=== PATIENT | male | born 1955 | race Two or more races ===

== ENCOUNTER 2017-07-03 09:26 | Day surgery (SDC) | payer BC ==
[2017-06-30 09:17] VITALS: BMI 31.3
[2017-07-03] MEDS ORDERED: PROPOFOL 20 ML ONE ×2 (09:31)
[2017-07-03 11:12] VITALS: BP 134/66; PULSE 62; TEMP 98.2
== END 2017-07-03 11:48 | disposition home or self-care (01) ==
LOC: FASU-ENDO 09:26
PROVIDERS: ATTEND Internal Medicine Gastroenterology
PROC: 0DJD8ZZ Inspection of Lower Intestinal Tract, Via Natural or Artificial Opening Endoscopic (ICD-10-PCS; principal; 2017-07-03 10:40)
DX: Z85.038 Personal history of other malignant neoplasm of large intestine (principal); Z98.0 Intestinal bypass and anastomosis status

== ENCOUNTER 2017-10-04 00:57 | Inpatient (IN) | payer BC ==
[2017-10-04] MEDS ORDERED: levETIRAcetam 500 MG/5 ML INJECTION VIAL IVPB ONE (01:06)
[2017-10-04] MEDS ORDERED: SODIUM CHLORIDE 1,000 ML IV ONE (01:08)
--- NOTE | 2017-10-04 01:08 | PDOC ---
History of Present Illness - General History Source: Patient Exam Limitations: No Limitations - History of Present Illness Initial Comments: 10/04/17 02:13 The patient is a 62 year old male with a significant PMH of colon ca(1994), hypertension, and hyperlipidemia who presents to the emergency department via EMS with a partial complex seizure. The patient was in the ED earlier today by which he was here for lower right leg numbness 2 days ago and pressure in the back of his head. The patient left the ED before being seen by an ED provider. The patient was brought in via EMS with partial complex seizure. The patient reports that he was feeling okay earlier today. He denies any symptoms prior to his episod. The patient denies any chest pain, shortness of breath, headache and dizziness.The patient denies fever, chills, nausea, vomit, diarrhea, constipation or urinary symptoms. The patient denies any other complaints. PCP: Dr. York <Cas Moffett - Last Filed: 10/04/17 02:13> <Kyra Ann - Last Filed: 10/04/17 02:53> - General Stated Complaint: SEIZURE Past History <Cas Moffett - Last Filed: 10/04/17 02:13> - Past Medical History Anemia: No Asthma: No Cancer: Yes (COLON CANCER 1994) Cardiac Disorders: No CVA: No COPD: No CHF: No Dementia: No Diabetes: No GI Disorders: Yes (COLON CANCER) Disorders: No HTN: Yes Hypercholesterolemia: Yes Liver Disease: No Seizures: No Thyroid Disease: No - Surgical History Abdominal Surgery: Yes (COLON RESECTION WITH CHEMO 1994) Appendectomy: No Cardiac Surgery: No Cholecystectomy: No Lung Surgery: No Neurologic Surgery: No Orthopedic Surgery: No - Suicide/Smoking/Psychosocial Hx Smoking History: Never smoked Have you smoked in the past 12 months: No Hx Alcohol Use: No Drug/Substance Use Hx: No Substance Use Type: Alcohol Hx Substance Use Treatment: No <Kyra Ann - Last Filed: 10/04/17 02:53> - Past Medical History Allergies/Adverse Reactions: Allergies Allergy/AdvReac Type Severity Reaction Status Date / Time No Known Allergies Allergy Verified 10/04/17 01:15 Home Medications: Ambulatory Orders Amlodipine Besylate/Benazepril [Lotrel 10-20 mg Capsule] 1 each PO DAILY Atorvastatin Ca [Lipitor] 80 mg PO HS 06/30/17 Hydrochlorothiazide [Hctz -] 12.5 mg PO DAILY 06/30/17 Review of Systems - Review of Systems Able to Perform ROS?: Yes Comments:: 10/04/17 02:04 CONSTITUTIONAL: (+) partial complex seizure Absent: fever, chills, diaphoresis, generalized weakness, malaise, loss of appetite HEENT: Absent: rhinorrhea, nasal congestion, throat pain, throat swelling, difficulty swallowing, mouth swelling, ear pain, eye pain, visual Changes CARDIOVASCULAR: Absent: chest pain, syncope, palpitations, irregular heart rate, lightheadedness , peripheral edema RESPIRATORY: Absent: cough, shortness of breath, dyspnea with exertion, orthopnea, wheezing, stridor, hemoptysis GASTROINTESTINAL: Absent: abdominal pain, abdominal distension, nausea, vomiting, diarrhea, constipation, melena, hematochezia GENITOURINARY: Absent: dysuria, frequency, urgency, hesitancy, hematuria, flank pain, genital pain MUSCULOSKELETAL: Absent: myalgia, arthralgia, joint swelling SKIN: Absent: rash, itching, pallor HEMATOLOGIC/IMMUNOLOGIC: Absent: easy bleeding, easy bruising, lymphadenopathy, frequent infections ENDOCRINE: Absent: unexplained weight gain, unexplained weight loss, heat intolerance, cold intolerance NEUROLOGIC: (+)seizure Absent: headache, focal weakness or paresthesias, dizziness, gait deferred, mental status changes, bladder or bowel incontinence PSYCHIATRIC: Absent: anxiety, depression, suicidal or homicidal ideation, hallucinations. <Cas Moffett - Last Filed: 10/04/17 02:13> *Physical Exam - Vital Signs Last Vital Signs Temp Pulse Resp BP Pulse Ox 97.7 F 77 18 164/80 98 10/04/17 01:09 10/04/17 01:09 10/04/17 01:09 10/04/17 01:09 10/04/17 01:26 - Physical Exam Comments: 10/04/17 02:03 GENERAL: (+) partial complex seizure Well developed, well nourished. Awake, alert and oriented X3. No acute distress. HEENT: Normocephalic, atraumatic. PERRLA, EOMI. No conjunctival pallor. Sclera are non- icteric. Moist mucous membranes. Oropharynx is clear. NECK: Supple. Full ROM. No JVD. Carotid pulses 2+ and symmetric, without bruits. No thyromegaly. No lymphadenopathy. CARDIOVASCULAR: Regular rate and rhythm. No murmurs, rubs, or gallops. Distal pulses are 2+ and symmetric. PULMONARY: No evidence of respiratory distress. Lungs clear to auscultation bilaterally. No wheezing, rales or rhonchi. ABDOMINAL: Soft. Non-tender. Non-distended. No rebound or guarding. No organomegaly. Normoactive bowel sounds. MUSCULOSKELETAL Normal range of motion at all joints. No bony deformities or tenderness. No CVA tenderness. EXTREMITIES: No cyanosis. No clubbing. No edema. No calf tenderness. SKIN: Warm and dry. Normal capillary refill. No rashes. No jaundice. NEUROLOGICAL: (+) right jacksonian march Alert, awake and oriented X3 ,appropriate. Cranial nerves 2-12 intact. No deficits to light touch and temperature in face, upper extremities and lower extremities. No motor deficits in the in face, upper extremities and lower extremities. Normoreflexic in the upper and lower extremities. Normal speech. Toes are down-going bilaterally. Gait is normal without ataxia. PSYCHIATRIC: Cooperative. Good eye contact. Appropriate mood and affect. <Cas Moffett - Last Filed: 10/04/17 02:13> ED Treatment Course - LABORATORY CBC & Chemistry Diagram: 10/04/17 01:16 10/04/17 01:16 - ADDITIONAL ORDERS Additional order review: 10/04/17 01:16 RBC 4.55 MCV 88.6 MCHC 34.3 RDW 12.7 MPV 10.6 Neutrophils % 65.7 Lymphocytes % 27.5 Monocytes % 6.3 Eosinophils % 0.2 Basophils % 0.3 - Medications Given in the ED: ED Medications Discontinued Medications Generic Name Dose Route Start Last Admin Trade Name Freq PRN Reason Stop Dose Admin Levetiracetam 1,000 mg 10/04/17 01:06 10/04/17 01:36 Keppra Injection - IVPB 10/04/17 01:07 1,000 mg ONCE ONE Administration Lorazepam 2 mg 10/04/17 01:14 10/04/17 01:24 Ativan Injection - IVPUSH 10/04/17 01:15 2 mg ONCE ONE Administration <Cas Moffett - Last Filed: 10/04/17 02:13> - LABORATORY CBC & Chemistry Diagram: 10/04/17 01:16 10/04/17 01:16 <Kyra Ann - Last Filed: 10/04/17 02:53> Medical Decision Making - Medical Decision Making 10/04/17 02:48 62-old male brought in by ambulance with partial complex seizure. Past medical history significant for hypertension and colon cancer in the remote past. Patient was alert while he he had a right sided seizure with a witnessed July Findings and reveal a 3.4 cm x 2.2 cm area of edema in the left parietal lobe. It probably represents vasogenic edema and there may be an underlying mass which measures approximately 1.7 cm However, is difficult to evaluate non-contrast CT MRI is recommended for better characterization. No shift or herniation No hemorrhage. Osseous structures are intact Clinical is Dr. Duncan who recommended Keppra 500 mg twice a day, he felt that one dose of Decadron was adequate. I have suspicion neurosurgeon, Dr. Muhammad and he requested MRI of the brain with and without contrast using NPR protocol <Kyra Ann - Last Filed: 10/04/17 02:53> *DC/Admit/Observation/Transfer - Attestations Scribe Attestion: 10/04/17 02:04 Documentation prepared by Cas Moffett, acting as medical support specialist for Kyra Ann MD. <Cas Moffett - Last Filed: 10/04/17 02:13> - Discharge Dispostion Decision to Admit order: Yes <Kyra Ann - Last Filed: 10/04/17 02:53> Diagnosis at time of Disposition: Seizure, Mass of brain - Discharge Dispostion Condition at time of disposition: Fair - Referrals Referrals: Manuel York MD [Primary Care Provider] - - Patient Instructions - Post Discharge Activity
[2017-10-04 01:15] VITALS: BMI 30.8
[2017-10-04 01:37] LABS: BASO % 0.3 % (0-2.0); EOS % 0.2 % (0-4.5); HEMATOCRIT 40.3 % (35.4-49); HEMOGLOBIN 13.8 GM/dL (11.7-16.9); LYMPH % 27.5 % (8-40); MCH 30.4 pg (25.7-33.7); MCHC 34.3 g/dl (32.0-35.9); MEAN CELL VOLUME 88.6 fl (80-96); MEAN PLT VOLUME 10.6 fl (7.5-11.1); MONO % 6.3 % (3.8-10.2); NEUT % 65.7 % (42.8-82.8); PLATELET COUNT 247 K/MM3 (134-434); RBC 4.55 M/mm3 (4.00-5.60); RDW 12.7 % (11.9-15.9); WHITE BLOOD COUNT 11.9 K/mm3 (4.0-10.0)
[2017-10-04 02:01] LABS: ALBUMIN 3.7 g/dl (3.4-5.0); ANION GAP 8 (8-16); BILIRUBIN,TOTAL 0.9 mg/dL (0.2-1.0); BLOOD UREA NITROGEN 12 mg/dL (7-18); CALCIUM 8.7 mg/dL (8.5-10.1); CHLORIDE 104 mmol/L (98-107); CO2 27 mmol/L (21-32); CREATININE 0.9 mg/dL (0.7-1.3); GLUCOSE,RANDOM 158 mg/dL (74-106); SGOT/AST 11 U/L (15-37); SGPT/ALT 29 U/L (12-78); SODIUM 139 mmol/L (136-145); TOT PROT 7.1 g/dl (6.4-8.2)
[2017-10-04 02:04] LABS: ALK PHOS 95 U/L (45-117)
[2017-10-04] MEDS ORDERED: DEXAMETHASONE SOD PHOSPHATE 20 MG/5 ML VIAL IVPB STA (02:10)
[2017-10-04 02:23] LABS: INR 1.12 (0.82-1.09); PROTHROMBIN TIME (PATIENT) 12.6 SEC (9.7-13.0)
--- NOTE | 2017-10-04 02:44 | PN ---
Teaching Attending Note Name of Resident: Melodie Kim ATTENDING PHYSICIAN STATEMENT I saw and evaluated the patient. I reviewed the resident's note and discussed the case with the resident. I agree with the resident's findings and plan as documented. SUBJECTIVE: 62 M with hx. of colon ca (95), Last colo 2-3 months ago (normal as per pt) HTN , HLD, who presents with partial complex seizure. He had RL leg numbness 2 days ago. Also with associated pressure to back of his head. He returned after seizure and had a witness seizure in ED. States all his symptoms have resolved. Denies any chest pain or pressure. No N, V,D. No fevers or chills. OBJECTIVE: Physical: VS: Vital Signs Period Temp Pulse Resp BP Sys/Gardiner Pulse Ox Last 24 Hr 97.7 F 77 18 164/80 98-98 GEN: NAD, Resting in bed, AA0X3 HEENT: NCAT, PERRL, Throat without erythema or exudates CARD: RRR S1, S2 RESP: CTAB ABD: BSx4, NTD to palpation EXT: - C/C/E NEURO: CN II- XII intact, MS +5/5 CBCD WBC 11.9 K/mm3 (4.0-10.0) H 10/04/17 01:16 RBC 4.55 M/mm3 (4.00-5.60) 10/04/17 01:16 Hgb 13.8 GM/dL (11.7-16.9) 10/04/17 01:16 Hct 40.3 % (35.4-49) 10/04/17 01:16 MCV 88.6 fl (80-96) 10/04/17 01:16 MCHC 34.3 g/dl (32.0-35.9) 10/04/17 01:16 RDW 12.7 % (11.9-15.9) 10/04/17 01:16 Plt Count 247 K/MM3 (134-434) 10/04/17 01:16 MPV 10.6 fl (7.5-11.1) 10/04/17 01:16 CMP Sodium 139 mmol/L (136-145) 10/04/17 01:16 Potassium 4.0 mmol/L (3.5-5.1) 10/04/17 01:16 Chloride 104 mmol/L (98-107) 10/04/17 01:16 Carbon Dioxide 27 mmol/L (21-32) 10/04/17 01:16 Anion Gap 8 (8-16) 10/04/17 01:16 BUN 12 mg/dL (7-18) 10/04/17 01:16 Creatinine 0.9 mg/dL (0.7-1.3) 10/04/17 01:16 Creat Clearance w eGFR > 60 (>60) 10/04/17 01:16 Calcium 8.7 mg/dL (8.5-10.1) 10/04/17 01:16 Total Bilirubin 0.9 mg/dL (0.2-1.0) 10/04/17 01:16 AST 11 U/L (15-37) L 10/04/17 01:16 ALT 29 U/L (12-78) 10/04/17 01:16 Alkaline Phosphatase 95 U/L (45-117) 10/04/17 01:16 Total Protein 7.1 g/dl (6.4-8.2) 10/04/17 01:16 Albumin 3.7 g/dl (3.4-5.0) 10/04/17 01:16 EKG: CXR: No Acute Process CT HEAD: Findings and reveal a 3.4 cm x 2.2 cm area of edema in the left parietal lobe. It probably represents vasogenic edema and there may be an underlying mass which measures approximately 1.7 cm ASSESSMENT AND PLAN: 62 M with hx. of colon ca (95), HTN, HLD, who presents with partial complex seizure 1.) Seizure- Most likely secondary to brain mass - Seizure percautions - MRI Brain w/wo con - FU CT HEAD - Keppra 500 mg BID - S/P Dexamethasone - Neuro consulted and spoken to by ED 2.) Brain Mass with Edema - MRI Brain w/wo - Neuro Sx - As per neuro Keppra for sx. PPx - Also, one dose of Dexamethasone, which was sufficient as per EDs conversation with Neuro - Will eventually need CT CAP 3.) Hx. of Colon Ca - last colo 2-3 months ago - Normal as per pt. 3.) Dvt Ppx - SCDS Place in To8[facility]
--- NOTE | 2017-10-04 04:10 | HP ---
CHIEF COMPLAINT: seizure PCP: Dr. York GI: Dr. Guerrero HISTORY OF PRESENT ILLNESS: 62 yr old man with HTN, HLD, hx of colon ca(resection in 1994, recent colonoscopy 2-3 months ago without pathology) BIBEMS for new onset seizure. Pt was in ED earlier yesterday (10/03 4pm) for numbness in his lower right leg, after waiting 4 hours to be seen, he left BME. At home his son notes changes his is ability to move, pt has difficulty standing, worsening of his right leg numbness that now extended to his right torso. as they walked him to the car, he began to stiffen and tremble, by the time they got to the car his face was also affected with his mouth having turned down corners. the episode lasted 2- 3mins, he continued to have difficulty controlling this right side. He had a witnessed jacksonian seizure in the ED. during both episodes pt was conversant, alert, awake, no loss of bowel function , no post-ictal state. Pt was born in [facility], came to the [place] >30yrs ago, went back to visit 2 yrs ago. No travel outside of [facility]. 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 ER course was notable for: (1) head CT (2) decadron 10 (3) Recent Travel: none PAST MEDICAL HISTORY: HTN Colon Ca dx'd in 1994, s/p resection and chemo PAST SURGICAL HISTORY: colon resection in 1994 Social History: Smoking: never Alcohol: denies Drugs: denies Family History: mother with breast ca Allergies No Known Allergies Allergy (Verified 10/04/17 01:15) HOME MEDICATIONS: [facility], family brought in the bottles. Medication Instructions Recorded Amlodipine Besylate/Benazepril 1 each PO DAILY 03/21/12 [Lotrel 10-40 mg Capsule] Atorvastatin Ca [Lipitor] 80 mg PO HS 06/30/17 Hydrochlorothiazide [Hctz -] 12.5 mg PO DAILY 06/30/17 REVIEW OF SYSTEMS CONSTITUTIONAL: Absent: fever, chills, diaphoresis, generalized weakness, malaise, loss of appetite, weight change HEENT: Absent: rhinorrhea, nasal congestion, throat pain, throat swelling, difficulty swallowing, mouth swelling, ear pain, eye pain, visual changes CARDIOVASCULAR: Absent: chest pain, syncope, palpitations, irregular heart rate, lightheadedness , peripheral edema RESPIRATORY: Absent: cough, shortness of breath, dyspnea with exertion, orthopnea, wheezing, stridor, hemoptysis GASTROINTESTINAL: Absent: abdominal pain, abdominal distension, nausea, vomiting, diarrhea, constipation, melena, hematochezia GENITOURINARY: Absent: dysuria, frequency, urgency, hesitancy, hematuria, flank pain, genital pain MUSCULOSKELETAL: Absent: myalgia, arthralgia, joint swelling, back pain, neck pain SKIN: Absent: rash, itching, pallor HEMATOLOGIC/IMMUNOLOGIC: Absent: easy bleeding, easy bruising, lymphadenopathy, frequent infections ENDOCRINE: Absent: unexplained weight gain, unexplained weight loss, heat intolerance, cold intolerance NEUROLOGIC: Present:seizure, Absent: headache, focal weakness or paresthesias, dizziness, unsteady gait, mental status changes, bladder or bowel incontinence PSYCHIATRIC: Absent: anxiety, depression, hallucinations. PHYSICAL EXAMINATION Vital Signs - 24 hr 10/04/17 10/04/17 01:09 01:26 Temperature 97.7 F Pulse Rate 77 Respiratory 18 Rate Blood Pressure 164/80 O2 Sat by Pulse 98 98 Oximetry (%) GENERAL: Awake, alert, and fully oriented, in no acute distress. HEAD: Normal with no signs of trauma. EYES: Pupils equal, round and reactive to light, extraocular movements intact, sclera anicteric, conjunctiva clear. No lid lag. EARS, NOSE, THROAT: Ears normal, nares patent, oropharynx clear without exudates. Moist mucous membranes. NECK: Normal range of motion, supple without lymphadenopathy, JVD, or masses. LUNGS: Breath sounds equal, clear to auscultation bilaterally. No wheezes, and no crackles. No accessory muscle use. HEART: Regular rate and rhythm, normal S1 and S2 without murmur, rub or gallop. ABDOMEN: well-healed abdominal scar. Soft, nontender, not distended, normoactive bowel sounds, no guarding, no rebound, no masses. No hepatomegaly or splenomegaly. MUSCULOSKELETAL: Normal range of motion at all joints. No bony deformities or tenderness. No CVA tenderness. no paraspinal/spinal tenderness. UPPER EXTREMITIES: 2+ radial pulses, warm, well-perfused. No cyanosis. No clubbing. No peripheral edema. LOWER EXTREMITIES: 2+ dp pulses, warm, well-perfused. No calf tenderness. No peripheral edema. right anterior leg with abrasion - few days old from soccer - no surrounding erythema, no drainage. NEUROLOGICAL: Cranial nerves II-XII intact. Normal speech. facial symmetry, uvual midline. 5/5 handgrip, biceps/triceps/shoulder extension and flexion. 5/5 flex and ext on hip/knee/ankle/toes. downward toes. 2+ biceps/brachoradialis, knee and ankle reflexes b/l. sensation grossly intact on face, arms, lower legs , and abdomen, denies numbness/parasthesias. PSYCHIATRIC: Cooperative. Good eye contact. Appropriate mood and affect. SKIN: Warm, dry, normal turgor, no rashes or lesions noted, normal capillary refill. Laboratory Results - last 24 hr 10/04/17 10/04/17 10/04/17 01:16 01:16 01:16 WBC 11.9 H RBC 4.55 Hgb 13.8 Hct 40.3 MCV 88.6 MCH 30.4 MCHC 34.3 RDW 12.7 Plt Count 247 MPV 10.6 Neutrophils % 65.7 Lymphocytes % 27.5 Monocytes % 6.3 Eosinophils % 0.2 Basophils % 0.3 PT with INR 12.60 INR 1.12 Sodium 139 Potassium 4.0 Chloride 104 Carbon Dioxide 27 Anion Gap 8 BUN 12 Creatinine 0.9 Creat Clearance w eGFR > 60 Random Glucose 158 H Lactic Acid Calcium 8.7 Total Bilirubin 0.9 AST 11 L ALT 29 Alkaline Phosphatase 95 Creatine Kinase 89 Troponin I 0.03 Total Protein 7.1 Albumin 3.7 10/04/17 02:00 WBC RBC Hgb Hct MCV MCH MCHC RDW Plt Count MPV Neutrophils % Lymphocytes % Monocytes % Eosinophils % Basophils % PT with INR INR Sodium Potassium Chloride Carbon Dioxide Anion Gap BUN Creatinine Creat Clearance w eGFR Random Glucose Lactic Acid 1.3 Calcium Total Bilirubin AST ALT Alkaline Phosphatase Creatine Kinase Troponin I Total Protein Albumin ASSESSMENT/PLAN: 62 yr old man with HTN, colon ca, presents with new partial complex seizure found to have brain lesion admitted to [facility]. #seizure likely caused by brain lesion - ddx include malignancy(mets vs new primary), infection - f/u neurology and neurosurg recs, MRI pending, keppra 500mg po BID, one dose decadron given in ED - seizure precautions, neuro checks - r/o HIV(pt consents to be tested), r/o dm #leucocytosis - reactive vs infection, trend in the am, monitor for signs of infxn - pt without fever, chest xray clear, u/a pending, monitor off abx for now #HTN - lotrel , hospital formulary: norvasc 10 & lisinopril 40mg daily - hctz 12.5 mg daily #dvt: scd's, monitor off medical ac due to unclear nature of brain lesion #diet; low sodium #Code status: full code, designates his as healthcare proxy, form to be signed. Visit type - Emergency Visit Emergency Visit: Yes ED Registration Date: 10/04/17 Care time: The patient presented to the Emergency Department on the above date and was hospitalized for further evaluation of their emergent condition. - New Patient This patient is new to me today: Yes Date on this admission: 10/04/17 - Critical Care Critical Care patient: No Hospitalist Screening - Colonoscopy Questionnaire Colonoscopy Questionnaire: Colonoscopy Questionnaire - Patient: 50 - 75 years old and never had a screening colonoscopy: No History of colon or rectal polyps, or CA: Yes History of IBD, Crohn's disease or UC: No History of abdominal radiation therapy as a child: No - Relative: 1 with colon or rectal CA, or polyps at age 60 or younger: No Colon or rectal CA diagnosed at age 45 or younger: No Multiple relatives with colon or rectal CA: No (pt had a colonoscopy 2-3mo ago) - Outcome: Screening Result: Positive Screen
[2017-10-04 08:23] LABS: BASO % 0.4 % (0-2.0); HEMATOCRIT 38.8 % (35.4-49); HEMOGLOBIN 13.8 GM/dL (11.7-16.9); LYMPH % 12.9 % (8-40); MCH 31.4 pg (25.7-33.7); MCHC 35.6 g/dl (32.0-35.9); MEAN CELL VOLUME 88.2 fl (80-96); MEAN PLT VOLUME 10.1 fl (7.5-11.1); MONO % 1.2 % (3.8-10.2); NEUT % 85.5 % (42.8-82.8); PLATELET COUNT 231 K/MM3 (134-434); RDW 12.9 % (11.9-15.9); WHITE BLOOD COUNT 10.4 K/mm3 (4.0-10.0)
--- NOTE | 2017-10-04 09:32 | CON.NEURO ---
Consult - Alcohol/Substance Use Hx Alcohol Use: No - Smoking History Smoking history: Never smoked Have you smoked in the past 12 months: No Home Medications - Allergies Allergies/Adverse Reactions: Allergies Allergy/AdvReac Type Severity Reaction Status Date / Time No Known Allergies Allergy Verified 10/04/17 01:15 - Home Medications Home Medications: Ambulatory Orders Amlodipine Besylate/Benazepril [Lotrel 10-20 mg Capsule] 1 each PO DAILY Atorvastatin Ca [Lipitor] 80 mg PO HS 06/30/17 Hydrochlorothiazide [Hctz -] 12.5 mg PO DAILY 06/30/17 Physical Exam-Neuro Vital Signs: Vital Signs Temperature 97.4 F L 10/04/17 06:00 Pulse Rate 56 L 10/04/17 06:00 Respiratory Rate 18 10/04/17 06:00 Blood Pressure 111/66 10/04/17 06:00 O2 Sat by Pulse Oximetry (%) 99 10/04/17 04:30 Labs: CBC, BMP 10/04/17 08:11 10/04/17 01:16 INR, PTT INR 1.12 (0.82-1.09) 10/04/17 01:16
--- NOTE | 2017-10-04 09:36 | CON.NEURO ---
Consult - History of Present Illness History of Present Illness: 62 yr old man with HTN, HLD, hx of colon ca(resection in 1994, recent colonoscopy 2-3 months ago without pathology) BIBEMS for new onset seizure. Pt was in ED earlier yesterday (10/03 4pm) for numbness in his lower right leg, after waiting 4 hours to be seen, he left BME. At home his son notes changes his is ability to move, pt has difficulty standing, worsening of his right leg numbness that now extended to his right torso. as they walked him to the car, he began to stiffen and tremble, by the time they got to the car his face was also affected with his mouth having turned down corners. the episode lasted 2- 3mins, he continued to have difficulty controlling this right side. He had a witnessed jacksonian seizure in the ED. during both episodes pt was conversant, alert, awake, no loss of bowel function , no post-ictal state. CT HD IMPRESSION: Vasogenic edema in the left posterior frontal/parietal high convexity with questionable poorly visualized lesion measuring 1.7 cm for which correlation with contrast-enhanced MRI of the brain is recommended started on keppra and decadron in ER. no new events; denies LUJAN or focal co - History Source History Provided By: Patient, Medical Record - Alcohol/Substance Use Hx Alcohol Use: No - Smoking History Smoking history: Never smoked Have you smoked in the past 12 months: No Home Medications - Allergies Allergies/Adverse Reactions: Allergies Allergy/AdvReac Type Severity Reaction Status Date / Time No Known Allergies Allergy Verified 10/04/17 01:15 - Home Medications Home Medications: Ambulatory Orders Amlodipine Besylate/Benazepril [Lotrel 10-20 mg Capsule] 1 each PO DAILY Atorvastatin Ca [Lipitor] 80 mg PO HS 06/30/17 Hydrochlorothiazide [Hctz -] 12.5 mg PO DAILY 06/30/17 Physical Exam-Neuro Vital Signs: Vital Signs Temperature 97.4 F L 10/04/17 06:00 Pulse Rate 56 L 10/04/17 06:00 Respiratory Rate 18 10/04/17 06:00 Blood Pressure 111/66 10/04/17 06:00 O2 Sat by Pulse Oximetry (%) 99 10/04/17 04:30 Constitutional: Yes: Well Nourished, No Distress Labs: CBC, BMP 05/16/18 08:11 10/04/17 01:16 INR, PTT INR 1.12 (0.82-1.09) 10/04/17 01:16 - Neuro Exam Level Of Consciousness: Yes: Alert, Oriented to Person (EOMI, VFF, no aphasia , no facial, motor 5/5, reflexes symmetric ) Imaging - Results Cat Scan: Report Reviewed, Image Reviewed Problem List - Problems (1) Mass of brain Code(s): G93.9 - DISORDER OF BRAIN, UNSPECIFIED (2) Seizure Code(s): R56.9 - UNSPECIFIED CONVULSIONS Assessment/Plan 62 yr old man with HTN, HLD, hx of colon ca(resection in 1994, recent colonoscopy 2-3 months ago without pathology) with new onset focal seizure found to have Left parietal brain lesion --primary CA vs met( colon cancer has been in remission reportedly) MRI BRAIN WITH STEPHAN NEROSURGICAL EVAL-biopsy may be needed if no active primary ONC EVAL cont keppra 500BID can continue decadron [address] OLSON
[2017-10-04] MEDS ORDERED: HYDROCHLOROTHIAZIDE 12.5 MG CAPSULE (FP) PO SCH (10:00)
[2017-10-04] MEDS ORDERED: PATIENT'S OWN MEDICATION (NON-FORMULARY) (Amlodipine Besylate/Benazepril [Lotrel 10-20 Mg PO SCH (10:00)
[2017-10-04] MEDS: levETIRAcetam 500 MG TABLET (FP) PO SCH ×2 (10:04→21:16)
[2017-10-04] MEDS: amLODIPine BESYLATE 10 MG TABLET (FP) PO SCH (10:04)
[2017-10-04] MEDS: LISINOPRIL 20 MG TABLET (FP) PO SCH (10:04)
--- NOTE | 2017-10-04 10:40 | EKG ---
Test Reason : Blood Pressure : / mmHG Vent. Rate : 078 BPM Atrial Rate : 078 BPM P-R Int : 172 ms QRS Dur : 090 ms QT Int : 398 ms P-R-T Axes : 052 005 035 degrees QTc Int : 453 ms NORMAL SINUS RHYTHM NORMAL ECG NO PREVIOUS ECGS AVAILABLE Confirmed by ANDI BALTAZAR, YOBANY ([id number]) on 10/04/2017 10:39:29 AM Referred By: Confirmed By:YOBANY ESCAMILLA MD
[2017-10-04 11:02] LABS: URINE APPEARANCE CLEAR; URINE BILIRUBIN NEGATIVE (<2.0 mg/dL); URINE COLOR LTYELLOW; URINE GLUCOSE (UA) NEGATIVE (NEGATIVE); URINE KETONE NEGATIVE (NEGATIVE); URINE LEUK ESTERASE NEGATIVE (NEGATIVE); URINE NITRITE NEGATIVE (NEGATIVE); URINE PROTEIN NEGATIVE (NEGATIVE); URINE UROBILINOGEN NEGATIVE mg/dL (0.2-1.0)
--- NOTE | 2017-10-04 11:47 | CONSULT ---
Consult - text type - Consultation Consultation Note: Kam Orlando is a 62 year male who is a colon cancer survivor and presented to the [facility] ER on Tuesday October 03, 2017 with a chief complaint of Right leg numbness which progressed to his Right thorax. He left the ER before being seen and later returned after an ictal event. He had another seizure with Jacksonian march on the Right while in the ER. CT demonstrates a 1.7cm lesion in the postcentral gyrus with surrounding vasogenic edema. The patient was treated for colon cancer in 1994 with chemo and radiation and has been doing relatively well until these recent events. MRI brain is pending. The patient was admitted and given IV steroids with GI prophylaxis as well as seizure prophylaxis. He improved on this regimen. The differential diagnosis for this lesion is led by likely metastatic focus with colon cancer being a potential primary source. Metastatic lesion from another primary would be second , followed by primary brain tumor (glioma) and then abscess. There are no recent fevers or suggestion of immunocompromised state to support this possibility. I had a long discussion with the patient and family regarding the risks, benefits and alternatives to stereotactic microsurgical biopsy/resection of this lesion. I explained that the risks included, but were not limited to: , coma, paralysis, bleeding, infection, CSF leakage possibly requiring spinal drainage or additional surgery and failure to relieve his symptoms. All questions were answered. Informed consent was obtained. The patient and his family were given time to contemplate their options. I offered them the option of seeking another opinion or another surgeon. All were in agreement with proceeding with a surgery as described. I explained that lesions proximity to the motor and sensory strips increased the risks of postoperative neurological deficits (Right sided sensory or motor weakness which might be temporary or permanent) and that allowing this lesion to progress would increase these risks. Goals of treatment were explained to be : Establishment of a tissue diagnosis, reduction of disease burden to allow adjuvant therapy to be maximally effective and to relieve mass effect.
[2017-10-04] MEDS: DEXAMETHASONE 4 MG TABLET (FP) PO SCH ×3 (12:25→23:26)
--- NOTE | 2017-10-04 13:02 | PN ---
Teaching Attending Note Name of Resident: Luanne Collazo ATTENDING PHYSICIAN STATEMENT I saw and evaluated the patient. I reviewed the resident's note and discussed the case with the resident. I agree with the resident's findings and plan as documented. SUBJECTIVE: No fever or chills, no LUJAN , Abd pain, no visual changes, no weakness. but he still feels numbness in lateral aspect of R thigh OBJECTIVE: NAD , AAox3 CV: RRR. 2/6 SM at RUSB, and 3/6 SM at apex. Lungs: CTAb Ext: no edema. abrasion on R givens Neuro : EOMI, round equal pupils , reactive to light , uvula and tongue at mid line . nl facial sensation . Strength 5/5 in upper and lower extremities, proximally and distally . sensation to light touch Nl. reflexes 2+ knee jerk, biceps bilaterally . nl nose to finger No LAP in groin, axillae or neck ASSESSMENT AND PLAN: Pleasant 62 y/o gentleman with h/o colon cancer s/p resection and chemo, HTn, HLP, who presented with new onset seizure and was found to have a brain mass. 1- New onset seizure, due to the possible mass - cont keppra - seizure precautions 2- Brain edema/mass: ? mets from colon cancer/other remote primary Or primary [employer] malignancy. - cont dex q 6 hr - MRI of brain w/wo micah - check CT of Chest/abd/pelvis with Contrast to r/o other mets/primary ca - No lymphademnopathy in neck/groin/axillae. will evaluate for retroperitoneal LAP - HIV neg - will consult ONC - for Or tomorrow for mass resection/Bx pending MRI 3- new diagnosis of DM. A1c 6.6. - SSI while on steroids - metformin as out pt probably 4- LLL infiltrate on Cxray. no clear evidence of infection despite minimal leukocytosis - hold off Abx - follow CT 5- HTN: cont lisinopril. hold HCTZ to avoid CODY. hydrate x 24 hr 6- DVT PX
--- NOTE | 2017-10-04 13:31 | MSN ---
Admitting History and Physical - Admission Chief Complaint: Numbness and tingling of lower right limb with seizure History of Present Illness: Patient is a 62 year old man with past med hx of HTN, HLD, and colon cancer status post colon resection in 1994 who presented to the ER after a seizure episode yesterday night. 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 The patient stated that he ignored the sensation until yesterday when he decided to come to the ER at 4pm. After waiting for a period of time the patient decided to leave the ER without being seen. While at home at 11pm that night the patient stated that he felt increased numbness and weakness in his right lower extremity accompanied by a feeling of pressure in his head. His symptoms progressed into convulsion of the entire right side of his body and face. The patient was standing at the time of the event but states he stayed on his feet without falling. The patient denies any loss of consciousness, urinary incontinence, loss of bowels, biting of his oral mucosa, or post-ictal symptoms. The patient was again brought to the ER where he had a second seizure that he described as having the same symtomatology as the first seizure. The patient was given decadron, started on keppra in the ER and a CT was obtained showing left temporal lobe lesion and edema. To the patient reports feeling better. The patient states that he does not have any feeling of numbness or weakness in his right lower limb or any other focal neurological deficits. ROS is also negative for any headache, fever, chills, N/V, abdominal pain, trouble speaking, trouble seeing, trouble swallowing or diarrhea. The patient also denies any recent travel or sick contacts. History Source: Patient Limitations to Obtaining History: No Limitations - Past Medical History Cardiovascular: Yes: HTN, Hyperlipdemia Gastrointestinal: Yes: Cancer (colon cancer in 1994) - Past Surgical History Past Surgical History: Yes: Colectomy (colon cancer resection in 1994) - Smoking History Smoking history: Never smoked Have you smoked in the past 12 months: No - Alcohol/Substance Use Hx Alcohol Use: No - Social History ADL: Independent History of Recent Travel: No Home Medications - Allergies Allergies/Adverse Reactions: Allergies Allergy/AdvReac Type Severity Reaction Status Date / Time No Known Allergies Allergy Verified 10/04/17 01:15 - Home Medications Home Medications: Ambulatory Orders Amlodipine Besylate/Benazepril [Lotrel 10-20 mg Capsule] 1 each PO DAILY Atorvastatin Ca [Lipitor] 80 mg PO HS 06/30/17 Hydrochlorothiazide [Hctz -] 12.5 mg PO DAILY 06/30/17 Family Disease History - Family Disease History Family Disease History: Other: Mother (colonic polyps ) Review of Systems - Review of Systems Constitutional: denies: Chills, Diaphoresis, Fever Eyes: denies: Blurred Vision, Double Vision, Recent Change in Vision HENT: denies: Difficult Swallowing, Hearing Loss Neck: reports: No Symptoms Cardiovascular: denies: Chest Pain, Shortness of Breath Respiratory: denies: Cough, SOB Gastrointestinal: denies: Abdominal Pain, Diarrhea, Nausea, Vomiting Musculoskeletal: reports: Muscle Weakness (moderate weakness stated in the right lower limb) Neurological: denies: Change in LOC, Change in Speech, Confusion, Headache Physical Examination Vital Signs: Vital Signs Temperature 97.9 F 10/04/17 10:00 Pulse Rate 69 10/04/17 10:00 Respiratory Rate 18 10/04/17 10:00 Blood Pressure 122/66 10/04/17 10:00 O2 Sat by Pulse Oximetry (%) 96 10/04/17 09:00 Constitutional: Yes: Well Nourished, No Distress, Calm Eyes: Yes: Conjunctiva Clear, EOM Intact, Other (pupils non-reactive) HENT: Yes: Atraumatic, Normocephalic. No: Pharyngeal Erythema, Rhinnorhea, Thrush Neck: Yes: Supple, Trachea Midline. No: Lymphadenopathy Cardiovascular: Yes: Regular Rate and Rhythm, Other (systolic murmur heard at the apex of the heart consistent with mitral reguritation) Respiratory: Yes: Regular, CTA Bilaterally Gastrointestinal: Yes: Normal Bowel Sounds, Soft. No: Tenderness Musculoskeletal: No: Muscle Pain, Muscle Weakness Edema: No Peripheral Pulses: Left Doralis Pedis: 2+, Right Dorsalis Pedis: 2+ Neurological: Yes: Cran Nerves II-XII Intact, Unsteady Gait. No: Aphasia, Asterixis, Ataxia, Numbness, Paresthesia, Tingling, Tremors, Weakness ...Motor Strength: WNL Labs: CBC, BMP 10/04/17 08:11 05/16/18 01:16 Problem List - Problems (1) Mass of brain Code(s): G93.9 - DISORDER OF BRAIN, UNSPECIFIED (2) Seizure Code(s): R56.9 - UNSPECIFIED CONVULSIONS Assessment/Plan Assessment/Plan: Patient is a 62 year old male with past medical hx of HTN, HLD , and colon Ca (1994) who presented with right sided partial seizure and right sided lower limb numbness/weakness that was found to have a left temporal lobe lesion suspicious for brain metastasis, primary neoplasm, or infectious disease. # Partial Seizure and right sided lower extremity weakness/numbness - most likely secondary to metastatic colon ca to the brain - differential diagnosis included other metastatic Ca, primary neoplasm or infectious disease - Neurosurgery Randi consulted. Thinks it is mostly likely metastatic disease but needs the MRI to make final decision. - MRI is pending. If MRI is consistent with metastatic disease patient to have stereotactic microsurgery with Dr. Bryan tomorrow. This was explained to patient. - Nuerology Dr. Duncan consulted - As per dee dee, will continue kepra 500mg BID for seizure prphylaxis and will start decadron 4mg q6 for brain edema - Will obtain CT of abdomen and chest for staging and metastatic source - HPV testing consented to R/O immunocompromised state - D/C O2 3L because of normal O2 saturation - NPO after midnight for surgical purposes # HTN - BP WNL - D/C HCTZ 12.5mg po daily in order to preserve renal function for upcoming contrast MRI - continue Amlodipine 10mg PO daily and lisinopril 40 mg PO daily # Diabetes - A1c 6.6 - start insulin sliding scale - start oral medication on D/C # Leukocytosis - WBC 11.9 - secondary to reaction to seizure vs infectious process - continue to trend DVT - SCD's F/E/N - 1L N/S - Electrolytes WNL - low sodium diet with NPO after midnight
[2017-10-04] MEDS ORDERED: HEPARIN NA (PORCINE) 5,000 UNITS/ML 1ML VIAL SQ SCH (14:00)
[2017-10-04] MEDS ORDERED: SODIUM CHLORIDE 1,000 ML IV SCH (14:45)
--- NOTE | 2017-10-04 14:47 | PN ---
Physical Exam: SUBJECTIVE: Patient seen and examined at bedside. No acute events overnight. Today, pt states that he is "feeling well," without deficits. Denies LUJAN, fever, chills, SOB, chest pain, or change in motor function of upper or lower extremities. OBJECTIVE: Vital Signs Period Temp Pulse Resp BP Sys/Gardiner Pulse Ox Last 24 Hr 97.4 F-97.9 F 55-77 18-18 111-164/65-80 96-100 GENERAL: The patient is lying comfortably in bed, awake, alert, and fully oriented, in no acute distress. HEAD: Normal with no signs of trauma. EYES: PERRL, extraocular movements intact, sclera anicteric, conjunctiva clear. No ptosis. ENT: Ears normal, nares patent, oropharynx clear without exudates, moist mucous membranes. NECK: Trachea midline,supple. LUNGS: Breath sounds equal, clear to auscultation bilaterally, no wheezes, no crackles, no accessory muscle use. HEART: Regular rate and rhythm, S1, S2 without rub or gallop. +systolic murmur appreciated at apex. ABDOMEN: Soft, obese, nontender, nondistended, normoactive bowel sounds EXTREMITIES: 2+ dorsalis pedis pulses, warm, well-perfused, no edema. NEUROLOGICAL: Cranial nerves II through XII grossly intact. Normal speech. Uvula , tongue midline. Motor strength 4/5 in upper and lower extremities. Sensation intact. Cerebellar function intact. PSYCH: Normal mood, normal affect. SKIN: Warm, dry, normal turgor Laboratory Results - last 24 hr 10/04/17 10/04/17 10/04/17 01:16 01:16 01:16 WBC 11.9 H RBC 4.55 Hgb 13.8 Hct 40.3 MCV 88.6 MCH 30.4 MCHC 34.3 RDW 12.7 Plt Count 247 MPV 10.6 Neutrophils % 65.7 Lymphocytes % 27.5 Monocytes % 6.3 Eosinophils % 0.2 Basophils % 0.3 PT with INR 12.60 INR 1.12 Sodium 139 Potassium 4.0 Chloride 104 Carbon Dioxide 27 Anion Gap 8 BUN 12 Creatinine 0.9 Creat Clearance w eGFR > 60 Random Glucose 158 H Calcium 8.7 Total Bilirubin 0.9 AST 11 L ALT 29 Alkaline Phosphatase 95 Creatine Kinase 89 Troponin I 0.03 Total Protein 7.1 Albumin 3.7 10/04/17 10/04/17 10/04/17 08:11 08:11 08:11 WBC 10.4 H RBC 4.40 Hgb 13.8 Hct 38.8 MCV 88.2 MCH 31.4 MCHC 35.6 RDW 12.9 Plt Count 231 MPV 10.1 Neutrophils % 85.5 H D Lymphocytes % 12.9 D Monocytes % 1.2 L D Eosinophils % 0.0 D Basophils % 0.4 Hemoglobin A1c % 6.6 H C-Reactive Protein 1.9 H TSH 1.62 Active Medications Generic Name Dose Route Start Last Admin Trade Name Freq PRN Reason Stop Dose Admin Amlodipine Besylate 10 mg 10/04/17 10:00 10/04/17 10:04 Norvasc - PO 10 mg DAILY TIFFANIE Administration Atorvastatin Calcium 80 mg 10/04/17 22:00 Lipitor - PO HS TIFFANIE Dexamethasone 4 mg 10/04/17 12:00 10/04/17 12:25 Decadron - PO 4 mg Q6HPO TIFFANIE Administration Heparin Sodium (Porcine) 5,000 unit 10/04/17 14:00 10/04/17 13:53 Heparin - SQ 5,000 unit TID TIFFANIE Administration Sodium Chloride 1,000 mls @ 100 mls/hr 10/04/17 14:45 Normal Saline - IV 10/05/17 00:44 ASDIR TIFFANIE Levetiracetam 500 mg 10/04/17 10:00 10/04/17 10:04 Keppra - PO 500 mg BID TIFFANIE Administration Lisinopril 40 mg 10/04/17 10:00 10/04/17 10:04 Prinivil PO 40 mg DAILY TIFFANIE Administration Radiology 10/04/17: CXR: shallow inspiration. No evidence of widening of superior mediastinum. The heart is borderline enlarged. Normal contous of the thoracic aorta. Normal aeration of the right lung. The right diaphragm is slightly elevated. No pneumothorax, or large pleural effusion is seen. No evidence of CHF. 10/04/17: Head CT without contrast: vasogenic edema of the left posterior frontal /parietal high convexity with questionable poorly visualized lesion measuring 1.7cm for which correlation with contrast-enhanced MRI of the brain recommended ASSESSMENT/PLAN: 62 y/o M with PMH HTN, HLD, hx colon CA (resected 1994), BIBEMS for new onset seizure. Pt found to have 3.4x2.2cm edema in L parietal lobe likely vasogenic 2/ 2 underlying 1.7cm mass. #1.7 cm L parietal lobe mass, possible mets 2/2 colon CA -Neurology- Dr. Duncan -Neurosurgery- Dr. Elizabeth -for likely resection/bx in OR tomorrow, awaiting brain MRI result -F/u chest, abd, pelvis w/contrast - to r/o alternative mets -NPO after midnight -Hydrate with 1L IVF, as will receive contrast -Dexamethasone 4mg PO q6h for decompression -neurochecks q4h #New onset seizure, likely 2/2 parietal lobe mass -Keppra 500mg PO BID for sz prophylaxis -seizure precautions, padding #Hx colon CA (resected 1994) -Pathology report from past colonoscopy- pending, primary has been contacted -Heme-onc consult - Dr. Smith -F/u CEA, LDH #HTN-currently controlled -Continue lisinopril 40 mg PO qd -amlodipine 10mg PO qd -will d/c HCTZ 12.5 mg PO qd d/t upcoming MRI w/contrast #New DM -may be exacerbated by steroids -A1c 6.6 -ISS ACHS -BGM -will likely start on metformin as outpt if renal fnc, GFR permits #HLD -Continue lipitor 80 mg PO qHS #F/E/N -to receive 1L IVF d/t contrast -continue to follow lytes -NPO after midnight, surgery tomorrow #PPX -Hep 5000 SQ TID - will hold after midnight for surgery tomorrow #Dispo -Continued monitoring on tele Visit type - Emergency Visit Emergency Visit: No - New Patient This patient is new to me today: No - Critical Care Critical Care patient: No
--- NOTE | 2017-10-04 15:41 | SPA.PREOP ---
- PRE-OP NOTE Dx: Left parietal lobe mass, vasogenic edema, midline shift Planned Procedure: stereotactic microsurgical biopsy/resection of this lesion Surgeon: Carlos Bryan Consent: Obtained after surgeon explained all risks, benefits and alternatives. Opportunity for questions. Patient had none. Understood and signed without reservation. Last Vital Signs Temp Pulse Resp BP Pulse Ox 97.4 F L 72 18 125/70 96 10/04/17 14:00 10/04/17 14:00 10/04/17 10:00 10/04/17 14:00 10/04/17 09:00 Lab Results WBC 10.4 K/mm3 (4.0-10.0) H 10/04/17 08:11 RBC 4.40 M/mm3 (4.00-5.60) 10/04/17 08:11 Hgb 13.8 GM/dL (11.7-16.9) 10/04/17 08:11 Hct 38.8 % (35.4-49) 10/04/17 08:11 MCV 88.2 fl (80-96) 10/04/17 08:11 MCHC 35.6 g/dl (32.0-35.9) 10/04/17 08:11 RDW 12.9 % (11.9-15.9) 10/04/17 08:11 Plt Count 231 K/MM3 (134-434) 10/04/17 08:11 Sodium 139 mmol/L (136-145) 10/04/17 01:16 Potassium 4.0 mmol/L (3.5-5.1) 10/04/17 01:16 Chloride 104 mmol/L (98-107) 10/04/17 01:16 Carbon Dioxide 27 mmol/L (21-32) 10/04/17 01:16 Anion Gap 8 (8-16) 10/04/17 01:16 BUN 12 mg/dL (7-18) 10/04/17 01:16 Creatinine 0.9 mg/dL (0.7-1.3) 10/04/17 01:16 Random Glucose 158 mg/dL (74-106) H 10/04/17 01:16 Calcium 8.7 mg/dL (8.5-10.1) 10/04/17 01:16 Blood Type O POSITIVE 10/04/17 01:16 Antibody Screen Negative 10/04/17 01:16 INR 1.12 (0.82-1.09) 10/04/17 01:16 Problem List - Problems (1) Mass of brain Assessment/Plan: 1. NPO after midnight 2. Medical optimization. 3. f/u Cx/abd/pelvis w/contrast - to r/o alternative mets 4. Dexamethasone 4mg PO q6h 5. Neurochecks q4h 6. Keppra 500mg PO BID Code(s): G93.9 - DISORDER OF BRAIN, UNSPECIFIED (2) Seizure Code(s): R56.9 - UNSPECIFIED CONVULSIONS Visit type - Case Type Case Type: ED Admission - New patient This patient is new to me today: Yes Date on this admission: 10/04/17
--- NOTE | 2017-10-04 16:01 | CONSULT ---
Consult Consult Specialty:: Oncology - Past Medical History Cardio/Vascular: Yes: HTN, Hyperlipdemia Gastrointestinal: Yes: Cancer (colon cancer in 1994) - Past Surgical History Past Surgical History: Yes: Colectomy (colon cancer resection in 1994) - Alcohol/Substance Use Hx Alcohol Use: No - Smoking History Smoking history: Never smoked Have you smoked in the past 12 months: No - Social History ADL: Independent History of Recent Travel: No Home Medications - Allergies Allergies/Adverse Reactions: Allergies Allergy/AdvReac Type Severity Reaction Status Date / Time No Known Allergies Allergy Verified 10/04/17 01:15 - Home Medications Home Medications: Ambulatory Orders Amlodipine Besylate/Benazepril [Lotrel 10-20 mg Capsule] 1 each PO DAILY Atorvastatin Ca [Lipitor] 80 mg PO HS 06/30/17 Hydrochlorothiazide [Hctz -] 12.5 mg PO DAILY 06/30/17 Ceftriaxone [Rocephin -] 2 gm IVPB DAILY #21 vial 10/11/17 Metformin HCl 500 mg PO DAILY #30 tablet 10/11/17 Picc Line Flush [Picc Line Flush -] 8 ml IVPUSH PRN PRN 30 Days ml 10/11/17 levETIRAcetam [Keppra -] 500 mg PO BID #60 tablet 10/11/17 Family Disease History - Family Disease History Family Disease History: Other: Mother (colonic polyps ) Physical Exam Vital Signs: Vital Signs Temperature 97.4 F L 10/04/17 14:00 Pulse Rate 72 10/04/17 14:00 Respiratory Rate 18 10/04/17 10:00 Blood Pressure 125/70 10/04/17 14:00 O2 Sat by Pulse Oximetry (%) 96 10/04/17 09:00 Labs: CBC, BMP 10/04/17 08:11 10/04/17 01:16 Assessment/Plan Primary vs Metastatic brain lesion: CT c/a/p, will follow c/w dex at present doses , PPI ppx Seizure ppx. Neuro./NSG c/s noted CEA unable to see pt
[2017-10-04] MEDS: INSULIN SLIDING SCALE (NOVOLOG) 1 VIAL SQ SCH ×2 (17:44→21:19)
[2017-10-04] MEDS ORDERED: INSULIN (NOVOLOG) ASPART 100 UNITS/ML 10ML VIAL ONE (21:12)
[2017-10-04] MEDS ORDERED: CHLORHEXIDINE GLUCONATE 4% CLEANSER FOR DECOLONIZATION TP SCH (22:00)
[2017-10-04] MEDS ORDERED: ATORVASTATIN CA 80 MG TABLET (FP) PO SCH (22:00)
[2017-10-05] MEDS: DEXAMETHASONE 4 MG TABLET (FP) PO SCH (05:03)
[2017-10-05] MEDS: INSULIN SLIDING SCALE (NOVOLOG) 1 VIAL SQ SCH ×4 (07:03→21:29)
[2017-10-05 07:24] LABS: HEMOGLOBIN 13.3 GM/dL (11.7-16.9); LYMPH % 7.4 % (8-40); MCH 31.3 pg (25.7-33.7); MCHC 35.9 g/dl (32.0-35.9); MEAN CELL VOLUME 87.3 fl (80-96); MONO % 1.1 % (3.8-10.2); NEUT % 91.5 % (42.8-82.8); PLATELET COUNT 235 K/MM3 (134-434); RBC 4.24 M/mm3 (4.00-5.60); RDW 12.8 % (11.9-15.9); WHITE BLOOD COUNT 17.7 K/mm3 (4.0-10.0)
[2017-10-05 07:47] LABS: ANION GAP 7 (8-16); BLOOD UREA NITROGEN 18 mg/dL (7-18); CALCIUM 8.6 mg/dL (8.5-10.1); CHLORIDE 106 mmol/L (98-107); CO2 26 mmol/L (21-32); CREATININE 0.8 mg/dL (0.7-1.3); GLUCOSE,RANDOM 227 mg/dL (74-106); LDH 135 U/L (87-241); MAGNESIUM 2.3 mg/dL (1.8-2.4); PHOSPHOROUS 3.8 mg/dL (2.5-4.9); POTASSIUM 4.3 mmol/L (3.5-5.1); SODIUM 139 mmol/L (136-145); URIC ACID 4.1 mg/dL (2.6-7.2)
--- NOTE | 2017-10-05 08:43 | PN ---
Teaching Attending Note Name of Resident: Luanne Collazo ATTENDING PHYSICIAN STATEMENT I saw and evaluated the patient. I reviewed the resident's note and discussed the case with the resident. I agree with the resident's findings and plan as documented. SUBJECTIVE: Feels better, no events over night , no LUJAN or change in vision. No weakness, numbness or tingling. no seizure recurrence OBJECTIVE: NAD , AAox3 CV: RRR. 2/6 SM at RUSB, and 3/6 SM at apex. Lungs: CTAB Ext: no edema. abrasion on R givens Neuro : EOMI, round equal pupils , reactive to light , uvula and tongue at mid line . NL facial sensation . Strength 5/5 in upper and lower extremities, proximally and distally . sensation to light touch Nl. reflexes 2+ knee jerk, biceps bilaterally . ASSESSMENT AND PLAN: Pleasant 62 y/o gentleman with h/o colon cancer s/p resection and chemo, HTn, HLP, who presented with new onset seizure and was found to have a brain mass. 1- New onset seizure, due to brain mass - cont keppra BID - seizure precautions 2- Brain mass: CT C/A/P with lung mass. Possible brain mets from primary lung cancer or still mets form colon. - For Bx and resection of mass today. follow pathology. - Tissue from brain might be enough for diagnosis. will d/w Onc if lung lass need to be biopsied as well. - Cont Dex pending further Recs form neuro sx 3- New diagnosis of DM. A1c 6.6. - SSI while on steroids - metformin as out pt 4- Leukocytosis : likely form steroids. No evidence of infection. Monitor 5- HTN: cont lisinopril and norvasc. hold HCTZ to avoid CODY. s/p 24 hr hydration. Monitor renal function 6- DVT PX , on hold for surgery. will resume when safe by neuro sx.
[2017-10-05] MEDS ORDERED: PANTOPRAZOLE 40 MG TABLET (FP) PO SCH (10:00)
[2017-10-05] MEDS ORDERED: PANTOPRAZOLE SODIUM 40 MG VIAL IVPUSH SCH (10:00)
[2017-10-05] MEDS ORDERED: PROMETHAZINE HCL 25 MG/1 ML VIAL IVPUSH PRN ×2 (10:18→16:03)
[2017-10-05] MEDS ORDERED: ONDANSETRON 4 MG/2 ML VIAL IVPUSH PRN ×2 (10:18→16:03)
[2017-10-05] MEDS: levETIRAcetam 500 MG TABLET (FP) PO SCH ×2 (10:25→21:20)
[2017-10-05] MEDS: amLODIPine BESYLATE 10 MG TABLET (FP) PO SCH (10:25)
[2017-10-05] MEDS: LISINOPRIL 20 MG TABLET (FP) PO SCH (10:25)
[2017-10-05] MEDS ORDERED: LACTATED RINGERS SOLUTION 1,000 ML IV SCH (10:30)
[2017-10-05] MEDS ORDERED: PROPOFOL 20 ML ONE ×2 (10:31→11:36)
[2017-10-05] MEDS ORDERED: ROCURONIUM BROMIDE 50 MG/5 ML VIAL ONE (10:31)
[2017-10-05] MEDS ORDERED: MIDAZOLAM HCL 2 MG/2 ML SINGLE DOSE VIAL ONE ×2 (10:31→13:20)
[2017-10-05] MEDS ORDERED: LIDOCAINE HCL/PF 2% SDV 5ML VIAL ONE (10:33)
[2017-10-05] MEDS ORDERED: GENTAMICIN SO4 80 MG/2 ML VIAL ONE ×2 (11:08→13:25)
[2017-10-05] MEDS ORDERED: BUPIVACAINE HCL/PF 0.5% (5MG/ML) 10 ML VIAL ONE (11:09)
[2017-10-05] MEDS ORDERED: fentaNYL CITRATE 250 MCG/5 ML VIAL ONE (11:27)
[2017-10-05] MEDS ORDERED: LIDOCAINE 1%/EPI 1:100000 (20 ML MULTI DOSE VIAL) ONE (11:41)
[2017-10-05] MEDS ORDERED: SODIUM CHLORIDE 0.9% P/F 10 ML VIAL IJ ONE ×2 (11:42→11:47)
[2017-10-05] MEDS ORDERED: ceFAZolin SODIUM 1 GM VIAL ONE (11:42)
[2017-10-05] MEDS ORDERED: ceFAZolin SODIUM 1 GM VIAL IVPB ONE (11:43)
[2017-10-05] MEDS ORDERED: VANCOMYCIN 1,000 MG VIAL (RESTRICTED TO ID ONLY) ONE ×2 (11:47→13:25)
[2017-10-05] MEDS ORDERED: DEXAMETHASONE SOD PHOSPHATE 4 MG/1 ML VIAL ONE ×2 (11:48→13:33)
[2017-10-05] MEDS ORDERED: VANCOMYCIN 1,000 MG VIAL (RESTRICTED TO ID ONLY) IVPB ONE (11:48)
[2017-10-05] MEDS ORDERED: ONDANSETRON 4 MG/2 ML VIAL ONE ×2 (11:48→13:33)
[2017-10-05] MEDS ORDERED: BACITRACIN 15 GM TUBE TOPICAL OINTMENT ONE (11:52)
[2017-10-05] MEDS ORDERED: BACITRACIN 15 GM TUBE TOPICAL OINTMENT TP ONE (11:57)
[2017-10-05] MEDS ORDERED: LIDOCAINE 1%/EPI 1:100000 (20 ML MULTI DOSE VIAL) IJ ONE (12:16)
[2017-10-05] MEDS ORDERED: DESFLURANE GAS 240 ML BOTTLE IH ONE (13:08)
--- NOTE | 2017-10-05 13:32 | MSN ---
Progress Note (SOAP) - Subjective Chief Complaint: Seizure and left sided brain lesion History of Present Illness: Patient reports feeling well today. The patient is only complaining of continued mild right lower limb numbness and weakness that is unchanged from previous days. The patient is not having any new onset focal nuero findings and does not report any trouble walking, talking, swallowing or seeing. ROS is negative for any fevers, chills, n/v, headache, chest, pain, SOB, abdominal pain , or diarrhea. - Current Medications Current Medications: Active Medications Amlodipine Besylate (Norvasc -) 10 mg PO DAILY [facility] Last Admin: 10/05/17 10:25 Dose: Not Given Atorvastatin Calcium (Lipitor -) 80 mg PO [facility] Last Admin: 10/04/17 21:16 Dose: 80 mg Chlorhexidine Gluconate (Hibiclens For Decolonization -) 1 applic TP [facility] Last Admin: 10/05/17 06:27 Dose: 1 applic Dexamethasone (Decadron -) 4 mg PO Q6HPO [facility] Last Admin: 10/05/17 05:03 Dose: Not Given Fentanyl (Sublimaze Injection -) 50 mcg IVPUSH [id number] PRN PRN Reason: PAIN-PACU ORDER X 4 DOSES ONLY Lactated Ringer's (Lactated Ringers Solution) 1,000 mls @ 125 mls/hr IV ASDIR [facility] Insulin Aspart (Novolog Vial Sliding Scale -) 1 vial SQ ACHS [facility] PRN Reason: Protocol Last Admin: 10/05/17 12:04 Dose: Not Given Levetiracetam (Keppra -) 500 mg PO BID [facility] Last Admin: 10/05/17 10:25 Dose: Not Given Lisinopril (Prinivil) 40 mg PO DAILY [facility] Last Admin: 10/05/17 10:25 Dose: Not Given Ondansetron HCl (Zofran Injection) 4 mg IVPUSH Q6H PRN PRN Reason: NAUSEA AND/OR VOMITING Pantoprazole Sodium (Protonix -) 40 mg PO DAILY [facility] Last Admin: 10/05/17 10:26 Dose: Not Given Promethazine HCl (Phenergan Injection -) 12.5 mg IVPUSH Q6H PRN PRN Reason: NAUSEA-FOR RESCUE AFTER 15 MIN - Objective Vital Signs: Vital Signs Temperature 97.5 F L 10/05/17 06:00 Pulse Rate 60 10/05/17 06:00 Respiratory Rate 18 10/05/17 09:00 Blood Pressure 114/65 10/05/17 06:00 O2 Sat by Pulse Oximetry (%) 97 10/05/17 09:00 Constitutional: Yes: Well Nourished, No Distress, Calm Eyes: Yes: Conjunctiva Clear, EOM Intact, Other (pupils round but not reactive to light ). No: Sclera Icterus HENT: Yes: Atraumatic, Normocephalic. No: Pharyngeal Erythema, Thrush Neck: Yes: Supple, Trachea Midline Cardiovascular: Yes: Regular Rate and Rhythm, Other (3/6 holosystolic murmur best heard at the apex ) Respiratory: Yes: Regular, CTA Bilaterally. No: Rales, Rhonchi, Wheezes Gastrointestinal: Yes: Normal Bowel Sounds. No: Palpable Mass, Tenderness, Vomiting Musculoskeletal: No: Muscle Weakness Extremities: Yes: WNL Peripheral Pulses WNL: Yes Peripheral Pulses: Left Doralis Pedis: 2+, Right Dorsalis Pedis: 2+ Edema: No Neurological: Yes: Alert, Oriented, Cran Nerves II-XII Intact, Numbness (RLE), Weakness (RLE). No: Aphasia, Ataxia, Dysarthria, Facial Droop ...Motor Strength: Yes: WNL Psychiatric: Yes: Alert, Oriented Labs Lab Results: CBC, BMP 10/05/17 06:30 10/05/17 06:30 Problem List - Problems (1) Mass of brain Code(s): G93.9 - DISORDER OF BRAIN, UNSPECIFIED (2) Seizure Code(s): R56.9 - UNSPECIFIED CONVULSIONS Assessment/Plan Assessment/Plan: Patient is a 62 year old male with past medical hx of HTN, HLD , and previously resected colon cancer (1994) that was admitted for new onset seizure and found to have a left parietal lobe lesion. 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 Hoover today - will f/up on pathology report for a better understand of the lesion's origin # New onset Seizures - will continue keppra 500mg Po Bid - continue decadron 4mg PO q6 - will obtain recommendation from dee dee on when to stop steroid treatment post operatively - Patient started on PPI px # Left lower lobe lesion - CT showed left lower lobe peripheral mass - Pulmonary consult has been placed to Dr. Montero - pathology from brain lesion may confirm malignancy of lung, sparing a lung biopsy # HTN - continue to hold HCTZ 12.5 mg PO because of the possibility of continued contrast damage to the kidney if started now - continue amlodipine 10mg and Lisinopril 40 mg # Diabetes - continue ISS #Leukocytosis - elevated at 17.7 - likely secondary to steroid use, will continue to trend DVT - Currently on SCDs. Contacted surgery. Awaiting recommendation on when lovenox can be started post operatively. F/E/N - L/R 125 mls/hr - Electrolytes WNL - will continue low sodium diet Dispo: - Will be monitored post operatively in the ER
[2017-10-05] MEDS ORDERED: GLYCOPYRROLATE 0.2 MG/1 ML VIAL ONE (13:40)
[2017-10-05] MEDS ORDERED: NEOSTIGMINE METHYLSULFATE 0.5 MG/ML - 10 ML MDV ONE (13:41)
[2017-10-05] MEDS ORDERED: BUPIVACAINE HCL/PF (5 MG/ML) 30 ML VIAL IJ ONE (13:56)
[2017-10-05] MEDS ORDERED: LABETALOL HCL 5 MG/1 ML (100MG/20 ML VIAL) IVPUSH PRN (15:01)
[2017-10-05] MEDS ORDERED: oxyCODONE HCL 5 MG TABLET PO PRN ×2 (15:15)
[2017-10-05] MEDS ORDERED: VANCOMYCIN 1,000 MG in DEXTROSE 5%-WATER - 250 ML IVPB ONE (15:52)
[2017-10-05] MEDS ORDERED: PIPERACILLIN/TAZOB 3.375 GM 3.375 GM in DEXTROSE 5%-WATER - 50 ML IVPB ONE (15:53)
[2017-10-05] MEDS ORDERED: SODIUM CHLORIDE 1,000 ML IV SCH (16:00)
--- NOTE | 2017-10-05 16:11 | HOSP ---
Subjective - Review of Symptoms Events since last encounter: brain abscess is highly suspected per Dr. Antoine depending on appearance and frozen section results. - abscess drainage and Gs+cx/fungal cx /AFB sent - will send blood cx - will give 1 g of flagyl , 2 g of ceftriaxone and 1 g of vanco pendinf ID Recs - will d/w ID - dc dex, dw Dr. Antoine - cont keppra for now . - will d/w pulm , as Lung mass Bx might be needed. - Monitor in ICU Physical Examination Vital Signs: Labs: CBC, BMP 10/05/17 06:30 10/05/17 06:30
--- NOTE | 2017-10-05 16:18 | PN ---
Teaching Attending Note Name of Resident: Shelby Van ATTENDING PHYSICIAN STATEMENT I saw and evaluated the patient. I reviewed the resident's note and discussed the case with the resident. I agree with the resident's findings and plan as documented. SUBJECTIVE: Pt seen and examined in the ICU. Briefly, 62yo male with h/o HTN, hyperlipidemia , colon ca s/p resection and normal recent colonoscopy who was admitted for generalized weakness, right leg numbness and facial droop. Experienced a witnessed seizure in the ER, found to have a left sided brain mass. Also noted to have a 1.6cm LLL peripheral nodule. Went to the OR today for craniotomy, found to have purulent material at the site of the brain mass. Seen post op, denies any current complaints. No headache, nausea or vomiting. No fevers, chills or sweats. OBJECTIVE: Last Vital Signs Temp Pulse Resp BP Pulse Ox 97.7 F 58 L 15 126/65 95 10/05/17 15:58 10/05/17 15:58 10/05/17 15:58 10/05/17 15:58 10/05/17 16:00 Intake & Output 10/02/17 10/03/17 10/04/17 10/05/17 23:59 23:59 23:59 23:59 Intake Total 560 2400 Output Total 1000 500 Balance -440 1900 Weight 89.358 kg Gen: NAD at rest Heart: RRR, +systolic murmur Lung: decreased breath sounds at the bases Abd: soft, nontender Ext: no edema Neuro: nonfocal CBC, BMP 10/05/17 06:30 10/05/17 06:30 Active Medications Chlorhexidine Gluconate (Hibiclens For Decolonization -) 1 applic TP HS [facility] Fentanyl (Sublimaze Injection -) 50 mcg IVPUSH [id number] PRN PRN Reason: PAIN-PACU ORDER X 4 DOSES ONLY Heparin Sodium (Porcine) (Heparin -) 5,000 unit SQ Q8H-IV [facility] Lactated Ringer's (Lactated Ringers Solution) 1,000 ml in 1,000 mls @ 100 mls/ hr IV ASDIR [facility] Cefazolin Sodium 1 gm/ (Dextrose) 50 mls @ 200 mls/hr IVPB Q8H-IV [facility] Vancomycin HCl 1,000 mg/ (Dextrose) 250 mls @ 166.667 mls/hr IVPB ONCE ONE PRN Reason: Protocol Stop: 10/05/17 17:21 Ceftriaxone Sodium 2 mg/ (Dextrose) 50 mls @ 100 mls/hr IVPB ONCE ONE Stop: 10/05/17 16:27 Metronidazole (Flagyl 500mg Premixed Ivpb -) 500 mg in 100 mls @ 100 mls/hr IVPB ONCE ONE Stop: 10/05/17 16:55 Sodium Chloride (Normal Saline -) 1,000 mls @ 83 mls/hr IV ASDIR [facility] Insulin Aspart (Novolog Vial Sliding Scale -) 1 vial SQ ACHS [facility] PRN Reason: Protocol Labetalol HCl (Normodyne Injection -) 10 mg IVPUSH [id number] PRN PRN Reason: HYPERTENSION Levetiracetam (Keppra -) 500 mg PO BID [facility] Mupirocin (Bactroban Ointment (For Decolonization) -) 1 applic NS BID [facility] Stop: 10/10/17 21:59 Oxycodone HCl (Roxicodone -) 5 mg PO Q4H PRN PRN Reason: PAIN LEVEL 1-5 Oxycodone HCl (Roxicodone -) 10 mg PO Q4H PRN PRN Reason: PAIN LEVEL 6-10 Pantoprazole Sodium (Protonix -) 40 mg PO DAILY [facility] ASSESSMENT AND PLAN: Seizure Brain Mass/Abscess Lung Nodule h/o Colon Ca HTN Hyperlipidemia - ID eval for antibiotics - f/u OR cultures - echocardiogram to investigate heart murmur - antiepileptics - IVF - pain control - incentive spirometry - will need CT guided needle biopsy for lung nodule - DVT prophylaxis
--- NOTE | 2017-10-05 16:37 | CONSULT ---
Consultation: ICU Consult HPI: 62yo with PMHx of CRC (s/p resection in 1994) who was originally brought to ER for new onset seizure. He was playing soccer when he started to feel "different ", told he had a seizure. Later experienced RLE numbness that extended into R torso. He had a number of witnessed focal R sided seizures and a jacksonisn march in the ER. Denied fevers, chills, prior headaches, IVDA, unusual sexual activity, bug bites. Is from [facility] and last visited 2 years ago. MRI shows 2cm L sided ring enhancing lesion. CT Chest shows incidental LLL peripheral mass. Pt is never smoker. During the hospital course, he was given IV abx, decadron, and hemara Dr Bryan operated this afternoon, found to have a brain abscess. ROS: CONSTITUTIONAL: Absent: fever, chills, diaphoresis, generalized weakness, malaise, loss of appetite, weight change HEENT: Absent: rhinorrhea, nasal congestion, throat pain, throat swelling, difficulty swallowing, mouth swelling, ear pain, eye pain, visual changes CARDIOVASCULAR: Absent: chest pain, syncope, palpitations, irregular heart rate , lightheadedness, peripheral edema RESPIRATORY: Absent: cough, shortness of breath, dyspnea with exertion, orthopnea, wheezing, stridor, hemoptysis GASTROINTESTINAL:Absent: abdominal pain, abdominal distension, nausea, vomiting , diarrhea, constipation, melena, hematochezia GENITOURINARY: Absent: dysuria, frequency, urgency, hesitancy, hematuria, flank pain, genital pain MUSCULOSKELETAL: Absent: myalgia, arthralgia, joint swelling, back pain, neck pain SKIN: Absent: rash, itching, pallor HEMATOLOGIC/IMMUNOLOGIC:Absent: easy bleeding, easy bruising, lymphadenopathy, frequent infections ENDOCRINE:Absent: unexplained weight gain, unexplained weight loss, heat intolerance, cold intolerance NEUROLOGIC: Absent: headache, focal weakness or paresthesias, dizziness, unsteady gait, seizure, mental status changes, PSYCHIATRIC: Absent: anxiety, depression, suicidal or homicidal ideation, hallucinations. PE: Vital Signs Period Temp Pulse Resp BP Sys/Gardiner Pulse Ox Last 24 Hr 97.5 F-98.2 F 58-87 15-18 108-143/55-87 95-97 GEN: AAOx3, NAD, Lying comfortably, head wrapped HEENT: PERRLA, EOMi, no dental pain CV: S1, S2, RRR, 3/6 systolic murmur (known) LUNG: CTABL ABD: Soft, NT, ND, normoactive BS MSK: No edema, no erythema, no janeway/splinter lesions NEURO: Full neuro exam performed. CN 2-12 intact, no msk or sensation deficits A/P: 62yo with PMHx of CRC (s/p resection in 1994) who was originally brought to ER for new onset seizure and weakness # Focal Brain Abscess -- Unknown cause randal. Sources include oral vs hematologic spread. POD#0 from evacuation. Symptoms improved. No new seizures. Echo to r/o infectious source in light of murmur. Continue Vanc/Zosyn. Follow cultures. Pain control w/ percocet. Elevate HOB. Neuro checks. # Focal Seizure -- Likely from brain abscess. Keppra 500 bid for sz prophylaxis. # LLL peripheral lung lesion -- No smoking hx. Would likely need CT guided needle biopsy # HTN -- Labetalol 10mg PRN # New onset DM2 -- Continue ISS and BGM achs # Hx of CRC -- Has followed up, recent normal colonoscopy. Stable # FEN/Ppx -- LR @100cc/hr, clear diet, HSQ tid # Dispo -- Continue ICU mgmt. We will continue to follow the patient. Thank you for this consultative opportunity. Shelby Van MD PGY1 Evening ICU Resident Visit type - Emergency Visit Emergency Visit: No - New Patient This patient is new to me today: Yes Date on this admission: 10/05/17 - Critical Care Critical Care patient: Yes Total Critical Care Time (in minutes): 50 Critical Care Statement: The care of this patient involved high complexity decision making to prevent further life threatening deterioration of the patient 's condition and/or to evaluate & treat vital organ system(s) failure or risk of failure.
[2017-10-05] MEDS ORDERED: CEFTRIAXONE 2 GM in DEXTROSE 5%-WATER 100 ML IVPB ONE (16:45)
[2017-10-05] MEDS ORDERED: LACTATED RINGERS SOLUTION 1,000 ML/1,000 ML INFUS.BAG IV SCH (16:45)
--- NOTE | 2017-10-05 16:50 | OP ---
Operative Note - Note: Operative Date: 10/05/17 Pre-Operative Diagnosis: Parietal lobe lesion abscess vs tumor with remote history of Colon CA Operation: Craniotomy with Parietal Lobe evacuation of intracranial abscess Post-Operative Diagnosis: Same as Pre-op Surgeon: Carlos Bryan Crushing Foreman: Stephani Pereyra Anesthesiologist/COMMERCIAL FRONT LOAD OPERATOR: Mao Delgadillo Anesthesia: General Specimens Removed: intracranial abscess Estimated Blood Loss (mls): 100 Drains, Volume Out (mls): 400 (Campos) Fluid Volume Replaced (mls): 1,200 Operative Report Dictated: Yes
--- NOTE | 2017-10-05 16:51 | SURG ---
Surgery Supply Chain Manager Note Supply Chain Manager: Stephani Pereyra PA-C Date of Service: 10/05/17 Diagnosis: parietal lobe lesion abscess vs tumor with remote history of colon Cancer Procedure: Craniotomy with Parietal Lobe evacuation of intracranial abscess I was present for the entirety of the operative procedure. For further detail, please refer to operative report. Visit type - Case Type Case Type: ED Admission - Emergency Emergency Visit: Yes ED Registration Date: 10/04/17 Care time: The patient presented to the Emergency Department on the above date and was hospitalized for further evaluation of their emergent condition. - New patient This patient is new to me today: Yes Date on this admission: 10/05/17
--- NOTE | 2017-10-05 17:04 | CON.ID ---
Consult Consult Specialty:: infectious diseases Reason for Consultation:: brain abscess - History of Present Illness History of Present Illness: 62 year old man with past med hx of HTN, HLD, and colon cancer status post colon resection in 1994 who was admitted after a seizure episode . 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 patient came to the er left and then came back again because his numbness of the rt side had become worseand he felt a lot of pressure in his head. His symptoms progressed into convulsion of the entire right side of his body and face. The patient was standing at the time of the event but states he stayed on his feet without falling. The patient denies any loss of consciousness , urinary incontinence, loss of bowels, biting of his oral mucosa, or post- ictal symptoms. The patient was again brought to the ER where he had a second seizure that he described as having the same symtomatology as the first seizure. The patient was given decadron, started on keppra in the ER and a CT was obtained showing left temporal lobe lesion and edema. patient was then seem by neurosurgery and taken to the operating room. patient underwent surgery and what was found was abscess in the brain.which was removed in toto and patient was transferred to icu post op for monitoring patient currently post op doing well no complaints with dressing on the head all the cx have been send denies any issues - History Source History Provided By: Patient, Medical Record Limitations to Obtaining History: No Limitations - Past Medical History Cardio/Vascular: Yes: HTN, Hyperlipdemia Gastrointestinal: Yes: Cancer (colon cancer in 1994) - Past Surgical History Past Surgical History: Yes: Colectomy (colon cancer resection in 1994) - Alcohol/Substance Use Hx Alcohol Use: No - Smoking History Smoking history: Never smoked Have you smoked in the past 12 months: No - Social History ADL: Independent History of Recent Travel: No Home Medications - Allergies Allergies/Adverse Reactions: Allergies Allergy/AdvReac Type Severity Reaction Status Date / Time No Known Allergies Allergy Verified 10/04/17 01:15 - Home Medications Home Medications: Ambulatory Orders Amlodipine Besylate/Benazepril [Lotrel 10-20 mg Capsule] 1 each PO DAILY Atorvastatin Ca [Lipitor] 80 mg PO HS 02/09/18 Hydrochlorothiazide [Hctz -] 12.5 mg PO DAILY 06/30/17 Family Disease History - Family Disease History Family Disease History: Other: Mother (colonic polyps ) Review of Systems - Review of Systems Constitutional: reports: No Symptoms Eyes: reports: No Symptoms HENT: reports: No Symptoms Neck: reports: No Symptoms Cardiovascular: reports: No Symptoms Respiratory: reports: No Symptoms Gastrointestinal: reports: No Symptoms Genitourinary: reports: No Symptoms Breasts: reports: No Symptoms Reported Musculoskeletal: reports: Other Integumentary: reports: No Symptoms Neurological: reports: Seizure, Other (rt sided numbness) Endocrine: reports: No Symptoms Hematology/Lymphatic: reports: No Symptoms Psychiatric: reports: No Symptoms Physical Exam Vital Signs: Vital Signs Temperature 97.7 F 10/05/17 15:58 Pulse Rate 58 L 10/05/17 15:58 Respiratory Rate 15 10/05/17 15:58 Blood Pressure 126/65 10/05/17 15:58 O2 Sat by Pulse Oximetry (%) 95 10/05/17 16:00 Constitutional: Yes: Well Nourished, No Distress, Calm Eyes: Yes: Conjunctiva Clear Cardiovascular: Yes: Regular Rate and Rhythm Respiratory: Yes: Regular, CTA Bilaterally Gastrointestinal: Yes: Normal Bowel Sounds, Soft Musculoskeletal: Yes: WNL Extremities: Yes: WNL Wound/Incision: Yes: Dressing Dry and Intact Neurological: Yes: Alert, Oriented Psychiatric: Yes: Alert, Oriented Labs: CBC, BMP 10/05/17 06:30 10/05/17 06:30 Imaging - Results Chest X-ray: Report Reviewed, Image Reviewed X-ray: Report Reviewed, Image Reviewed Cat Scan: Report Reviewed, Image Reviewed MRI: Report Reviewed, Image Reviewed Assessment/Plan Seizure Brain Mass/Abscess Lung Nodule h/o Colon Ca HTN Hyperlipidemia plan will have to figure out the cause of brain abscess consider key biopsy ot the lung nodule await for all cx reports continue abx as per icu close monitoring for further seizures monitor for fevers cc time 45 min
--- NOTE | 2017-10-05 17:37 | PN ---
Physical Exam: SUBJECTIVE: Patient seen and examined at bedside. No acute events overnight, in PM pt received 4 units as BG 229. This AM, received 2U with BG in 250's. Underwent parietal lobe evacuation today with Dr. Hinkle. After procedure, family at bedside. Denied LUJAN, fever, chills, SOB, chest pain or pressure, or changes in urinary or bowel function, without new focal neurological deficits. OBJECTIVE: Vital Signs Period Temp Pulse Resp BP Sys/Gardiner Pulse Ox Last 24 Hr 97.5 F-98.2 F 58-79 15-18 108-143/55-87 95-97 GENERAL: The patient is resting comfortably in bed. awake, alert, and fully oriented, in no acute distress. HEAD: Normal with no signs of trauma. EYES: PERRL, extraocular movements intact, sclera anicteric, conjunctiva clear. No ptosis. ENT: Ears normal, nares patent, oropharynx clear without exudates, moist mucous membranes. NECK: Trachea midline, supple. LUNGS: Breath sounds equal, clear to auscultation bilaterally, no wheezes, no crackles, no accessory muscle use. HEART: Regular rate and rhythm, S1, S2 without murmur, rub or gallop. + systolic murmur at apex ABDOMEN: Soft, nontender, nondistended, normoactive bowel sounds, no guarding, no rebound, no hepatosplenomegaly EXTREMITIES: 2+ dp pulses, warm, well-perfused, no edema. +RLE decreased sensation. motor strength 4/5 in upper and lower extremities NEUROLOGICAL: Cranial nerves II through XII grossly intact. PSYCH: Normal mood, normal affect. SKIN: Warm, dry, normal turgor Laboratory Results - last 24 hr 10/04/17 10/04/17 10/05/17 17:42 21:15 06:22 Anion Gap POC Glucometer 229 305 252 Random Glucose Phosphorus 10/05/17 10/05/17 10/05/17 06:30 06:30 14:44 WBC 17.7 H D RBC 4.24 Hgb 13.3 Hct 37.0 MCV 87.3 MCH 31.3 MCHC 35.9 RDW 12.8 Plt Count 235 MPV 11.0 Neutrophils % 91.5 H Lymphocytes % 7.4 L D Monocytes % 1.1 L Eosinophils % 0.0 Basophils % 0.0 Sodium 139 Potassium 4.3 Chloride 106 Carbon Dioxide 26 Anion Gap 7 L BUN 18 D Creatinine 0.8 POC Glucometer 257 Random Glucose 227 H D Uric Acid 4.1 Calcium 8.6 Phosphorus 3.8 Magnesium 2.3 LD Total 135 Active Medications Generic Name Dose Route Start Last Admin Trade Name Freq PRN Reason Stop Dose Admin Chlorhexidine Gluconate 1 applic 10/05/17 22:00 Hibiclens For Decolonization - TP HS [facility] Fentanyl 50 mcg 10/05/17 16:35 Sublimaze Injection - IVPUSH [id number] PRN PAIN-PACU ORDER X 4 DOSES ONLY Heparin Sodium (Porcine) 5,000 unit 10/05/17 22:00 Heparin - SQ TID [facility] Lactated Ringer's 1,000 ml in 1,000 mls @ 100 mls/hr 10/05/17 16:45 Lactated Ringers Solution IV ASDIR [facility] Ceftriaxone Sodium 2 gm/ 100 mls @ 100 mls/hr 10/05/17 16:45 Dextrose IVPB 10/05/17 17:44 ONCE ONE Metronidazole 500 mg in 100 mls @ 100 mls/hr 10/05/17 16:45 Flagyl 500mg Premixed Ivpb - IVPB 10/05/17 17:44 ONCE ONE Vancomycin HCl 1,250 mg/ 250 mls @ 250 mls/2 hr 10/06/17 12:00 Dextrose IVPB DAILY@1200 [facility] Protocol Piperacillin Sod/Tazobactam 50 mls @ 100 mls/hr 10/05/17 18:00 Sod 3.375 gm/ Dextrose IVPB Q8H-IV [facility] Protocol Insulin Aspart 1 vial 10/05/17 16:30 Novolog Vial Sliding Scale - SQ ACHS [facility] Protocol Labetalol HCl 10 mg 10/05/17 15:01 Normodyne Injection - IVPUSH [id number] PRN HYPERTENSION Levetiracetam 500 mg 10/05/17 22:00 Keppra - PO BID [facility] Mupirocin 1 applic 10/05/17 22:00 Bactroban Ointment (For Decolonization) - NS 10/10/17 21:59 BID [facility] Oxycodone HCl 5 mg 10/05/17 15:15 Roxicodone - PO Q4H PRN PAIN LEVEL 1-5 Oxycodone HCl 10 mg 10/05/17 15:15 Roxicodone - PO Q4H PRN PAIN LEVEL 6-10 Pantoprazole Sodium 40 mg 10/06/17 10:00 Protonix - PO DAILY [facility] 10/04/17: CXR: shallow inspiration. No evidence of widening of superior mediastinum. The heart is borderline enlarged. Normal contous of the thoracic aorta. Normal aeration of the right lung. The right diaphragm is slightly elevated. No pneumothorax, or large pleural effusion is seen. No evidence of CHF. 10/04/17: Head CT without contrast: vasogenic edema of the left posterior frontal /parietal high convexity with questionable poorly visualized lesion measuring 1.7cm for which correlation with contrast-enhanced MRI of the brain recommended 10/04/17: Abd/pelvis CT: peripheral LLL mass, can't exclude malignancy. need core biopsy, PET/CT. no pathology noted in chest, abdomen, pelvis. 10/05/17: Brain MRI: 2cm L posterior parietal sorto matter mass lesion- high signal intensity T1, infectious or metastatic with perifocal edema. Microbiology 10/05/17 13:14 Head Gram Stain - Final 10/05/17: abscess: AFB, mycobacterial cx, ZULY, fungal cx - pending 10/05/17: blood cx - pending ASSESSMENT/PLAN: 62 y/o M with PMH HTN, HLD, hx colon CA (resected 1994), BIBEMS for new onset seizure. Pt found to have 3.4x2.2cm edema in L parietal lobe likely vasogenic 2/ 2 underlying 1.7cm mass. 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 Duncan -Neurosurgery- Dr. Hinkle -ID- Dr. Balderrama -Dexamethasone 4mg PO q6h - has been d/c -continue neurochecks q4h -incentive spirometry -pain control- roxicodone 5mg q4 PRN, with 10mg q4 PRN for higher intensity #peripheral LLL mass -will likely need bx to determine whether from brain lesion, or unrelated -pulm consult- will be seen by Dr. Mejía in ICU #New onset seizure, likely 2/2 parietal lobe mass -Keppra 500mg PO BID for sz prophylaxis -seizure precautions, padding #Hx colon CA (resected 1994) -Pathology report from past colonoscopy- pending, primary has been contacted -Heme-onc consult - Dr. Smith -F/u CEA- pending #HTN-currently controlled -Continue lisinopril 40 mg PO qd -amlodipine 10mg PO qd -will continue to hold HCTZ 12.5 mg PO qd #New DM -may be exacerbated by steroids -A1c 6.6 -ISS ACHS -BGM -will likely start on metformin as outpt if renal fnc, GFR permits #HLD -Continue lipitor 80 mg PO qHS #F/E/N -LR 100 cc/hr -continue to follow lytes -clear liquid diet #PPX -Hep 5000 SQ TID has been restarted -GI: protonix 40mg PO qd #Dispo -Continued ICU monitoring, post-op Visit type - Emergency Visit Emergency Visit: No - New Patient This patient is new to me today: No - Critical Care Critical Care patient: No
[2017-10-05] MEDS: PIPERACILLIN/TAZOB 3.375 GM 3.375 GM in DEXTROSE 5%-WATER - 50 ML IVPB SCH (18:00)
[2017-10-05] MEDS ORDERED: DEXAMETHASONE 4 MG TABLET (FP) PO SCH (18:00)
[2017-10-05] MEDS ORDERED: DEXTROSE 5%-WATER - 50 ML IVPB ONE (19:04)
[2017-10-05] MEDS ORDERED: PIPERACILLIN/TAZOBACTAM 3.375 GM VIAL IVPB ONE (19:04)
[2017-10-05] MEDS ORDERED: DEXTROSE 5%-WATER 100 ML IVPB ONE (19:05)
[2017-10-05] MEDS ORDERED: CEFAZOLIN 1 GM in DEXTROSE 5%-WATER - 50 ML IVPB SCH (19:30)
[2017-10-05] MEDS ORDERED: PT OWN MED DRAWER 7, Y5N ONE (21:13)
[2017-10-05] MEDS: MUPIROCIN 2% TOPICAL OINTMENT FOR DECOLONIZATION NS SCH (21:18)
[2017-10-05] MEDS: HEPARIN NA (PORCINE) 5,000 UNITS/ML 1ML VIAL SQ SCH (21:19)
[2017-10-05] MEDS: CHLORHEXIDINE GLUCONATE 4% CLEANSER FOR DECOLONIZATION TP SCH (21:19)
[2017-10-05] MEDS ORDERED: ATORVASTATIN CA 80 MG TABLET (FP) PO SCH (22:00)
[2017-10-05] MEDS ORDERED: CHLORHEXIDINE GLUCONATE 4% CLEANSER FOR DECOLONIZATION TP SCH (22:00)
[2017-10-06] MEDS ORDERED: PIPERACILLIN/TAZOBACTAM 3.375 GM VIAL IVPB ONE ×3 (02:33→17:23)
[2017-10-06] MEDS ORDERED: DEXTROSE 5%-WATER - 50 ML IVPB ONE ×3 (02:33→17:23)
[2017-10-06] MEDS: PIPERACILLIN/TAZOB 3.375 GM 3.375 GM in DEXTROSE 5%-WATER - 50 ML IVPB SCH ×3 (02:35→17:26)
[2017-10-06 06:35] LABS: HEMATOCRIT 33.7 % (35.4-49); LYMPH % 7.3 % (8-40); MCH 31.4 pg (25.7-33.7); MCHC 35.7 g/dl (32.0-35.9); MEAN PLT VOLUME 11.2 fl (7.5-11.1); MONO % 5.6 % (3.8-10.2); NEUT % 87.1 % (42.8-82.8); PLATELET COUNT 214 K/MM3 (134-434); RBC 3.83 M/mm3 (4.00-5.60); RDW 12.6 % (11.9-15.9); WHITE BLOOD COUNT 15.7 K/mm3 (4.0-10.0)
[2017-10-06] MEDS: HEPARIN NA (PORCINE) 5,000 UNITS/ML 1ML VIAL SQ SCH ×3 (06:46→21:27)
[2017-10-06] MEDS: INSULIN SLIDING SCALE (NOVOLOG) 1 VIAL SQ SCH ×4 (06:47→21:28)
[2017-10-06 08:42] LABS: ANION GAP 7 (8-16); BLOOD UREA NITROGEN 18 mg/dL (7-18); CALCIUM 8.5 mg/dL (8.5-10.1); CHLORIDE 105 mmol/L (98-107); CO2 27 mmol/L (21-32); CREATININE 0.8 mg/dL (0.7-1.3); GLUCOSE,RANDOM 179 mg/dL (74-106); POTASSIUM 4.3 mmol/L (3.5-5.1); SODIUM 139 mmol/L (136-145)
--- NOTE | 2017-10-06 08:47 | PN ---
Progress Note (short form) - Note Progress Note: POD #1 Alert. doing well. Seated in bed. Tolerating PO diet. MRI s/p operative procedure identified irregular peripheral enhancement of surgical bed along medial and inferior margin. Can't r/o residual tumor. Denies n/v/f/c, LUJAN, CP or SOB. Last Vital Signs Temp Pulse Resp BP Pulse Ox 97.4 F L 57 L 14 111/63 95 10/06/17 06:00 10/06/17 06:00 10/06/17 06:00 10/06/17 06:00 10/05/17 20:11 CBC, BMP 18 05:30 10/06/17 05:30 Gen: nad Head: Dressing c/d/i. Neuro: GMNVI LE: SCDs bilat. Soft. NT bilat Problem List - Problems (1) Mass of brain Assessment/Plan: POD #1 s/p Craniotomy, Left parietal lobe evacuation of intracranial abscess ( liquefactive necrosis from CA/tumor vs. infectious) f/u pathology f/u blood cultures Pain management Keep SBP < 130 Keppra 500mg BID SCDs for DVT ppx Dr. العراقي/ID --> Daisha Duncan/Neurology following Incentive spirometer Tight glycemic control Downgrade to floor --> 8W Above plan discussed with Dr. Bryan and agrees Code(s): G93.9 - DISORDER OF BRAIN, UNSPECIFIED (2) Seizure Code(s): R56.9 - UNSPECIFIED CONVULSIONS
[2017-10-06] MEDS: PANTOPRAZOLE 40 MG TABLET (FP) PO SCH (09:26)
[2017-10-06] MEDS: levETIRAcetam 500 MG TABLET (FP) PO SCH ×2 (09:26→21:27)
[2017-10-06] MEDS: MUPIROCIN 2% TOPICAL OINTMENT FOR DECOLONIZATION NS SCH ×2 (09:26→21:28)
--- NOTE | 2017-10-06 09:45 | PN ---
Progress Note (short form) - Note Progress Note: Anesthesia postop note 62 y/o M s/p GA for craniotomy for brain lesion POD#1, in ICU, vss, alert and awake, no complaints. No anesthesia complications.
[2017-10-06] MEDS ORDERED: LISINOPRIL 20 MG TABLET (FP) PO SCH (10:00)
[2017-10-06] MEDS ORDERED: amLODIPine BESYLATE 10 MG TABLET (FP) PO SCH (10:00)
[2017-10-06] MEDS ORDERED: PT OWN MED DRAWER 7, Y5N ONE (11:39)
--- NOTE | 2017-10-06 11:41 | PN ---
Teaching Attending Note Name of Resident: Aleshia Bauman ATTENDING PHYSICIAN STATEMENT I saw and evaluated the patient. I reviewed the resident's note and discussed the case with the resident. I agree with the resident's findings and plan as documented. SUBJECTIVE: Patient seen and examined in the ICU. Awake and alert. No LUJAN, dizziness, or BOV. 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 MRI noted. OBJECTIVE: Intake & Output 10/03/17 10/04/17 10/05/17 10/06/17 23:59 23:59 23:59 23:59 Intake Total 560 3353 950 Output Total 1000 900 400 Balance -440 2453 550 Weight 197 lb Last Vital Signs Temp Pulse Resp BP Pulse Ox 97.9 F 62 19 135/68 95 10/06/17 08:00 10/06/17 10:00 10/06/17 10:00 10/06/17 10:00 10/06/17 09:00 Active Medications Chlorhexidine Gluconate (Hibiclens For Decolonization -) 1 applic TP HS [facility] Last Admin: 10/05/17 21:19 Dose: 1 applic Fentanyl (Sublimaze Injection -) 50 mcg IVPUSH [id number] PRN PRN Reason: PAIN-PACU ORDER X 4 DOSES ONLY Heparin Sodium (Porcine) (Heparin -) 5,000 unit SQ TID [facility] Last Admin: 10/06/17 06:46 Dose: 5,000 unit Vancomycin HCl 1,250 mg/ (Dextrose) 250 mls @ 250 mls/2 hr IVPB DAILY@1200 [facility] PRN Reason: Protocol Piperacillin Sod/Tazobactam (Sod 3.375 gm/ Dextrose) 50 mls @ 100 mls/hr IVPB Q8H-IV [facility] PRN Reason: Protocol Last Admin: 10/06/17 09:25 Dose: 100 mls/hr Insulin Aspart (Novolog Vial Sliding Scale -) 1 vial SQ ACHS [facility] PRN Reason: Protocol Last Admin: 10/06/17 06:47 Dose: 2 units Labetalol HCl (Normodyne Injection -) 10 mg IVPUSH [id number] PRN PRN Reason: HYPERTENSION Levetiracetam (Keppra -) 500 mg PO BID [facility] Last Admin: 10/06/17 09:26 Dose: 500 mg Mupirocin (Bactroban Ointment (For Decolonization) -) 1 applic NS BID [facility] Stop: 10/10/17 21:59 Last Admin: 10/06/17 09:26 Dose: 1 applic Oxycodone HCl (Roxicodone -) 5 mg PO Q4H PRN PRN Reason: PAIN LEVEL 1-5 Oxycodone HCl (Roxicodone -) 10 mg PO Q4H PRN PRN Reason: PAIN LEVEL 6-10 Pantoprazole Sodium (Protonix -) 40 mg PO DAILY [facility] Last Admin: 10/06/17 09:26 Dose: 40 mg Gen: NAD at rest, bandage intact Heart: RRR, (+) ESM Lung: decreased breath sounds at the bases Abd: soft, nontender Ext: no edema Neuro: nonfocal Laboratory Results - last 24 hr 10/05/17 10/05/17 10/05/17 06:30 14:44 18:56 WBC RBC Hgb Hct MCV MCH MCHC RDW Plt Count MPV Neutrophils % Lymphocytes % Monocytes % Eosinophils % Basophils % Sodium Potassium Chloride Carbon Dioxide Anion Gap BUN Creatinine POC Glucometer [phone] Random Glucose Calcium Carcinoembryonic Ag 3.3 10/06/17 10/06/17 05:30 05:30 WBC 15.7 H RBC 3.83 L Hgb 12.0 Hct 33.7 L MCV 88.0 MCH 31.4 MCHC 35.7 RDW 12.6 Plt Count 214 MPV 11.2 H Neutrophils % 87.1 H Lymphocytes % 7.3 L Monocytes % 5.6 D Eosinophils % 0.0 Basophils % 0.0 Sodium 139 Potassium 4.3 Chloride 105 Carbon Dioxide 27 Anion Gap 7 L BUN 18 Creatinine 0.8 POC Glucometer Random Glucose 179 H D Calcium 8.5 Carcinoembryonic Ag ASSESSMENT AND PLAN: Seizure Brain Mass/Abscess Lung Nodule h/o Colon Ca HTN Hyperlipidemia - ABX per ID - f/u OR cultures - ECHO - AEDs - IVF - pain control - Incentive Spirometry - Will need CT guided needle biopsy for lung nodule - VTE prophylaxis Dr Dukes Critical care time spent in reviewing chart, evaluating patient and formulating plan - 36 minutes.
[2017-10-06] MEDS ORDERED: VANCOMYCIN 1,250 MG in DEXTROSE 5%-WATER - 250 ML IVPB SCH (12:00)
--- NOTE | 2017-10-06 13:03 | PATH ---
Surgical Pathology Report Patient Name: SHA COLE Med. Rec. #: [id number] /Age/Gender: 1955 (Age: 62) / M Account: [id number] Location: [facility]/SURG Taken: 10/05/2017 Received: 10/05/2017 Reported: 10/06/2017 Physicians: Carlos Hinkle M.D. Specimen(s) Received A: LESION OF LEFT PARIETAL LOBE B: PERMANENT LEFT PARIETAL LESION C: PERMANENT ABSCESS VS TUMOR LEFT PERIETAL LESION Clinical History Left parietal lobe lesion Intraoperative Consult Diagnosis Lesion of left parietal lobe: Acute inflammatory cells, consistent with abscess. Tk Rodríguez M.D., 10/05/17 Final Diagnosis LEFT PARIETAL LOBE LESION, BIOPSY: ACUTE INFLAMMATORY EXUDATE, CONSISTENT WITH ABSCESS. Electronically Signed Mitzi Rodríguez M.D. Addendum Reported: 10/09/2017 Addendum Diagnosis B. LEFT PARIETAL LESION, PERMANENT, BIOPSY: BRAIN TISSUE WITH RECENT HEMORRHAGE AND PERIVASCULAR ABSCESS. C. ABSCESS VS. TUMOR LEFT PARIETAL LESION, BIOPSY: ACUTE INFLAMMATORY EXUDATE ADMIXED WITH RECENT HEMORRHAGE, CONSISTENT WITH ABSCESS. SCANTY BRAIN TISSUE PRESENT. Gross Description: B. Received in formalin labeled "permanent left parietal lesion," is a 0.6 x 0.5 x 0.2 cm. aggregate of philip soft tissue fragments. The formalin is filtered and the specimen is entirely submitted in one cassette. C. Received in formalin labeled "permanent abscess vs. tumor left Parietal lesion," is a 0.7 x 0.6 x 0.2 cm. aggregate of philip soft tissue fragments admixed with mucus. The formalin is filtered and the specimen is entirely submitted in one cassette. DL/10/06/2017 Mitzi Rodríguez M.D. Gross Description Received fresh labeled "left parietal lobe lesion," is a 0.8 x 0.6 x 0.1 cm aggregate of red blood. No definite soft tissue is identified grossly. A touch prep is performed and the specimen is entirely submitted for frozen section. The frozen section residue is entirely submitted in one cassette. 10/05/201710/05/2017
--- NOTE | 2017-10-06 14:06 | MSN ---
Progress Note (SOAP) - Subjective Chief Complaint: Seizure and left sided brain lesion History of Present Illness: Patient is a 62 year old male with past medical hx of HTN, HLD, and previously resected colon cancer (1994) that is post op day 1 after stereotactic microsurgical biopsy/ resection of a left sided brain lesion. Today the patient states he is feeling well. The patient denies any new complaints and reports that he is not having any numbness/weakness in his right lower extremity as previously noted. The patient also denies any new onset focal neurological deficits or headaches. ROS is negative at this time for any N/V, fever, chills, chest pain, SOB, abdominal pain or diarrhea. - Current Medications Current Medications: Active Medications Chlorhexidine Gluconate (Hibiclens For Decolonization -) 1 applic TP HS [facility] Last Admin: 10/05/17 21:19 Dose: 1 applic Fentanyl (Sublimaze Injection -) 50 mcg IVPUSH [id number] PRN PRN Reason: PAIN-PACU ORDER X 4 DOSES ONLY Heparin Sodium (Porcine) (Heparin -) 5,000 unit SQ TID [facility] Last Admin: 10/06/17 13:15 Dose: 5,000 unit Vancomycin HCl 1,250 mg/ (Dextrose) 250 mls @ 250 mls/2 hr IVPB DAILY@1200 [facility] PRN Reason: Protocol Last Admin: 10/06/17 12:28 Dose: 250 mls/2 hr Piperacillin Sod/Tazobactam (Sod 3.375 gm/ Dextrose) 50 mls @ 100 mls/hr IVPB Q8H-IV [facility] PRN Reason: Protocol Last Admin: 10/06/17 09:25 Dose: 100 mls/hr Insulin Aspart (Novolog Vial Sliding Scale -) 1 vial SQ ACHS [facility] PRN Reason: Protocol Last Admin: 10/06/17 11:46 Dose: 4 units Labetalol HCl (Normodyne Injection -) 10 mg IVPUSH [id number] PRN PRN Reason: HYPERTENSION Levetiracetam (Keppra -) 500 mg PO BID [facility] Last Admin: 10/06/17 09:26 Dose: 500 mg Mupirocin (Bactroban Ointment (For Decolonization) -) 1 applic NS BID [facility] Stop: 10/10/17 21:59 Last Admin: 10/06/17 09:26 Dose: 1 applic Oxycodone HCl (Roxicodone -) 5 mg PO Q4H PRN PRN Reason: PAIN LEVEL 1-5 Oxycodone HCl (Roxicodone -) 10 mg PO Q4H PRN PRN Reason: PAIN LEVEL 6-10 Pantoprazole Sodium (Protonix -) 40 mg PO DAILY [facility] Last Admin: 10/06/17 09:26 Dose: 40 mg - Objective Vital Signs: Vital Signs Temperature 97.9 F 10/06/17 08:00 Pulse Rate 62 10/06/17 10:00 Respiratory Rate 19 10/06/17 10:00 Blood Pressure 135/68 10/06/17 10:00 O2 Sat by Pulse Oximetry (%) 95 10/06/17 09:00 Constitutional: Yes: Well Nourished, No Distress, Calm Eyes: Yes: Conjunctiva Clear, EOM Intact, Other (pupils minimally reactive to light and accomadation ) HENT: Yes: Other (head dressing from surgery applied circumferentially to the head ). No: Pharyngeal Erythema, Thrush Neck: Yes: Supple, Trachea Midline Cardiovascular: Yes: Bradycardia, Other (3/5 holosystolic murmur hears loudest at the apex that radiates to the axilla ) Respiratory: Yes: Regular, CTA Bilaterally Gastrointestinal: Yes: Normal Bowel Sounds, Soft. No: Tenderness Musculoskeletal: No: Muscle Pain, Muscle Weakness Peripheral Pulses WNL: Yes Peripheral Pulses: Left Doralis Pedis: 2+, Right Dorsalis Pedis: 2+ Edema: No Wound/Incision: Yes: Dressing Dry and Intact Neurological: Yes: Cran Nerves II-XII Intact. No: Aphasia, Loss of Sensation, Numbness, Paresthesia, Weakness ...Motor Strength: Yes: WNL Psychiatric: Yes: Alert, Oriented Labs Lab Results: CBC, BMP 10/06/17 05:30 10/06/17 05:30 Problem List - Problems (1) Mass of brain Code(s): G93.9 - DISORDER OF BRAIN, UNSPECIFIED (2) Seizure Code(s): R56.9 - UNSPECIFIED CONVULSIONS Assessment/Plan Assessment/Plan: The patient is a 62 year old male with past medical hx of HTN, HLD, and previously resected colon cancer (1994) that is post op day 1 after a sterotactic microsurgical biopsy/resection of a left brain lesion following new onset seizures. # Left parietal Lobe brain lesion - post op day 1 - purulent drainage during procedure likely suggests infectious abcess formation but cannot rule out liquifactive necrosis from malignancy - culture of the head are negative with blood and abcess cultures pending - echo did not show any signs of vegetation that would suggest endocariditis septic emboli - continue vanc + Zosyn as per ID - obtain vanco trough - continue keppra 500mg BID for seizure prophylaxis # Left lower lung mass - secondary to infectious abscess vs metastatic disease vs primary malignancy - [employer] Dr. Mejía consulted - once patient is stable post op diagnostic peripheral biopsy will be obtained # New onset Seizures - continue Keppra 500mg BID # Previously resected colon cancer - CEA level WNL - will review colonoscopy report from Dr. Guerrero office # HTN - BP WNL - continue to hold HCTZ to protect kidney from contrast injury - continue amlodipine and lisinopril # DM - ISS - start oral medication on d/c # HLD - continue lipitor 80mg F/E/N - LR 100 mls/hr - electrolytes WNL - regular diet PPX - heparin sub q - PPI
--- NOTE | 2017-10-06 15:12 | PN ---
Teaching Attending Note Name of Resident: Luanne Collazo ATTENDING PHYSICIAN STATEMENT I saw and evaluated the patient. I reviewed the resident's note and discussed the case with the resident. I agree with the resident's findings and plan as documented. SUBJECTIVE: No fever or chills. no pain, no LUJAN, no weakness , numbness or tingling OBJECTIVE: NAD, AAox3 CV: RRR. 2/6 SM at RUSB, and 3/6 SM at apex. Lungs: CTAB Ext: no edema. abrasion on R givens Neuro : EOMI, round equal pupils , reactive to light , uvula and tongue at mid line . NL facial sensation . Strength 5/5 in upper and lower extremities, proximally and distally . sensation to light touch Nl. reflexes 2+ knee jerk, biceps bilaterally . ASSESSMENT AND PLAN: Pleasant 62 y/o gentleman with h/o colon cancer s/p resection and chemo, HTn, HLP, who presented with new onset seizure and was found to have a brain mass. 1- New onset seizure, due to brain mass - cont keppra BID - seizure precautions 2- Brain abscess: no clear source. - cont Abx . - vanco trough before 4th dose - Echo with no vegetation, will ask card to evaluate for KAYDEN. - folow Bx results and culture results - monitor leukocytosis off steroids 3- L lung mass. - will plan for a bipsy 4- New diagnosis of DM. A1c 6.6. - SSI while on steroids - metformin as out pt 5- HTN: cont lisinopril and norvasc. hold HCTZ to avoid CODY. s/p 24 hr hydration. Monitor renal function 6- DVT PX ,heparin sq
--- NOTE | 2017-10-06 15:49 | PN ---
Physical Exam: SUBJECTIVE: Patient awake, alert, no chest pain, shortness of breath. Family @ bedside. OBJECTIVE: Vital Signs Period Temp Pulse Resp BP Sys/Gardiner Pulse Ox Last 24 Hr 97.4 F-98.1 F 43-68 14-19 97-135/56-78 95-95 GENERAL: The patient is awake, alert, and fully oriented, in no acute distress. HEAD: Normal, L sided surgical wound, no surrounding erythema, edema EYES: PERRL, extraocular movements intact, sclera anicteric, conjunctiva clear. No ptosis. NECK: Trachea midline, full range of motion, supple. LUNGS: Breath sounds equal, clear to auscultation bilaterally, no wheezes, no crackles, no accessory muscle use. HEART: Regular rate and rhythm, S1, S2 without murmur, rub or gallop. EXTREMITIES: 2+ pulses, warm, well-perfused, no edema. NEUROLOGICAL: Cranial nerves II through XII grossly intact. Normal speech, gait not observed. PSYCH: Normal mood, normal affect. SKIN: Warm, dry, normal turgor, no rashes or lesions noted Laboratory Results - last 24 hr 10/05/17 10/05/17 10/06/17 06:30 18:56 05:30 WBC 15.7 H RBC 3.83 L Hgb 12.0 Hct 33.7 L MCV 88.0 MCH 31.4 MCHC 35.7 RDW 12.6 Plt Count 214 MPV 11.2 H Neutrophils % 87.1 H Lymphocytes % 7.3 L Monocytes % 5.6 D Eosinophils % 0.0 Basophils % 0.0 Sodium Potassium Chloride Carbon Dioxide Anion Gap BUN Creatinine POC Glucometer [phone] Random Glucose Calcium Carcinoembryonic Ag 3.3 10/06/17 05:30 WBC RBC Hgb Hct MCV MCH MCHC RDW Plt Count MPV Neutrophils % Lymphocytes % Monocytes % Eosinophils % Basophils % Sodium 139 Potassium 4.3 Chloride 105 Carbon Dioxide 27 Anion Gap 7 L BUN 18 Creatinine 0.8 POC Glucometer Random Glucose 179 H D Calcium 8.5 Carcinoembryonic Ag Active Medications Generic Name Dose Route Start Last Admin Trade Name Freq PRN Reason Stop Dose Admin Chlorhexidine Gluconate 1 applic 10/05/17 22:00 10/05/17 21:19 Hibiclens For Decolonization - TP 1 applic HS TIFFANIE Administration Fentanyl 50 mcg 10/05/17 16:35 Sublimaze Injection - IVPUSH [id number] PRN PAIN-PACU ORDER X 4 DOSES ONLY Heparin Sodium (Porcine) 5,000 unit 10/05/17 22:00 10/06/17 13:15 Heparin - SQ 5,000 unit TID TIFFANIE Administration Vancomycin HCl 1,250 mg/ 250 mls @ 250 mls/2 hr 10/06/17 12:00 10/06/17 12:28 Dextrose IVPB 250 mls/2 hr DAILY@1200 TIFFANIE Administration Protocol Piperacillin Sod/Tazobactam 50 mls @ 100 mls/hr 10/05/17 18:00 10/06/17 09:25 Sod 3.375 gm/ Dextrose IVPB 100 mls/hr Q8H-IV TIFFANIE Administration Protocol Insulin Aspart 1 vial 10/05/17 16:30 10/06/17 11:46 Novolog Vial Sliding Scale - SQ 4 units ACHS TIFFNAIE Administration Protocol Labetalol HCl 10 mg 10/05/17 15:01 Normodyne Injection - IVPUSH [id number] PRN HYPERTENSION Levetiracetam 500 mg 10/05/17 22:00 10/06/17 09:26 Keppra - PO 500 mg BID TIFFANIE Administration Mupirocin 1 applic 10/05/17 22:00 10/06/17 09:26 Bactroban Ointment (For Decolonization) - NS 10/10/17 21:59 1 applic BID TIFFANIE Administration Oxycodone HCl 5 mg 10/05/17 15:15 Roxicodone - PO Q4H PRN PAIN LEVEL 1-5 Oxycodone HCl 10 mg 10/05/17 15:15 Roxicodone - PO Q4H PRN PAIN LEVEL 6-10 Pantoprazole Sodium 40 mg 10/06/17 10:00 10/06/17 09:26 Protonix - PO 40 mg DAILY TIFFANIE Administration ASSESSMENT/PLAN: 62 year old male presents w/seizure. CT showed L parietal mass, MRI showed 2 cm L sided ring enhancing lesion. CT Chest showed LLL peripheral mass. Operative intervention found brain abscess. ICU for post operative care 1. POD #1 L sided parietal lobe evacuation w/abscess appreciated operatively - No SOB, CP - Brain abscess noted during procedure, possibly liquefactive necrosis 2/2 malignancy vs. infectious abscess, culture pending - Continue Vancomycin and Zoysn - KAYDEN pending for endocarditis - Blood cultures pending - Continue Keppra BID - Leukocytosis likely 2/2 to steroid use - patient given Dexamethasone IV pre- operatively - Neurology and ID following, appreciate recs 2. SEIZURE - likely 2/2 to brain mass - Keppra BID - Seizure precautions 3. HTN - Post BP 120's-130's - Continue home medication regimen 4. NIDDM - Insulin SSI - No prior DM diagnosis - Outpatient f/u for termination clerk management as patient currently on steroids 5. PERIPHERAL LLL MASS - possible metatasis from colon or brain malignancy - No h/o cigarette smoking; CT guided needle biopsy 6. H/O of COLON CA - Colonoscopy normal in 2017 - Heme/onc follow up as outpatient FEN/Ppx -- LR @100cc/hr, clear diet, HSQ tid DISPOSITION: Patient stable for transfer to inpatient medicine floor Visit type - Emergency Visit Emergency Visit: No - New Patient This patient is new to me today: Yes Date on this admission: 10/11/17 - Critical Care Critical Care patient: No
--- NOTE | 2017-10-06 15:58 | PN ---
Progress Note, Physician History of Present Illness: patient stable no new issue family in the room - Current Medication List Current Medications: Active Medications Chlorhexidine Gluconate (Hibiclens For Decolonization -) 1 applic TP HS [facility] Last Admin: 10/05/17 21:19 Dose: 1 applic Fentanyl (Sublimaze Injection -) 50 mcg IVPUSH [id number] PRN PRN Reason: PAIN-PACU ORDER X 4 DOSES ONLY Heparin Sodium (Porcine) (Heparin -) 5,000 unit SQ TID [facility] Last Admin: 10/06/17 13:15 Dose: 5,000 unit Vancomycin HCl 1,250 mg/ (Dextrose) 250 mls @ 250 mls/2 hr IVPB DAILY@1200 TIFFANIE PRN Reason: Protocol Last Admin: 10/06/17 12:28 Dose: 250 mls/2 hr Piperacillin Sod/Tazobactam (Sod 3.375 gm/ Dextrose) 50 mls @ 100 mls/hr IVPB Q8H-IV [facility] PRN Reason: Protocol Last Admin: 10/06/17 09:25 Dose: 100 mls/hr Insulin Aspart (Novolog Vial Sliding Scale -) 1 vial SQ ACHS [facility] PRN Reason: Protocol Last Admin: 10/06/17 11:46 Dose: 4 units Labetalol HCl (Normodyne Injection -) 10 mg IVPUSH [id number] PRN PRN Reason: HYPERTENSION Levetiracetam (Keppra -) 500 mg PO BID [facility] Last Admin: 10/06/17 09:26 Dose: 500 mg Mupirocin (Bactroban Ointment (For Decolonization) -) 1 applic NS BID [facility] Stop: 10/10/17 21:59 Last Admin: 10/06/17 09:26 Dose: 1 applic Oxycodone HCl (Roxicodone -) 5 mg PO Q4H PRN PRN Reason: PAIN LEVEL 1-5 Oxycodone HCl (Roxicodone -) 10 mg PO Q4H PRN PRN Reason: PAIN LEVEL 6-10 Pantoprazole Sodium (Protonix -) 40 mg PO DAILY [facility] Last Admin: 10/06/17 09:26 Dose: 40 mg - Objective Vital Signs: Vital Signs Temperature 98 F 10/06/17 14:00 Pulse Rate 68 10/06/17 14:00 Respiratory Rate 18 10/06/17 14:00 Blood Pressure 131/76 10/06/17 14:00 O2 Sat by Pulse Oximetry (%) 95 10/06/17 09:00 Constitutional: Yes: No Distress, Calm Eyes: Yes: Conjunctiva Clear HENT: Yes: Atraumatic Neck: Yes: Supple, Trachea Midline Cardiovascular: Yes: Regular Rate and Rhythm Respiratory: Yes: Regular, CTA Bilaterally Gastrointestinal: Yes: Normal Bowel Sounds, Soft Musculoskeletal: Yes: WNL Extremities: Yes: WNL Wound/Incision: Yes: Dressing Dry and Intact Neurological: Yes: Alert, Oriented Psychiatric: Yes: Alert, Oriented Labs: CBC, BMP 10/06/17 05:30 10/06/17 05:30 INR, PTT INR 1.12 (0.82-1.09) 10/04/17 01:16 Assessment/Plan Seizure Brain Mass/Abscess Lung Nodule h/o Colon Ca HTN Hyperlipidemia plan continue abx await for cx result continue current mgmt patient stable dressing rest as per icu cc time 40 min
--- NOTE | 2017-10-06 19:16 | PN ---
Physical Exam: SUBJECTIVE: Patient seen and examined at bedside. Overnight, pt drowsy however AAOx3, afebrile. Today, pt without complaint. States that he "feels fine," with improved RLE strength. with family at bedside. Denies LUJAN, fever, chills, SOB, or changes in urinary or bowel function. OBJECTIVE: Vital Signs Period Temp Pulse Resp BP Sys/Gardiner Pulse Ox Last 24 Hr 97.4 F-98.1 F 43-70 14-19 97-138/56-78 95-95 GENERAL: The patient is awake, alert, and fully oriented, in no acute distress. HEAD: +with bandage, cap EYES: PERRL, extraocular movements intact, sclera anicteric, conjunctiva clear. ENT: Ears normal, nares patent, oropharynx clear without exudates NECK: Trachea midline, supple. LUNGS: Breath sounds equal, clear to auscultation bilaterally, no wheezes, no crackles, no accessory muscle use. HEART: Regular rate and rhythm, S1, S2 without murmur, rub or gallop. ABDOMEN: Soft, nontender, nondistended, normoactive bowel sounds, no guarding EXTREMITIES: 2+ pt pulses, warm, well-perfused, no edema. NEUROLOGICAL: Cranial nerves II through XII grossly intact. Normal speech. motor strength 5/5 in upper and lower extremities, sensation intact. PSYCH: Normal mood, normal affect. SKIN: Warm, dry, normal turgor Laboratory Results - last 24 hr 10/05/17 10/05/17 10/06/17 06:30 18:56 05:30 WBC 15.7 H RBC 3.83 L Hgb 12.0 Hct 33.7 L MCV 88.0 MCH 31.4 MCHC 35.7 RDW 12.6 Plt Count 214 MPV 11.2 H Neutrophils % 87.1 H Lymphocytes % 7.3 L Monocytes % 5.6 D Eosinophils % 0.0 Basophils % 0.0 Potassium Creatinine POC Glucometer [phone] Calcium Carcinoembryonic Ag 3.3 Active Medications Generic Name Dose Route Start Last Admin Trade Name Freq PRN Reason Stop Dose Admin Chlorhexidine Gluconate 1 applic 10/05/17 22:00 10/05/17 21:19 Hibiclens For Decolonization - TP 1 applic HS TIFFANIE Administration Fentanyl 50 mcg 10/05/17 16:35 Sublimaze Injection - IVPUSH [id number] PRN PAIN-PACU ORDER X 4 DOSES ONLY Heparin Sodium (Porcine) 5,000 unit 10/05/17 22:00 10/06/17 13:15 Heparin - SQ 5,000 unit TID TIFFANIE Administration Vancomycin HCl 1,250 mg/ 250 mls @ 250 mls/2 hr 10/06/17 12:00 10/06/17 12:28 Dextrose IVPB 250 mls/2 hr DAILY@1200 TIFFANIE Administration Protocol Piperacillin Sod/Tazobactam 50 mls @ 100 mls/hr 10/05/17 18:00 10/06/17 17:26 Sod 3.375 gm/ Dextrose IVPB 100 mls/hr Q8H-IV TIFFANIE Administration Protocol Insulin Aspart 1 vial 10/05/17 16:30 10/06/17 17:27 Novolog Vial Sliding Scale - SQ 4 units ACHS TIFFANIE Administration Protocol Labetalol HCl 10 mg 10/05/17 15:01 Normodyne Injection - IVPUSH [id number] PRN HYPERTENSION Levetiracetam 500 mg 10/05/17 22:00 10/06/17 09:26 Keppra - PO 500 mg BID TIFFANIE Administration Mupirocin 1 applic 10/05/17 22:00 10/06/17 09:26 Bactroban Ointment (For Decolonization) - NS 10/10/17 21:59 1 applic BID TIFFANIE Administration Oxycodone HCl 5 mg 10/05/17 15:15 Roxicodone - PO Q4H PRN PAIN LEVEL 1-5 Oxycodone HCl 10 mg 10/05/17 15:15 Roxicodone - PO Q4H PRN PAIN LEVEL 6-10 Pantoprazole Sodium 40 mg 10/06/17 10:00 10/06/17 09:26 Protonix - PO 40 mg DAILY TIFFANIE Administration IMAGING 10/04/17: CXR: shallow inspiration. No evidence of widening of superior mediastinum. The heart is borderline enlarged. Normal contous of the thoracic aorta. Normal aeration of the right lung. The right diaphragm is slightly elevated. No pneumothorax, or large pleural effusion is seen. No evidence of CHF. 10/04/17: Head CT without contrast: vasogenic edema of the left posterior frontal /parietal high convexity with questionable poorly visualized lesion measuring 1.7cm for which correlation with contrast-enhanced MRI of the brain recommended 10/04/17: Abd/pelvis CT: peripheral LLL mass, can't exclude malignancy. need core biopsy, PET/CT. no pathology noted in chest, abdomen, pelvis. 10/05/17: Brain MRI: 2cm L posterior parietal sorto matter mass lesion- high signal intensity T1, infectious or metastatic with perifocal edema. 10/05/17: Repeat brain MRI after surgery: irregular peripheral enhancement medial , inferior margin. can't r/o residual tumor 10/06/17: ECHO: EF 63.4%, mild AR, MR, IL, without vegetations Microbiology 10/05/17 13:14 Head Gram Stain - Final 10/05/17: abscess: AFB, mycobacterial cx, ZULY, fungal cx - pending 10/05/17: blood cx - NGTD ASSESSMENT/PLAN: 62 y/o M with PMH HTN, HLD, hx colon CA (resected 1994), BIBEMS for new onset seizure. Pt found to have 3.4x2.2cm edema in L parietal lobe likely vasogenic 2/ 2 underlying 1.7cm mass. #1.7 cm L parietal lobe mass, possible mets 2/2 lung CA Craniotomy with parietal lobe evacuation of intracranial abscess- PO Day 0 -Pt with abscess noted during procedure, may be liquefactive necrosis from CA/ tumor, or may be infectious abscess -head wrap not to be opened until tomorrow, d/t increased risk infection -possible bacteremia, f/u blood cx -ECHO without any noted vegetations -Cardio - [place] ; eval for KAYDEN to r/o endocarditis -F/u abscess AFB, mycobacterial cx, ZULY, fungal cx, gram stain, fluid cx -Blood cx (-) NGTD -started on vanco 1.25 g, zosyn 3.375 q8h IVPB qd (Today is Day 2) -continue Keppra 500 mg PO BID for sz PPX -Neurology- Dr. Duncan -Neurosurgery- Dr. Hinkle -ID- Dr. Balderrama -Dexamethasone 4mg PO q6h - has been d/c -continue neurochecks q4h -incentive spirometry -BP goal SBP <130 -pain control- roxicodone 5mg q4 PRN, with 10mg q4 PRN for higher intensity #peripheral LLL mass -will likely need CT guided lung bx -pulm consult-Dr. Mejía #New onset seizure, likely 2/2 parietal lobe mass -Keppra 500mg PO BID for sz prophylaxis -seizure precautions, padding #Hx colon CA (resected 1994) -June colonoscopy - WNL; results obtained from [facility] -Heme-onc consult - Dr. Smith -CEA-WNL ; will need to obtain past CEA report #HTN-currently controlled -Continue lisinopril 40 mg PO qd -amlodipine 10mg PO qd -will continue to hold HCTZ 12.5 mg PO qd #New DM -may be exacerbated by steroids -A1c 6.6 -ISS ACHS -BGM -will likely start on metformin as outpt if renal fnc, GFR permits #HLD -Continue lipitor 80 mg PO qHS #F/E/N -IVF have been d/c -continue to follow lytes -regular diet #PPX -Hep 5000 SQ TID has been restarted -GI: protonix 40mg PO qd #Dispo -Continued ICU monitoring, post-op - for transfer to Visit type - Emergency Visit Emergency Visit: No - New Patient This patient is new to me today: Yes Date on this admission: 10/06/17 - Critical Care Critical Care patient: Yes Total Critical Care Time (in minutes): 45 Critical Care Statement: The care of this patient involved high complexity decision making to prevent further life threatening deterioration of the patient 's condition and/or to evaluate & treat vital organ system(s) failure or risk of failure.
[2017-10-06] MEDS: CHLORHEXIDINE GLUCONATE 4% CLEANSER FOR DECOLONIZATION TP SCH (21:29)
[2017-10-07] MEDS ORDERED: PIPERACILLIN/TAZOBACTAM 3.375 GM VIAL IVPB ONE ×2 (00:56→09:38)
[2017-10-07] MEDS ORDERED: DEXTROSE 5%-WATER - 50 ML IVPB ONE ×2 (00:57→09:38)
[2017-10-07] MEDS: PIPERACILLIN/TAZOB 3.375 GM 3.375 GM in DEXTROSE 5%-WATER - 50 ML IVPB SCH ×2 (01:33→09:43)
[2017-10-07] MEDS: INSULIN SLIDING SCALE (NOVOLOG) 1 VIAL SQ SCH ×4 (06:13→21:18)
[2017-10-07] MEDS: HEPARIN NA (PORCINE) 5,000 UNITS/ML 1ML VIAL SQ SCH ×3 (06:34→21:17)
[2017-10-07 07:37] LABS: HEMOGLOBIN 13.1 GM/dL (11.7-16.9); MCH 31.7 pg (25.7-33.7); MCHC 36.3 g/dl (32.0-35.9); MEAN CELL VOLUME 87.3 fl (80-96); MEAN PLT VOLUME 11.1 fl (7.5-11.1); PLATELET COUNT 170 K/MM3 (134-434); RBC 4.13 M/mm3 (4.00-5.60); RDW 12.6 % (11.9-15.9); WHITE BLOOD COUNT 10.1 K/mm3 (4.0-10.0)
[2017-10-07 08:26] LABS: CHLORIDE 107 mmol/L (98-107); POTASSIUM 3.9 mmol/L (3.5-5.1); SODIUM 139 mmol/L (136-145)
[2017-10-07 08:58] LABS: ALBUMIN 2.9 g/dl (3.4-5.0); ALK PHOS 70 U/L (45-117); ANION GAP 6 (8-16); BILIRUBIN,TOTAL 0.7 mg/dL (0.2-1.0); BLOOD UREA NITROGEN 14 mg/dL (7-18); CALCIUM 8.4 mg/dL (8.5-10.1); CO2 26 mmol/L (21-32); CREATININE 0.8 mg/dL (0.7-1.3); GLUCOSE,RANDOM 146 mg/dL (74-106); SGOT/AST 11 U/L (15-37); SGPT/ALT 17 U/L (12-78); TOT PROT 5.9 g/dl (6.4-8.2)
[2017-10-07] MEDS: PANTOPRAZOLE 40 MG TABLET (FP) PO SCH (09:42)
[2017-10-07] MEDS: levETIRAcetam 500 MG TABLET (FP) PO SCH ×2 (09:42→21:17)
[2017-10-07] MEDS: MUPIROCIN 2% TOPICAL OINTMENT FOR DECOLONIZATION NS SCH ×2 (09:49→21:17)
--- NOTE | 2017-10-07 11:09 | PN ---
Teaching Attending Note Name of Resident: Luanne Collazo ATTENDING PHYSICIAN STATEMENT I saw and evaluated the patient. I reviewed the resident's note and discussed the case with the resident. I agree with the resident's findings and plan as documented. SUBJECTIVE: No fever or chills. no weakness but he feels his R upper extremity is different today . no change in vision, swallowing, numbness or tingling OBJECTIVE: NAD, AAox3 CV: RRR. 2/6 SM at RUSB, and 3/6 SM at apex. Lungs: CTAB Ext: no edema. scabbed abrasion on R givens Neuro : EOMI, round equal pupils , reactive to light , uvula and tongue at mid line . NL facial sensation . Strength 5/5 in upper and lower extremities, proximally and distally . sensation to light touch Nl. reflexes 2+ knee jerk, biceps bilaterally . R pronator drift . ASSESSMENT AND PLAN: Pleasant 62 y/o gentleman with h/o colon cancer s/p resection and chemo, HTn, HLP, who presented with new onset seizure and was found to have a brain mass. 1- New onset seizure, due to brain mass - cont keppra BID - seizure precautions 2- Brain abscess: Bx is consistent with abscess. no clear source. today he feels abnormal in his RUE. with neuro exam significant for R pronator drift today . - Stat CT of brain , to r/o edema and/or bleed at site of surgery - MRI of C, T spine to r/o epidural abscess - cont Abx. - vanco trough tomorrow - Echo with no vegetation, will ask card to evaluate for KAYDEN. - monitor leukocytosis off steroids - follow abscess cx 3- L lung mass. - will plan for a biopsy 4- New diagnosis of DM. A1c 6.6. - SSI while on steroids - metformin as out pt 5- HTN: cont lisinopril and norvasc. Monitor renal function 6- DVT PX ,heparin sq
--- NOTE | 2017-10-07 11:26 | PN ---
Progress Note, Physician History of Present Illness: patient feels much better no new issues says he is doing well - Current Medication List Current Medications: Active Medications Chlorhexidine Gluconate (Hibiclens For Decolonization -) 1 applic TP HS [facility] Last Admin: 10/06/17 21:29 Dose: Not Given Fentanyl (Sublimaze Injection -) 50 mcg IVPUSH [id number] PRN PRN Reason: PAIN-PACU ORDER X 4 DOSES ONLY Heparin Sodium (Porcine) (Heparin -) 5,000 unit SQ TID [facility] Last Admin: 10/07/17 06:34 Dose: 5,000 unit Ceftriaxone Sodium (Ceftriaxone 2 Gm-D5w Bag) 2 gm in 50 mls @ 100 mls/hr IVPB DAILY [facility] PRN Reason: Protocol Metronidazole (Flagyl 500mg Premixed Ivpb -) 500 mg in 100 mls @ 100 mls/hr IVPB Q8H-IV [facility] Insulin Aspart (Novolog Vial Sliding Scale -) 1 vial SQ ACHS [facility] PRN Reason: Protocol Last Admin: 10/07/17 06:13 Dose: Not Given Labetalol HCl (Normodyne Injection -) 10 mg IVPUSH [id number] PRN PRN Reason: HYPERTENSION Levetiracetam (Keppra -) 500 mg PO BID [facility] Last Admin: 10/07/17 09:42 Dose: 500 mg Mupirocin (Bactroban Ointment (For Decolonization) -) 1 applic NS BID [facility] Stop: 10/10/17 21:59 Last Admin: 10/07/17 09:49 Dose: Not Given Oxycodone HCl (Roxicodone -) 5 mg PO Q4H PRN PRN Reason: PAIN LEVEL 1-5 Oxycodone HCl (Roxicodone -) 10 mg PO Q4H PRN PRN Reason: PAIN LEVEL 6-10 Pantoprazole Sodium (Protonix -) 40 mg PO DAILY [facility] Last Admin: 10/07/17 09:42 Dose: 40 mg - Objective Vital Signs: Vital Signs Temperature 98.1 F 10/07/17 10:00 Pulse Rate 76 10/07/17 10:00 Respiratory Rate 18 10/07/17 10:00 Blood Pressure 157/80 10/07/17 10:00 O2 Sat by Pulse Oximetry (%) 94 L 10/06/17 21:00 Constitutional: Yes: No Distress, Calm Cardiovascular: Yes: Regular Rate and Rhythm Respiratory: Yes: Regular, CTA Bilaterally Gastrointestinal: Yes: Normal Bowel Sounds, Soft Musculoskeletal: Yes: WNL Extremities: Yes: WNL Wound/Incision: Yes: Dressing Dry and Intact Neurological: Yes: Alert, Oriented Psychiatric: Yes: Alert, Oriented Labs: CBC, BMP 10/07/17 06:00 10/07/17 06:00 INR, PTT INR 1.12 (0.82-1.09) 10/04/17 01:16 Assessment/Plan Seizure Brain Mass/Abscess Lung Nodule h/o Colon Ca HTN Hyperlipidemia patients bacterial cx are negative,other cx are still awaited plan will change abx to ceftriaxone and flagyl will discuss with the primary team about further mgmt patient stable
[2017-10-07] MEDS ORDERED: DEXTROSE 5%-WATER 100 ML IVPB ONE (12:39)
--- NOTE | 2017-10-07 13:24 | PN ---
Physical Exam: SUBJECTIVE: Patient seen and examined at bedside. Yesterday evening, pt transferred out of ICU to the floor. No acute events overnight, pt with low temps of ~99. Today, pt states that he feels good, however c/o stiffness in RUE. Passing flatus, but has not had a BM yet. States that he is eating small portions. Otherwise, denies LUJAN, fever, chills, double vision, chest pain, SOB, changes in urinary function, or other motor neurological deficits. OBJECTIVE: Vital Signs Period Temp Pulse Resp BP Sys/Gardiner Pulse Ox Last 24 Hr 98 F-99.7 F 66-76 18-18 127-157/55-80 94 GENERAL: The patient is awake, alert, and fully oriented, in no acute distress. Resting in bed HEAD: +wrap, with cap, without facial droop or asymmetry EYES: PERRL, extraocular movements intact, sclera anicteric, conjunctiva clear. No ptosis. ENT: Ears normal, nares patent, oropharynx clear without exudates, moist mucous membranes. NECK: Trachea midline, supple. LUNGS: Breath sounds equal, clear to auscultation bilaterally, no wheezes, no crackles, no accessory muscle use. HEART: Regular rate and rhythm, S1, S2 without murmur, rub or gallop. ABDOMEN: Soft, nontender, nondistended, normoactive bowel sounds, no guarding, no rebound, no hepatosplenomegaly, no masses. UPPER EXTREMITIES: 2+ radial pulses, warm, well-perfused, no edema. LOWER EXTREMITIES: 2+ pt pulses, no edema NEUROLOGICAL: Cranial nerves II through XII grossly intact. Normal speech. +RUE pronator drift, with stiffness 4/5 motor strength. 5/5 motor strength LUE. 5/5 motor strength in both lower extremities. uvula midline, without tongue deviation. sensation intact throughout PSYCH: Normal mood, normal affect. SKIN: Warm, dry, normal turgor Laboratory Results - last 24 hr 10/06/17 10/06/17 10/06/17 16:11 19:40 21:17 Creat Clearance w eGFR POC Glucometer 204.76192 141.94334 159 Random Glucose Total Protein 10/07/17 10/07/17 10/07/17 06:00 06:00 06:01 WBC 10.1 H D RBC 4.13 Hgb 13.1 Hct 36.0 MCV 87.3 MCH 31.7 MCHC 36.3 H RDW 12.6 Plt Count 170 D MPV 11.1 Sodium 139 Potassium 3.9 Chloride 107 Carbon Dioxide 26 Anion Gap 6 L BUN 14 D Creatinine 0.8 Creat Clearance w eGFR > 60 POC Glucometer 149 Random Glucose 146 H Calcium 8.4 L Total Bilirubin 0.7 D AST 11 L ALT 17 D Alkaline Phosphatase 70 D Total Protein 5.9 L Albumin 2.9 L D Active Medications Generic Name Dose Route Start Last Admin Trade Name Freq PRN Reason Stop Dose Admin Chlorhexidine Gluconate 1 applic 10/05/17 22:00 10/06/17 21:29 Hibiclens For Decolonization - TP Not Given HS TIFFANIE Fentanyl 50 mcg 10/05/17 16:35 Sublimaze Injection - IVPUSH [id number] PRN PAIN-PACU ORDER X 4 DOSES ONLY Heparin Sodium (Porcine) 5,000 unit 10/05/17 22:00 10/07/17 06:34 Heparin - SQ 5,000 unit TID TIFFANIE Administration Ceftriaxone Sodium 2 gm/ 100 mls @ 200 mls/hr 10/07/17 11:30 Dextrose IVPB DAILY TIFFANIE Protocol Metronidazole 500 mg in 100 mls @ 100 mls/hr 10/07/17 11:30 10/07/17 12:46 Flagyl 500mg Premixed Ivpb - IVPB 100 mls/hr Q8H-IV TIFFANIE Administration Insulin Aspart 1 vial 10/05/17 16:30 10/07/17 11:59 Novolog Vial Sliding Scale - SQ 2 units ACHS TIFFANIE Administration Protocol Labetalol HCl 10 mg 10/05/17 15:01 Normodyne Injection - IVPUSH [id number] PRN HYPERTENSION Levetiracetam 500 mg 10/05/17 22:00 10/07/17 09:42 Keppra - PO 500 mg BID TIFFANIE Administration Mupirocin 1 applic 10/05/17 22:00 10/07/17 09:49 Bactroban Ointment (For Decolonization) - NS 10/10/17 21:59 Not Given BID TIFFANIE Oxycodone HCl 5 mg 10/05/17 15:15 Roxicodone - PO Q4H PRN PAIN LEVEL 1-5 Oxycodone HCl 10 mg 10/05/17 15:15 Roxicodone - PO Q4H PRN PAIN LEVEL 6-10 Pantoprazole Sodium 40 mg 10/06/17 10:00 10/07/17 09:42 Protonix - PO 40 mg DAILY TIFFANIE Administration IMAGING 10/04/17: CXR: shallow inspiration. No evidence of widening of superior mediastinum. The heart is borderline enlarged. Normal contous of the thoracic aorta. Normal aeration of the right lung. The right diaphragm is slightly elevated. No pneumothorax, or large pleural effusion is seen. No evidence of CHF. 10/04/17: Head CT without contrast: vasogenic edema of the left posterior frontal /parietal high convexity with questionable poorly visualized lesion measuring 1.7cm for which correlation with contrast-enhanced MRI of the brain recommended 10/04/17: Abd/pelvis CT: peripheral LLL mass, can't exclude malignancy. need core biopsy, PET/CT. no pathology noted in chest, abdomen, pelvis. 10/05/17: Brain MRI: 2cm L posterior parietal sorto matter mass lesion- high signal intensity T1, infectious or metastatic with perifocal edema. 10/05/17: Repeat brain MRI after surgery: irregular peripheral enhancement medial , inferior margin. can't r/o residual tumor 10/06/17: ECHO: EF 63.4%, mild AR, MR, CA, without vegetations 10/06/17: Head CT non-con: subsequent to prior study s/p resection of L parietal lobe with post surgical changes seen at the craniotomy site and also anterior including edema and air and a single focus of increased density perhaps representing a focal intracerebral hemorrhage; less than 1cm in size. no evidence of midline shift 10/06/17: C-spine, T-spine, L-spine w/contrast r/o epidural abscess: Microbiology 10/05/17 13:14 Head Gram Stain - Final 10/05/17: abscess: AFB, mycobacterial cx, ZULY, fungal cx - pending 10/05/17: blood cx - NGTD ASSESSMENT/PLAN: 62 y/o M with PMH HTN, HLD, hx colon CA (resected 1994), BIBEMS for new onset seizure. Pt found to have 3.4x2.2cm edema in L parietal lobe likely vasogenic 2/ 2 underlying 1.7cm mass. #1.7 cm L parietal lobe mass, possible mets 2/2 lung CA Craniotomy with parietal lobe evacuation of intracranial abscess- PO Day 2 -Pt with abscess noted during procedure, may be liquefactive necrosis from CA/ tumor, or may be infectious abscess -as per neurosurg, aquaseal change will be discussed after result of scans -possible bacteremia, f/u blood cx -ECHO without any noted vegetations -Cardio -KAYDEN for Monday. NPO after midnight prior -F/u abscess AFB, mycobacterial cx, gram stain, fluid cx (-) ZULY, fungal cx- pending -Blood cx (-) NGTD -completed vanco 1.25 g, zosyn 3.375 q8h IVPB qd x 2 days -changed to ceftriaxone 2gm IVPB qd, flagyl 500mg IVPB q8h (today is Day 1) -continue Keppra 500 mg PO BID for sz PPX -Neurology- Dr. Duncan -Neurosurgery- Dr. Bryan -ID- Dr. Balderrama -Dexamethasone 4mg PO q6h - has been d/c -continue neurochecks q4h -incentive spirometry -BP goal SBP <130 -pain control- roxicodone 5mg q4 PRN, with 10mg q4 PRN for higher intensity #New RUE stiffness -with R pronator drift -Stat Head CT non-con - edema and air, single focus of increased density perhaps representing a focal intracerebral hemorrhage; less than 1 cm in size. no midline shift; d/w Dr. Bryan no need for intervention at this time, can continue hep SQ DVT ppx -F/u C, T, L-spine - r/o epidural abscess -no dressing changes until scans return #peripheral LLL mass -will likely need CT guided lung bx -pulm consult-Dr. Mejía #New onset seizure, likely 2/2 parietal lobe mass -Keppra 500mg PO BID for sz prophylaxis -seizure precautions, padding #Hx colon CA (resected 1994) -June colonoscopy - WNL; results obtained from [facility] -Heme-onc consult - Dr. Smith -CEA-WNL ; will need to obtain past CEA report #HTN-currently controlled -Continue lisinopril 40 mg PO qd -amlodipine 10mg PO qd -will continue to hold HCTZ 12.5 mg PO qd #New DM -may be exacerbated by steroids -A1c 6.6 -ISS ACHS -BGM -will likely start on metformin as outpt if renal fnc, GFR permits #HLD -Continue lipitor 80 mg PO qHS #F/E/N -IVF have been d/c -continue to follow lytes -regular diet ; without BM, passing flatus. #PPX -Hep 5000 SQ TID -GI: protonix 40mg PO qd #Dispo -has been transferred to med-surg floor Visit type - Emergency Visit Emergency Visit: No - New Patient This patient is new to me today: No - Critical Care Critical Care patient: No
[2017-10-07] MEDS: CEFTRIAXONE 2 GM in DEXTROSE 5%-WATER 100 ML IVPB SCH (14:00)
[2017-10-07] MEDS ORDERED: DEXAMETHASONE 4 MG TABLET (FP) PO ONE (15:15)
--- NOTE | 2017-10-07 16:05 | CON.CARD ---
Consult Consult Specialty:: Cardiology Reason for Consultation:: Brain mass - History of Present Illness History of Present Illness: 62 M HTN and HLD with a remote history of colon cancer in 1994 sp ressection and chemotherapy. Admitted with seizure and noted to have a brain mass. He is post resection which showed a possible abscess vs liquefied necrosis. He has been afebrile. Had dental pain a few weeks ago and self medicated with analgesics. An echocardiogram showed normal LV function and no valvular pathology. ID suggesting KAYDEN to exclude endocarditis. - History Source History Provided By: Patient, Medical Record - Past Medical History Cardio/Vascular: Yes: HTN, Hyperlipdemia Gastrointestinal: Yes: Cancer (colon cancer in 1994) - Past Surgical History Past Surgical History: Yes: Colectomy (colon cancer resection in 1994) - Alcohol/Substance Use Hx Alcohol Use: No - Smoking History Smoking history: Never smoked Have you smoked in the past 12 months: No - Social History ADL: Independent History of Recent Travel: No Home Medications - Allergies Allergies/Adverse Reactions: Allergies Allergy/AdvReac Type Severity Reaction Status Date / Time No Known Allergies Allergy Verified 10/04/17 01:15 - Home Medications Home Medications: Ambulatory Orders Amlodipine Besylate/Benazepril [Lotrel 10-20 mg Capsule] 1 each PO DAILY Atorvastatin Ca [Lipitor] 80 mg PO HS 06/30/17 Hydrochlorothiazide [Hctz -] 12.5 mg PO DAILY 06/30/17 Family Disease History - Family Disease History Family Disease History: Other: Mother (colonic polyps ) Review of Systems - Review of Systems Constitutional: reports: No Symptoms Eyes: reports: No Symptoms HENT: reports: No Symptoms Neck: reports: No Symptoms Cardiovascular: reports: No Symptoms. denies: Chest Pain, Edema, Palpitations, Shortness of Breath Respiratory: denies: Cough, Exercise Intolerance Gastrointestinal: denies: Abdominal Pain, Bloating, Constipation Genitourinary: reports: No Symptoms Breasts: reports: No Symptoms Reported Musculoskeletal: reports: No Symptoms Vital Signs: Vital Signs Temperature 98.2 F 10/07/17 14:05 Pulse Rate 69 10/07/17 14:05 Respiratory Rate 18 10/07/17 14:05 Blood Pressure 156/71 10/07/17 14:05 O2 Sat by Pulse Oximetry (%) 94 L 10/06/17 21:00 Constitutional: Yes: Well Nourished, No Distress, Calm Eyes: Yes: Conjunctiva Clear, EOM Intact HENT: Yes: Atraumatic, Normocephalic Neck: Yes: Supple, Trachea Midline Respiratory: Yes: Regular, CTA Bilaterally Gastrointestinal: Yes: Normal Bowel Sounds, Soft Cardiovascular: Yes: Regular Rate and Rhythm JVD: No Carotid Bruit: No Heart Sounds: Yes: S1, S2 Murmur: Yes: Systolic Murmur (2/6 apical) Edema: No - Other Data Labs, Other Data: CBC, BMP 10/07/17 06:00 10/07/17 06:00 INR, PTT INR 1.12 (0.82-1.09) 10/04/17 01:16 NSR no STT changes. Problem List - Problems (1) Mass of brain Assessment/Plan: Negative cultures to date. ID suggesting KAYDEN to exclude endocarditis. Risk and benefits were discussed. Will arrange for monday. Keep NPO after midnight. Code(s): G93.9 - DISORDER OF BRAIN, UNSPECIFIED
[2017-10-07] MEDS: CHLORHEXIDINE GLUCONATE 4% CLEANSER FOR DECOLONIZATION TP SCH (21:17)
[2017-10-08] MEDS: HEPARIN NA (PORCINE) 5,000 UNITS/ML 1ML VIAL SQ SCH ×3 (06:13→21:36)
[2017-10-08] MEDS: INSULIN SLIDING SCALE (NOVOLOG) 1 VIAL SQ SCH ×3 (06:18→17:53)
[2017-10-08 08:46] LABS: BASO % 0.2 % (0-2.0); EOS % 0.3 % (0-4.5); HEMOGLOBIN 13.4 GM/dL (11.7-16.9); LYMPH % 23.3 % (8-40); MCH 30.9 pg (25.7-33.7); MCHC 35.2 g/dl (32.0-35.9); MEAN CELL VOLUME 87.8 fl (80-96); MEAN PLT VOLUME 11.3 fl (7.5-11.1); MONO % 7.3 % (3.8-10.2); NEUT % 68.9 % (42.8-82.8); PLATELET COUNT 190 K/MM3 (134-434); RBC 4.32 M/mm3 (4.00-5.60); RDW 12.5 % (11.9-15.9); WHITE BLOOD COUNT 8.5 K/mm3 (4.0-10.0)
[2017-10-08 08:53] LABS: CHLORIDE 108 mmol/L (98-107); POTASSIUM 4.1 mmol/L (3.5-5.1); SODIUM 140 mmol/L (136-145)
[2017-10-08 09:59] LABS: ANION GAP 7 (8-16); BLOOD UREA NITROGEN 13 mg/dL (7-18); CO2 25 mmol/L (21-32)
[2017-10-08 10:04] LABS: CALCIUM 8.4 mg/dL (8.5-10.1); CREATININE 0.7 mg/dL (0.7-1.3); GLUCOSE,RANDOM 134 mg/dL (74-106)
[2017-10-08] MEDS ORDERED: DEXTROSE 5%-WATER 100 ML IVPB ONE (10:15)
[2017-10-08] MEDS: levETIRAcetam 500 MG TABLET (FP) PO SCH ×2 (10:20→21:36)
[2017-10-08] MEDS: MUPIROCIN 2% TOPICAL OINTMENT FOR DECOLONIZATION NS SCH ×2 (10:20→21:37)
[2017-10-08] MEDS: PANTOPRAZOLE 40 MG TABLET (FP) PO SCH (10:21)
[2017-10-08] MEDS: CEFTRIAXONE 2 GM in DEXTROSE 5%-WATER 100 ML IVPB SCH (10:21)
--- NOTE | 2017-10-08 10:43 | PN ---
Progress Note, Physician History of Present Illness: doing well no new issues - Current Medication List Current Medications: Active Medications Chlorhexidine Gluconate (Hibiclens For Decolonization -) 1 applic TP HS [facility] Last Admin: 10/07/17 21:17 Dose: Not Given Fentanyl (Sublimaze Injection -) 50 mcg IVPUSH [id number] PRN PRN Reason: PAIN-PACU ORDER X 4 DOSES ONLY Heparin Sodium (Porcine) (Heparin -) 5,000 unit SQ TID [facility] Last Admin: 10/08/17 06:13 Dose: 5,000 unit Ceftriaxone Sodium 2 gm/ (Dextrose) 100 mls @ 200 mls/hr IVPB DAILY [facility] PRN Reason: Protocol Last Admin: 10/08/17 10:21 Dose: 200 mls/hr Metronidazole (Flagyl 500mg Premixed Ivpb -) 500 mg in 100 mls @ 100 mls/hr IVPB Q8H-IV [facility] Last Admin: 10/08/17 10:20 Dose: 100 mls/hr Insulin Aspart (Novolog Vial Sliding Scale -) 1 vial SQ ACHS [facility] PRN Reason: Protocol Last Admin: 10/08/17 06:18 Dose: Not Given Labetalol HCl (Normodyne Injection -) 10 mg IVPUSH [id number] PRN PRN Reason: HYPERTENSION Levetiracetam (Keppra -) 500 mg PO BID [facility] Last Admin: 10/08/17 10:20 Dose: 500 mg Mupirocin (Bactroban Ointment (For Decolonization) -) 1 applic NS BID [facility] Stop: 10/10/17 21:59 Last Admin: 10/08/17 10:20 Dose: Not Given Oxycodone HCl (Roxicodone -) 5 mg PO Q4H PRN PRN Reason: PAIN LEVEL 1-5 Oxycodone HCl (Roxicodone -) 10 mg PO Q4H PRN PRN Reason: PAIN LEVEL 6-10 Pantoprazole Sodium (Protonix -) 40 mg PO DAILY [facility] Last Admin: 10/08/17 10:21 Dose: 40 mg - Objective Vital Signs: Vital Signs Temperature 99 F 10/08/17 06:00 Pulse Rate 62 10/08/17 06:00 Respiratory Rate 18 10/08/17 06:00 Blood Pressure 162/75 10/08/17 06:00 O2 Sat by Pulse Oximetry (%) 94 L 10/07/17 21:00 Constitutional: Yes: No Distress, Calm Neck: Yes: Supple Cardiovascular: Yes: Regular Rate and Rhythm Respiratory: Yes: Regular, CTA Bilaterally Gastrointestinal: Yes: Normal Bowel Sounds, Soft Musculoskeletal: Yes: WNL Extremities: Yes: WNL Neurological: Yes: Alert, Oriented Psychiatric: Yes: Alert, Oriented Labs: CBC, BMP 10/08/17 07:30 10/08/17 07:30 INR, PTT INR 1.12 (0.82-1.09) 10/04/17 01:16 Assessment/Plan Seizure Brain Mass/Abscess Lung Nodule h/o Colon Ca HTN Hyperlipidemia bacteria cx now growing strep no anerobic growth plan continue ceftriaxone will stop flagyl wound care await for key will need abx for 3-4 weeks will also need dental check up will need to get species identification of the bacteria
--- NOTE | 2017-10-08 14:05 | PN ---
Progress Note, Physician Chief Complaint: No events. History of Present Illness: 62 M HTN and HLD with a remote history of colon cancer in 1994 sp ressection and chemotherapy. Admitted with seizure and noted to have a brain mass. He is post resection which showed a possible abscess vs liquefied necrosis. He has been afebrile. Had dental pain a few weeks ago and self medicated with analgesics. An echocardiogram showed normal LV function and no valvular pathology. ID suggesting KAYDEN to exclude endocarditis. - Current Medication List Current Medications: Active Medications Chlorhexidine Gluconate (Hibiclens For Decolonization -) 1 applic TP HS [facility] Last Admin: 10/07/17 21:17 Dose: Not Given Fentanyl (Sublimaze Injection -) 50 mcg IVPUSH [id number] PRN PRN Reason: PAIN-PACU ORDER X 4 DOSES ONLY Heparin Sodium (Porcine) (Heparin -) 5,000 unit SQ TID [facility] Last Admin: 10/08/17 06:13 Dose: 5,000 unit Ceftriaxone Sodium 2 gm/ (Dextrose) 100 mls @ 200 mls/hr IVPB DAILY [facility] PRN Reason: Protocol Last Admin: 10/08/17 10:21 Dose: 200 mls/hr Insulin Aspart (Novolog Vial Sliding Scale -) 1 vial SQ ACHS [facility] PRN Reason: Protocol Last Admin: 10/08/17 11:44 Dose: 2 units Labetalol HCl (Normodyne Injection -) 10 mg IVPUSH [id number] PRN PRN Reason: HYPERTENSION Levetiracetam (Keppra -) 500 mg PO BID [facility] Last Admin: 10/08/17 10:20 Dose: 500 mg Mupirocin (Bactroban Ointment (For Decolonization) -) 1 applic NS BID [facility] Stop: 10/10/17 21:59 Last Admin: 10/08/17 10:20 Dose: Not Given Oxycodone HCl (Roxicodone -) 5 mg PO Q4H PRN PRN Reason: PAIN LEVEL 1-5 Oxycodone HCl (Roxicodone -) 10 mg PO Q4H PRN PRN Reason: PAIN LEVEL 6-10 Pantoprazole Sodium (Protonix -) 40 mg PO DAILY [facility] Last Admin: 10/08/17 10:21 Dose: 40 mg - Objective Vital Signs: Vital Signs Temperature 99 F 10/08/17 06:00 Pulse Rate 62 05/20/18 06:00 Respiratory Rate 18 10/08/17 06:00 Blood Pressure 162/75 10/08/17 06:00 O2 Sat by Pulse Oximetry (%) 97 10/08/17 09:00 Constitutional: Yes: Well Nourished, No Distress Eyes: Yes: Conjunctiva Clear HENT: Yes: Atraumatic, Normocephalic Neck: Yes: Supple Cardiovascular: Yes: Regular Rate and Rhythm, S1, S2 Respiratory: Yes: Regular, CTA Bilaterally Edema: No Labs: CBC, BMP 10/08/17 07:30 10/08/17 07:30 INR, PTT INR 1.12 (0.82-1.09) 10/04/17 01:16 Problem List - Problems (1) Mass of brain Assessment/Plan: Positive Cx noted. KAYDEN for monday. Keep NPO after midnight. Code(s): G93.9 - DISORDER OF BRAIN, UNSPECIFIED (2) Hypertension Assessment/Plan: Add amlodipine 5mg qd Code(s): I10 - ESSENTIAL (PRIMARY) HYPERTENSION
[2017-10-08] MEDS: amLODIPine BESYLATE 5 MG TABLET (FP) PO SCH (14:42)
--- NOTE | 2017-10-08 15:24 | PN ---
Progress Note (short form) - Note Progress Note: Subjective: No fever or chills. No abd pain. R arm is better , but still feels different . no weakness. no visual changes Objective: Vital Signs: Vital Signs - 24 hr 10/07/17 10/07/17 10/08/17 21:00 22:00 06:00 Temperature 98.6 F 99 F Pulse Rate 68 62 Respiratory 18 18 18 Rate Blood Pressure 148/77 162/75 O2 Sat by Pulse 94 L Oximetry (%) 10/08/17 10/08/17 09:00 10:00 Temperature 98.7 F Pulse Rate 68 Respiratory 18 Rate Blood Pressure 156/74 O2 Sat by Pulse 97 Oximetry (%) Laboratory Results - last 24 hr 10/07/17 10/07/17 10/08/17 16:25 20:45 06:16 WBC RBC Hgb Hct MCV MCH MCHC RDW Plt Count MPV Neutrophils % Lymphocytes % Monocytes % Eosinophils % Basophils % Sodium Potassium Chloride Carbon Dioxide Anion Gap BUN Creatinine POC Glucometer 163 170 146 Random Glucose Calcium Vancomycin Pre-Dose 10/08/17 10/08/17 10/08/17 07:30 07:30 11:32 WBC 8.5 RBC 4.32 Hgb 13.4 Hct 38.0 MCV 87.8 MCH 30.9 MCHC 35.2 RDW 12.5 Plt Count 190 MPV 11.3 H Neutrophils % 68.9 D Lymphocytes % 23.3 D Monocytes % 7.3 Eosinophils % 0.3 D Basophils % 0.2 D Sodium 140 Potassium 4.1 Chloride 108 H Carbon Dioxide 25 Anion Gap 7 L BUN 13 Creatinine 0.7 POC Glucometer Random Glucose 134 H Calcium 8.4 L Vancomycin Pre-Dose < 0.800 L* 10/08/17 11:42 WBC RBC Hgb Hct MCV MCH MCHC RDW Plt Count MPV Neutrophils % Lymphocytes % Monocytes % Eosinophils % Basophils % Sodium Potassium Chloride Carbon Dioxide Anion Gap BUN Creatinine POC Glucometer 196 Random Glucose Calcium Vancomycin Pre-Dose physical Exam: NAD, AAox3 CV: RRR. 2/6 SM at RUSB, and 3/6 SM at apex. Lungs: CTAB Ext: no edema. scabbed abrasion on R givens Neuro : EOMI, round equal pupils , reactive to light , uvula and tongue at mid line . NL facial sensation . Strength 5/5 in upper and lower extremities, proximally and distally . sensation to light touch Nl. reflexes 2+ knee jerk, biceps bilaterally . ASSESSMENT AND PLAN: Pleasant 62 y/o gentleman with h/o colon cancer s/p resection and chemo, HTn, HLP, who presented with new onset seizure and was found to have a brain mass. 1- New onset seizure, due to brain mass - cont keppra BID - seizure precautions 2- Brain abscess: Bx is consistent with abscess. abscess cx with group A strep. ? dental source repeat Ct scan with postsurgical findings , and no epidural abscess found on MRI - D/W Dr. Balderrama. 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 - KAYDEN tomorrow. NPO after mid night 3- L lung mass. - will plan for a biopsy through IR tomorrow. hold sq heparin after MN 4- New diagnosis of DM. A1c 6.6. - SSI while on steroids - metformin as out pt 5- HTN: cont lisinopril and norvasc. resume HCTZ as BP is elevated. 6- DVT PX,heparin sq to be held after MN . Dispo : after all w/u is finished ( KAYDEN and lung bx ) can be discharged on home Abx or NH . to be discussed with patient Visit type - Emergency Visit Emergency Visit: Yes ED Registration Date: 10/04/17 Care time: The patient presented to the Emergency Department on the above date and was hospitalized for further evaluation of their emergent condition. - New Patient This patient is new to me today: No - Critical Care Critical Care patient: No
[2017-10-08] MEDS: CHLORHEXIDINE GLUCONATE 4% CLEANSER FOR DECOLONIZATION TP SCH (21:37)
[2017-10-09] MEDS: INSULIN SLIDING SCALE (NOVOLOG) 1 VIAL SQ SCH ×3 (06:09→16:41)
[2017-10-09] MEDS ORDERED: HYDROCHLOROTHIAZIDE 25 MG TABLET (FP) PO SCH (10:00)
[2017-10-09] MEDS ORDERED: DEXTROSE 5%-WATER 100 ML IVPB ONE (10:24)
[2017-10-09] MEDS ORDERED: PT OWN MED DRAWER 7, Y5N ONE (10:24)
[2017-10-09] MEDS: CEFTRIAXONE 2 GM in DEXTROSE 5%-WATER 100 ML IVPB SCH (10:30)
[2017-10-09] MEDS: MUPIROCIN 2% TOPICAL OINTMENT FOR DECOLONIZATION NS SCH ×2 (10:30→22:16)
[2017-10-09] MEDS: PANTOPRAZOLE 40 MG TABLET (FP) PO SCH (10:31)
[2017-10-09] MEDS: HYDROCHLOROTHIAZIDE 25 MG TABLET (FP) PO SCH (10:31)
[2017-10-09] MEDS: levETIRAcetam 500 MG TABLET (FP) PO SCH ×2 (10:31→22:15)
[2017-10-09] MEDS: amLODIPine BESYLATE 5 MG TABLET (FP) PO SCH (10:31)
--- NOTE | 2017-10-09 11:42 | PN ---
Teaching Attending Note Name of Resident: Luanne Collazo ATTENDING PHYSICIAN STATEMENT I saw and evaluated the patient. I reviewed the resident's note and discussed the case with the resident. I agree with the resident's findings and plan as documented. SUBJECTIVE: No fever or chills. No LUJAN , no change in vision. R upper extremity still feels different but no weakness. OBJECTIVE: NAD, AAox3 CV: RRR. 2/6 SM at RUSB, and 3/6 SM at apex. Lungs: CTAB Ext: no edema. scabbed abrasion on R givens Neuro: EOMI, round equal pupils , reactive to light , uvula and tongue at mid line . NL facial sensation . Strength 5/5 in upper and lower extremities, proximally and distally . sensation to light touch Nl. reflexes 2+ knee jerk, biceps bilaterally . nl nose to finger . No pronator drift ASSESSMENT AND PLAN: Pleasant 62 y/o gentleman with h/o colon cancer s/p resection and chemo, HTn, HLP, who presented with new onset seizure and was found to have a brain mass. 1- New onset seizure, due to brain mass - cont keppra BID 2- Brain abscess: Bx is consistent with abscess.cx with alpha hemolytic strep ? dental source - Cont ceftriaxone. - Will need abx for a prolonged period of time. - KAYDEN today. 3- L lung mass. - IR biopsy. 4- New diagnosis of DM. A1c 6.6. - SSI while on steroids - metformin as out pt 5- HTN: cont lisinopril , lisinopril and norvasc. 6- DVT PX,heparin on hold for KAYDEN and Bx Dispo : after all w/u is finished ( KAYDEN and lung bx ) . Pt chose Abx at home over NH. will update social work
[2017-10-09] MEDS ORDERED: LIDOCAINE VISCOUS 2% ORAL/TOP 20 ML UNIT-DOSE CUP ONE (11:58)
[2017-10-09] MEDS ORDERED: MIDAZOLAM HCL 2 MG/2 ML SINGLE DOSE VIAL ONE (12:17)
[2017-10-09] MEDS ORDERED: LIDOCAINE VISCOUS 2% ORAL/TOP 20 ML UNIT-DOSE CUP MM ONE (12:28)
--- NOTE | 2017-10-09 12:46 | PN ---
Progress Note (short form) - Note Progress Note: KAYDEN performed. Pt tolerated procedure well without complications. Full report to follow. Briefly no echocardiographic evidence of endocarditis. No vegetations seen. Keep NPO for 2 hours post procedure (until approx 1425) then check gag reflex, if gag positive can resume previous diet.
--- NOTE | 2017-10-09 13:14 | PN ---
Progress Note (short form) - Note Progress Note: Surgery POD #4 craniotomy with evacuation of abscess of unclear origin. Patient completed KAYDEN this morning, still awaiting final report. Patient is also scheduled for lung mass biopsy. Patient states he feels well with no new symptoms, he has been oob ambulating and tolerating his diet. He denies any CP, SOB, N/V/D Headache, fever or chills. Vital Signs Temp 98 F 10/09/17 12:45 Pulse 63 10/09/17 12:45 Resp 18 10/09/17 12:45 BP 140/70 10/09/17 12:45 Pulse Ox 98 10/09/17 12:45 Intake & Output 10/08/17 10/09/17 10/09/17 23:59 11:59 23:59 Intake Total 200 250 Output Total 300 700 Balance -100 -700 250 Intake: IV 250 IVPB 200 Output: Urine 300 700 Void 300 700 Other: Voiding Method Toilet Toilet # Unmeasured Voids Void 1 Bowel Movement No No CBC, BMP 10/08/17 07:30 10/08/17 07:30 PE: A&Ox3, NAD unlabored resp on RA No lid lag or facial droop. Incision C/D/I with edmund insitu, no d/c, no erythema, edema, collection or fluctuance Moving all extremities without restriction or limitation Preliminary KAYDEN suggest no vegitations seen Final blood cultures and pathology pending Problem List - Problems (1) Mass of brain Assessment/Plan: POD #4 evacuation of parietal lobe abscess of unclear origin. Awaiting lung mass biopsy. Doing well from Neuro perspective. 1) f/u pathology 2) f/u blood cultures 3) Keep SBP < 130 4) Continue Keppra 500mg BID 5) Continue DVT prophylaxis with B/l teds, scds and SQ heparin 6) IV ABX per Dr. العراقي- d/c planning 7) Dr. Duncan/Neurology following 8) Lung biopsy as scheduled 9) d/c planning for home on IV abx Evaluation and plan discussed with Dr Bryan Code(s): G93.9 - DISORDER OF BRAIN, UNSPECIFIED
--- NOTE | 2017-10-09 14:06 | PN ---
Progress Note, Physician History of Present Illness: doing well no new issues patient coming back from [place] - Current Medication List Current Medications: Active Medications Amlodipine Besylate (Norvasc -) 5 mg PO DAILY [facility] Last Admin: 10/09/17 10:31 Dose: 5 mg Chlorhexidine Gluconate (Hibiclens For Decolonization -) 1 applic TP HS [facility] Last Admin: 10/08/17 21:37 Dose: Not Given Fentanyl (Sublimaze Injection -) 50 mcg IVPUSH [id number] PRN PRN Reason: PAIN-PACU ORDER X 4 DOSES ONLY Heparin Sodium (Porcine) (Heparin -) 5,000 unit SQ TID [facility] Last Admin: 10/08/17 21:36 Dose: 5,000 unit Hydrochlorothiazide (Hctz -) 12.5 mg PO DAILY [facility] Last Admin: 10/09/17 10:31 Dose: 12.5 mg Ceftriaxone Sodium 2 gm/ (Dextrose) 100 mls @ 200 mls/hr IVPB DAILY [facility] PRN Reason: Protocol Last Admin: 10/09/17 10:30 Dose: 200 mls/hr Insulin Aspart (Novolog Vial Sliding Scale -) 1 vial SQ TIDAC [facility] PRN Reason: Protocol Last Admin: 10/09/17 11:36 Dose: Not Given Labetalol HCl (Normodyne Injection -) 10 mg IVPUSH [id number] PRN PRN Reason: HYPERTENSION Levetiracetam (Keppra -) 500 mg PO BID [facility] Last Admin: 10/09/17 10:31 Dose: 500 mg Mupirocin (Bactroban Ointment (For Decolonization) -) 1 applic NS BID [facility] Stop: 10/10/17 21:59 Last Admin: 10/09/17 10:30 Dose: Not Given Pantoprazole Sodium (Protonix -) 40 mg PO DAILY [facility] Last Admin: 10/09/17 10:31 Dose: 40 mg - Objective Vital Signs: Vital Signs Temperature 98 F 10/09/17 12:45 Pulse Rate 54 L 10/09/17 13:40 Respiratory Rate 18 10/09/17 13:40 Blood Pressure 132/67 10/09/17 13:40 O2 Sat by Pulse Oximetry (%) 97 10/09/17 13:40 Constitutional: Yes: No Distress, Calm Cardiovascular: Yes: Regular Rate and Rhythm Respiratory: Yes: Regular, CTA Bilaterally Gastrointestinal: Yes: Normal Bowel Sounds, Soft Musculoskeletal: Yes: WNL Extremities: Yes: WNL Neurological: Yes: Alert, Oriented Psychiatric: Yes: Alert, Oriented Labs: CBC, BMP 10/08/17 07:30 10/08/17 07:30 INR, PTT INR 1.12 (0.82-1.09) 10/04/17 01:16 Assessment/Plan Seizure Brain Mass/Abscess Lung Nodule h/o Colon Ca HTN Hyperlipidemia plan continue ceftriaxone as mentioned patient will need it for couple of weeks spoke with microbiology needs identification of the species rest continue current mgmt
--- NOTE | 2017-10-09 16:04 | PN ---
Physical Exam: SUBJECTIVE: Patient seen and examined at bedside. No acute events overnight. This morning, pt c/o mild RUE stiffness that is unchanged from Monday. KAYDEN performed in afternoon. Without other complaint, denies LUJAN, fever, chills, changes in vision, or changes in urinary or bowel function. OBJECTIVE: Vital Signs Period Temp Pulse Resp BP Sys/Gardiner Pulse Ox Last 24 Hr 97.8 F-98.8 F 52-63 18-20 102-147/64-80 96-98 GENERAL: The patient is awake, alert, and fully oriented, in no acute distress. Resting comfortably HEAD: +edmund- healing well, without serosanguineous drainage EYES: PERRL, extraocular movements intact, sclera anicteric, conjunctiva clear. No ptosis. ENT: Ears normal, nares patent, oropharynx clear without exudates, moist mucous membranes NECK: Trachea midline,supple. LUNGS: Breath sounds equal, clear to auscultation bilaterally, no wheezes, no crackles, no accessory muscle use. HEART: Regular rate and rhythm, S1, S2 without murmur, rub or gallop. ABDOMEN: Soft, nontender, nondistended, normoactive bowel sounds, no guarding EXTREMITIES: 2+ posterior tibial pulses, warm, well-perfused, no edema. NEUROLOGICAL: Cranial nerves II through XII grossly intact. Normal speech, without facial asymmetry. 5/5 motor strength in LUE, LLE, RLE, however 4/5 in RUE. Sensation intact throughout. Uvula midline. 2+ patellar, bicep reflexes PSYCH: Normal mood, normal affect. SKIN: Warm, dry, normal turgor Laboratory Results - last 24 hr 10/08/17 10/08/17 10/09/17 17:41 21:26 05:28 POC Glucometer 188 190 135 Active Medications Generic Name Dose Route Start Last Admin Trade Name Freq PRN Reason Stop Dose Admin Amlodipine Besylate 5 mg 10/08/17 14:15 10/09/17 10:31 Norvasc - PO 5 mg DAILY [facility]FF[facility] Administration Chlorhexidine Gluconate 1 applic 10/05/17 22:00 10/08/17 21:37 Hibiclens For Decolonization - TP Not Given HS TIFFANIE Fentanyl 50 mcg 10/05/17 16:35 Sublimaze Injection - IVPUSH [id number] PRN PAIN-PACU ORDER X 4 DOSES ONLY Heparin Sodium (Porcine) 5,000 unit 10/07/17 22:00 10/08/17 21:36 Heparin - SQ 5,000 unit TID TIFFANIE Administration Hydrochlorothiazide 12.5 mg 10/09/17 10:00 10/09/17 10:31 Hctz - PO 12.5 mg DAILY TIFF[facility] Administration Ceftriaxone Sodium 2 gm/ 100 mls @ 200 mls/hr 10/07/17 11:30 10/09/17 10:30 Dextrose IVPB 200 mls/hr DAILY [facility] Administration Protocol Insulin Aspart 1 vial 10/08/17 16:30 10/09/17 11:36 Novolog Vial Sliding Scale - SQ Not Given TIDAC [facility] Protocol Labetalol HCl 10 mg 10/05/17 15:01 Normodyne Injection - IVPUSH [id number] PRN HYPERTENSION Levetiracetam 500 mg 10/05/17 22:00 10/09/17 10:31 Keppra - PO 500 mg BID [facility]FF[facility] Administration Mupirocin 1 applic 10/05/17 22:00 10/09/17 10:30 Bactroban Ointment (For Decolonization) - NS 10/10/17 21:59 Not Given BID TIFFANIE Pantoprazole Sodium 40 mg 10/06/17 10:00 10/09/17 10:31 Protonix - PO 40 mg DAILY TIFF[facility] Administration IMAGING 10/04/17: CXR: shallow inspiration. No evidence of widening of superior mediastinum. The heart is borderline enlarged. Normal contous of the thoracic aorta. Normal aeration of the right lung. The right diaphragm is slightly elevated. No pneumothorax, or large pleural effusion is seen. No evidence of CHF. 10/04/17: Head CT without contrast: vasogenic edema of the left posterior frontal /parietal high convexity with questionable poorly visualized lesion measuring 1.7cm for which correlation with contrast-enhanced MRI of the brain recommended 10/04/17: Abd/pelvis CT: peripheral LLL mass, can't exclude malignancy. need core biopsy, PET/CT. no pathology noted in chest, abdomen, pelvis. 10/05/17: Brain MRI: 2cm L posterior parietal sorto matter mass lesion- high signal intensity T1, infectious or metastatic with perifocal edema. 10/05/17: Repeat brain MRI after surgery: irregular peripheral enhancement medial , inferior margin. can't r/o residual tumor 10/06/17: ECHO: EF 63.4%, mild AR, MR, MN, without vegetations 10/06/17: Head CT non-con: subsequent to prior study s/p resection of L parietal lobe with post surgical changes seen at the craniotomy site and also anterior including edema and air and a single focus of increased density perhaps representing a focal intracerebral hemorrhage; less than 1cm in size. no evidence of midline shift 10/06/17: L-spine w/contrast: w/o epidural abscess . lishthesis with bilateral spondylolysis - severe b/l foraminal stenosis on L5 nerve roots, small L paracentral disc protrusion L4-L5 10/06/17: C-spine, T-spine w/contrast: no epidural abscess noted, 3.1cm opacity L lung PNA vs. neoplastic dz Microbiology 10/05/17 22:15 Blood - Arterial Blood Parasites Smear (ELIN) - Final 10/05/17 14:45 Abscess Gram Stain - Final 10/05/17 14:45 Abscess Anaerobic Culture - Final NO ANAEROBES WERE ISOLATED 10/05/17 14:45 Abscess AFB Smear Concentration - Final 10/05/17 13:14 Head Gram Stain - Final 10/05/17 16:40 Blood - Peripheral Venous Blood Culture - Preliminary NO GROWTH OBTAINED AFTER 72 HOURS, INCUBATION TO CONTINUE FOR 2 DAYS. 10/05/17 16:40 Blood - Peripheral Venous Blood Culture - Preliminary NO GROWTH OBTAINED AFTER 72 HOURS, INCUBATION TO CONTINUE FOR 2 DAYS. 10/05/17 14:45 Abscess Mycobacterial Culture - Preliminary 10/05/17 14:45 Abscess ZULY Preparation - Preliminary 10/05/17 14:45 Abscess Fungal Culture - Preliminary 10/05/17 14:45 Abscess Body Fluid Culture - Preliminary Alpha Hemolytic Streptococcus ASSESSMENT/PLAN: 62 y/o M with PMH HTN, HLD, hx colon CA (resected 1994), BIBEMS for new onset seizure. Pt found to have 3.4x2.2cm edema in L parietal lobe likely vasogenic 2/ 2 underlying 1.7cm mass. #1.7 cm L parietal lobe mass, possible mets 2/2 lung CA Craniotomy with parietal lobe evacuation of intracranial abscess- PO Day 4 -Pt with abscess noted during procedure, may be liquefactive necrosis from CA/ tumor, or may be infectious abscess -ECHO without any noted vegetations -Cardio -KAYDEN has been completed, without vegetations -abcess cx: (+) alpha hemolytic strep, possibly dental, ear, meningeal source -Blood cx (-) NGTD -completed vanco 1.25 g, zosyn 3.375 q8h IVPB qd x 2 days -changed to ceftriaxone 2gm IVPB qd (today is Day 3), flagyl has been d/c -continue Keppra 500 mg PO BID for sz PPX -Neurology- Dr. Duncan -Neurosurgery- Dr. Bryan -ID- Dr. Balderrama -Dexamethasone 4mg PO q6h - has been d/c -continue neurochecks q4h -incentive spirometry -BP goal SBP <130 -pain control- roxicodone 5mg q4 PRN, with 10mg q4 PRN for higher intensity #New RUE stiffness-resolved -Stat Head CT non-con - edema and air, single focus of increased density perhaps representing a focal intracerebral hemorrhage; less than 1 cm in size. no midline shift; d/w Dr. Bryan no need for intervention at this time, can continue hep SQ DVT ppx -C, T, L-spine - has r/o epidural abscess #peripheral LLL mass -will likely need CT guided lung bx -IR. Prior will need PET scan -will d/w heme-onc; whether pt will get PET before lung bx -pulm consult-Dr. Mejía #New onset seizure, likely 2/2 parietal lobe mass -Keppra 500mg PO BID for sz prophylaxis -seizure precautions, padding #Hx colon CA (resected 1994) -June colonoscopy - WNL; results obtained from [facility] -Heme-onc consult - Dr. Smith -CEA-WNL ; will need to obtain past CEA report #HTN-currently controlled -Continue lisinopril 40 mg PO qd -amlodipine 10mg PO qd -started back on HCTZ 12.5 mg PO qd #New DM -may be exacerbated by steroids -A1c 6.6 -ISS ACHS -BGM -will likely start on metformin as outpt if renal fnc, GFR permits #HLD -Continue lipitor 80 mg PO qHS #F/E/N -IVF have been d/c -continue to follow lytes -sodium controlled diet #PPX -Hep 5000 SQ TID will hold until tomorrow afternoon 4pm- will change based on whether for PET or IR bx -GI: protonix 40mg PO qd #Dispo -to be sent home in next few days after testing with IV abx course for 3-4 weeks can be given at home with assistance or VNS Visit type - Emergency Visit Emergency Visit: No - New Patient This patient is new to me today: No - Critical Care Critical Care patient: No
[2017-10-09] MEDS: CHLORHEXIDINE GLUCONATE 4% CLEANSER FOR DECOLONIZATION TP SCH (22:16)
[2017-10-10] MEDS: INSULIN SLIDING SCALE (NOVOLOG) 1 VIAL SQ SCH ×3 (06:09→17:45)
[2017-10-10 08:13] LABS: BASO % 0.3 % (0-2.0); HEMATOCRIT 40.6 % (35.4-49); HEMOGLOBIN 14.3 GM/dL (11.7-16.9); LYMPH % 28.8 % (8-40); MCH 30.8 pg (25.7-33.7); MCHC 35.2 g/dl (32.0-35.9); MEAN CELL VOLUME 87.5 fl (80-96); MEAN PLT VOLUME 10.6 fl (7.5-11.1); MONO % 9.3 % (3.8-10.2); NEUT % 60.6 % (42.8-82.8); PLATELET COUNT 202 K/MM3 (134-434); RBC 4.63 M/mm3 (4.00-5.60); RDW 12.4 % (11.9-15.9); WHITE BLOOD COUNT 7.3 K/mm3 (4.0-10.0)
[2017-10-10 08:43] LABS: CHLORIDE 105 mmol/L (98-107); POTASSIUM 5.1 mmol/L (3.5-5.1); SODIUM 139 mmol/L (136-145)
[2017-10-10 09:47] LABS: BLOOD UREA NITROGEN 16 mg/dL (7-18); CALCIUM 9.2 mg/dL (8.5-10.1); CREATININE 1.1 mg/dL (0.7-1.3); GLUCOSE,RANDOM 131 mg/dL (74-106)
[2017-10-10 09:57] LABS: ANION GAP 7 (8-16); CO2 27 mmol/L (21-32)
[2017-10-10] MEDS ORDERED: DEXTROSE 5%-WATER 100 ML IVPB ONE (10:21)
[2017-10-10] MEDS: CEFTRIAXONE 2 GM in DEXTROSE 5%-WATER 100 ML IVPB SCH (10:53)
[2017-10-10] MEDS: HYDROCHLOROTHIAZIDE 25 MG TABLET (FP) PO SCH (10:54)
[2017-10-10] MEDS: amLODIPine BESYLATE 5 MG TABLET (FP) PO SCH (10:54)
[2017-10-10] MEDS: levETIRAcetam 500 MG TABLET (FP) PO SCH ×2 (10:54→22:44)
[2017-10-10] MEDS: PANTOPRAZOLE 40 MG TABLET (FP) PO SCH (10:54)
--- NOTE | 2017-10-10 12:35 | PN ---
Teaching Attending Note Name of Resident: Luanne Collazo ATTENDING PHYSICIAN STATEMENT I saw and evaluated the patient. I reviewed the resident's note and discussed the case with the resident. I agree with the resident's findings and plan as documented. SUBJECTIVE: no fever or chills, no weakness, numbness or tingling OBJECTIVE: NAD, AAox3 CV: RRR. 2/6 SM at RUSB, and 3/6 SM at apex. Lungs: CTAB Ext: no edema. scabbed abrasion on R givens Neuro: EOMI, round equal pupils , reactive to light , uvula and tongue at mid line . NL facial sensation . Strength 5/5 in upper and lower extremities, proximally and distally . sensation to light touch Nl. reflexes 2+ knee jerk, biceps bilaterally . nl nose to finger . No pronator drift clean wound on scalp with edmund ASSESSMENT AND PLAN: Pleasant 62 y/o gentleman with h/o colon cancer s/p resection and chemo, HTn, HLP, who presented with new onset seizure and was found to have a brain mass. 1- New onset seizure, due to brain mass - cont keppra BID 2- Brain abscess: - Cont ceftriaxone. - Will need abx for a prolonged period of time. - will d/w Id exact duration - PICC line hopefully tomorrow 3- L lung mass. d/w Heme and Pulm. Recs for out pt Bx after PET scan f/u with ONC as out pt f/u with Pulm 4- New diagnosis of DM. A1c 6.6. - SSI while on steroids - metformin as out pt 5- HTN: cont , lisinopril , HCTZ and norvasc. 6- DVT PX,resume heparin sq Dispo : possible home with home Abx tomorrow d/w CM needs PICC
--- NOTE | 2017-10-10 13:33 | PN ---
Progress Note, Physician History of Present Illness: patient doing well no new issues - Current Medication List Current Medications: Active Medications Amlodipine Besylate (Norvasc -) 5 mg PO DAILY [facility] Last Admin: 10/10/17 10:54 Dose: 5 mg Heparin Sodium (Porcine) (Heparin -) 5,000 unit SQ TID [facility] Hydrochlorothiazide (Hctz -) 12.5 mg PO DAILY [facility] Last Admin: 10/10/17 10:54 Dose: 12.5 mg Ceftriaxone Sodium 2 gm/ (Dextrose) 100 mls @ 200 mls/hr IVPB DAILY [facility] PRN Reason: Protocol Last Admin: 10/10/17 10:53 Dose: 200 mls/hr Insulin Aspart (Novolog Vial Sliding Scale -) 1 vial SQ TIDAC [facility] PRN Reason: Protocol Last Admin: 10/10/17 12:25 Dose: Not Given Labetalol HCl (Normodyne Injection -) 10 mg IVPUSH [id number] PRN PRN Reason: HYPERTENSION Levetiracetam (Keppra -) 500 mg PO BID [facility] Last Admin: 10/10/17 10:54 Dose: 500 mg Pantoprazole Sodium (Protonix -) 40 mg PO DAILY [facility] Last Admin: 10/10/17 10:54 Dose: 40 mg - Objective Vital Signs: Vital Signs Temperature 98.2 F 10/10/17 10:00 Pulse Rate 54 L 10/10/17 10:00 Respiratory Rate 16 10/10/17 10:00 Blood Pressure 141/74 10/10/17 10:00 O2 Sat by Pulse Oximetry (%) 97 10/09/17 21:00 Constitutional: Yes: No Distress, Calm Cardiovascular: Yes: Regular Rate and Rhythm Respiratory: Yes: Regular, CTA Bilaterally Gastrointestinal: Yes: Normal Bowel Sounds, Soft Musculoskeletal: Yes: WNL Extremities: Yes: WNL Wound/Incision: Yes: Dressing Dry and Intact Neurological: Yes: Alert, Oriented Psychiatric: Yes: Alert, Oriented Labs: CBC, BMP 10/10/17 07:00 10/10/17 07:30 INR, PTT INR 1.12 (0.82-1.09) 10/04/17 01:16 Assessment/Plan Seizure Brain Mass/Abscess Lung Nodule h/o Colon Ca HTN Hyperlipidemia plan continue ceftriaxone rest continue current mgmt 3 more weeks of iv abx wound care
[2017-10-10] MEDS ORDERED: PICC LINE 8 ML FLUSH PROTOCOL IVPUSH PRN (14:54)
[2017-10-10] MEDS: HEPARIN NA (PORCINE) 5,000 UNITS/ML 1ML VIAL SQ SCH ×2 (15:31→22:45)
--- NOTE | 2017-10-10 20:55 | PN ---
Physical Exam: SUBJECTIVE: Patient seen and examined at bedside. No acute events overnight. Today, pt without complaint. States that he is feeling well and ready to go home. Discussed PICC line and IV abx, questions answered. Denies LUJAN, fever, chills, SOB, chest pain, or changes in urinary or bowel function. OBJECTIVE: Vital Signs Period Temp Pulse Resp BP Sys/Gardiner Pulse Ox Last 24 Hr 97.8 F-98.2 F 54-89 16-20 122-141/68-78 97-97 GENERAL: The patient is lying down comfortably in bed. awake, alert, and fully oriented, in no acute distress. HEAD: +edmund without drainage, clean and intact EYES: PERRL, extraocular movements intact, sclera anicteric, conjunctiva clear. No ptosis. No facial asymmetry ENT: Ears normal, nares patent, oropharynx clear without exudates, moist mucous membranes. NECK: Trachea midline, supple. LUNGS: Breath sounds equal, clear to auscultation bilaterally, no wheezes, no crackles, no accessory muscle use. HEART: Regular rate and rhythm, S1, S2 without rub or gallop. +mitral systolic murmur ABDOMEN: Soft, nontender, nondistended, normoactive bowel sounds, no guarding, no rebound EXTREMITIES: 2+ pt, dp pulses, warm, well-perfused, no edema. NEUROLOGICAL: Cranial nerves II through XII grossly intact. no facial asymmetry. uvula midline, motor strength 5/5 in upper and lower extremities, with sensation intact. +cerebellar fnc intact PSYCH: Normal mood, normal affect. SKIN: Warm, dry, normal turgor Laboratory Results - last 24 hr 10/10/17 10/10/17 10/10/17 05:46 07:00 07:30 WBC 7.3 RBC 4.63 Hgb 14.3 Hct 40.6 MCV 87.5 MCH 30.8 MCHC 35.2 RDW 12.4 Plt Count 202 MPV 10.6 Neutrophils % 60.6 Lymphocytes % 28.8 D Monocytes % 9.3 Eosinophils % 1.0 D Basophils % 0.3 Nucleated RBC % 0 Sodium 139 Potassium 5.1 D Chloride 105 Carbon Dioxide 27 Anion Gap 7 L BUN 16 D Creatinine 1.1 D POC Glucometer 141 Random Glucose 131 H Calcium 9.2 Active Medications Generic Name Dose Route Start Last Admin Trade Name Freq PRN Reason Stop Dose Admin Amlodipine Besylate 5 mg 10/08/17 14:15 10/10/17 10:54 Norvasc - PO 5 mg DAILY TIFF[facility]IE Administration Heparin Sodium (Porcine) 5,000 unit 10/10/17 14:00 10/10/17 15:31 Heparin - SQ 5,000 unit TID TIFFANIE Administration Hydrochlorothiazide 12.5 mg 10/09/17 10:00 10/10/17 10:54 Hctz - PO 12.5 mg DAILY TIFFANIE Administration IV Flush 8 ml 10/10/17 14:54 Picc Line Flush IVPUSH PRN PRN Protocol Ceftriaxone Sodium 2 gm/ 100 mls @ 200 mls/hr 10/07/17 11:30 10/10/17 10:53 Dextrose IVPB 200 mls/hr DAILY TIFF[facility]IE Administration Protocol Insulin Aspart 1 vial 10/08/17 16:30 10/10/17 17:45 Novolog Vial Sliding Scale - SQ 2 units TIDAC [facility]FF[facility] Administration Protocol Labetalol HCl 10 mg 10/05/17 15:01 Normodyne Injection - IVPUSH [id number] PRN HYPERTENSION Levetiracetam 500 mg 10/05/17 22:00 10/10/17 10:54 Keppra - PO 500 mg BID TIFFANIE Administration Pantoprazole Sodium 40 mg 10/06/17 10:00 10/10/17 10:54 Protonix - PO 40 mg DAILY TIFFANIE Administration IMAGING 10/04/17: CXR: shallow inspiration. No evidence of widening of superior mediastinum. The heart is borderline enlarged. Normal contous of the thoracic aorta. Normal aeration of the right lung. The right diaphragm is slightly elevated. No pneumothorax, or large pleural effusion is seen. No evidence of CHF. 10/04/17: Head CT without contrast: vasogenic edema of the left posterior frontal /parietal high convexity with questionable poorly visualized lesion measuring 1.7cm for which correlation with contrast-enhanced MRI of the brain recommended 10/04/17: Abd/pelvis CT: peripheral LLL mass, can't exclude malignancy. need core biopsy, PET/CT. no pathology noted in chest, abdomen, pelvis. 10/05/17: Brain MRI: 2cm L posterior parietal sorto matter mass lesion- high signal intensity T1, infectious or metastatic with perifocal edema. 10/05/17: Repeat brain MRI after surgery: irregular peripheral enhancement medial , inferior margin. can't r/o residual tumor 10/06/17: ECHO: EF 63.4%, mild AR, MR, MS, without vegetations 10/06/17: Head CT non-con: subsequent to prior study s/p resection of L parietal lobe with post surgical changes seen at the craniotomy site and also anterior including edema and air and a single focus of increased density perhaps representing a focal intracerebral hemorrhage; less than 1cm in size. no evidence of midline shift 10/06/17: L-spine w/contrast: w/o epidural abscess . lishthesis with bilateral spondylolysis - severe b/l foraminal stenosis on L5 nerve roots, small L paracentral disc protrusion L4-L5 10/06/17: C-spine, T-spine w/contrast: no epidural abscess noted, 3.1cm opacity L lung PNA vs. neoplastic dz Microbiology 10/05/17 22:15 Blood - Arterial Blood Parasites Smear (ELIN) - Final 10/05/17 16:40 Blood - Peripheral Venous Blood Culture - Final NO GROWTH AFTER 5 DAYS INCUBATION 10/05/17 16:40 Blood - Peripheral Venous Blood Culture - Final NO GROWTH AFTER 5 DAYS INCUBATION 10/05/17 14:45 Abscess Gram Stain - Final 10/05/17 14:45 Abscess Anaerobic Culture - Final Streptococcus Constellatus NO ANAEROBES WERE ISOLATED 10/05/17 14:45 Abscess AFB Smear Concentration - Final 10/05/17 13:14 Head Gram Stain - Final 10/05/17 14:45 Abscess Mycobacterial Culture - Preliminary 10/05/17 14:45 Abscess ZULY Preparation - Preliminary 10/05/17 14:45 Abscess Fungal Culture - Preliminary ASSESSMENT/PLAN: 62 y/o M with PMH HTN, HLD, hx colon CA (resected 1994), BIBEMS for new onset seizure. Pt found to have 3.4x2.2cm edema in L parietal lobe likely vasogenic 2/ 2 underlying 1.7cm mass. #1.7 cm L parietal lobe mass, possible mets 2/2 lung CA Craniotomy with parietal lobe evacuation of intracranial abscess- PO Day 5 -Pt with abscess noted during procedure, may be liquefactive necrosis from CA/ tumor, or may be infectious abscess -ECHO without any noted vegetations -Cardio -KAYDEN has been completed, without vegetations -abcess cx: (+) alpha hemolytic strep, possibly dental, ear, meningeal source -Blood cx (-) NGTD -completed vanco 1.25 g, zosyn 3.375 q8h IVPB qd x 2 days -changed to ceftriaxone 2gm IVPB qd (today is Day 4), flagyl has been d/c. Will need 3 additional wks abx -PICC line - to be placed tomorrow -continue Keppra 500 mg PO BID for sz PPX -Neurology- Dr. Duncan -Neurosurgery- Dr. Bryan -ID- Dr. Balderrama -Dexamethasone 4mg PO q6h - has been d/c -continue neurochecks q4h -incentive spirometry -BP goal SBP <130 -pain control- roxicodone 5mg q4 PRN, with 10mg q4 PRN for higher intensity #New RUE stiffness-resolved -Stat Head CT non-con - edema and air, single focus of increased density perhaps representing a focal intracerebral hemorrhage; less than 1 cm in size. no midline shift; d/w Dr. Bryan no need for intervention at this time, can continue hep SQ DVT ppx -C, T, L-spine - has r/o epidural abscess #peripheral LLL mass -will likely need CT guided lung bx -IR. Prior will need PET scan -will d/w heme-onc; outpt bx after PET scan -F/u onc outpt -F/u pulm outpt -pulm consult-Dr. Mejía #New onset seizure, likely 2/2 parietal lobe mass -Keppra 500mg PO BID for sz prophylaxis -seizure precautions, padding #Hx colon CA (resected 1994) -June colonoscopy - WNL; results obtained from [facility] -Heme-onc consult - Dr. Smith -CEA-WNL ; will need to obtain past CEA report #HTN-currently controlled -Continue lisinopril 40 mg PO qd -amlodipine 10mg PO qd -started back on HCTZ 12.5 mg PO qd #New DM -may be exacerbated by steroids -A1c 6.6 -ISS ACHS -BGM -will likely start on metformin as outpt if renal fnc, GFR permits #HLD -Continue lipitor 80 mg PO qHS #F/E/N -IVF have been d/c -continue to follow lytes -sodium controlled diet #PPX -Hep 5000 SQ TID -GI: protonix 40mg PO qd #Dispo for possible d/c home tomorrow on IV abx via PICC rocephin 2gm IVPB qd x 3 additional wks paperwork has been filled out Visit type - Emergency Visit Emergency Visit: No - New Patient This patient is new to me today: No - Critical Care Critical Care patient: No
[2017-10-11] MEDS: INSULIN SLIDING SCALE (NOVOLOG) 1 VIAL SQ SCH ×2 (07:11→11:16)
[2017-10-11 07:59] LABS: BASO % 0.5 % (0-2.0); EOS % 1.3 % (0-4.5); HEMATOCRIT 39.6 % (35.4-49); LYMPH % 31.4 % (8-40); MCH 30.9 pg (25.7-33.7); MCHC 35.3 g/dl (32.0-35.9); MEAN CELL VOLUME 87.5 fl (80-96); MEAN PLT VOLUME 10.9 fl (7.5-11.1); NEUT % 56.8 % (42.8-82.8); PLATELET COUNT 238 K/MM3 (134-434); RBC 4.53 M/mm3 (4.00-5.60); RDW 12.8 % (11.9-15.9); WHITE BLOOD COUNT 6.3 K/mm3 (4.0-10.0)
[2017-10-11] MEDS: HEPARIN NA (PORCINE) 5,000 UNITS/ML 1ML VIAL SQ SCH ×2 (08:04→15:14)
[2017-10-11 08:34] LABS: CHLORIDE 105 mmol/L (98-107); POTASSIUM 4.7 mmol/L (3.5-5.1); SODIUM 140 mmol/L (136-145)
[2017-10-11 08:38] LABS: ANION GAP 8 (8-16); BLOOD UREA NITROGEN 16 mg/dL (7-18); CO2 27 mmol/L (21-32); CREATININE 0.9 mg/dL (0.7-1.3); GLUCOSE,RANDOM 131 mg/dL (74-106)
[2017-10-11 08:48] LABS: MAGNESIUM 2.2 mg/dL (1.8-2.4); PHOSPHOROUS 3.6 mg/dL (2.5-4.9)
--- NOTE | 2017-10-11 09:37 | PN ---
Progress Note (short form) - Note Progress Note: 62 yr old man with HTN, HLD, hx of colon ca(resection in 1994, recent colonoscopy 2-3 months ago without pathology) BIBEMS for new onset seizure. Pt was in ED earlier yesterday (10/03 4pm) for numbness in his lower right leg, after waiting 4 hours to be seen, he left BME. At home his son notes changes his is ability to move, pt has difficulty standing, worsening of his right leg numbness that now extended to his right torso. as they walked him to the car, he began to stiffen and tremble, by the time they got to the car his face was also affected with his mouth having turned down corners. the episode lasted 2- 3mins, he continued to have difficulty controlling this right side. He had a witnessed jacksonian seizure in the ED. during both episodes pt was conversant, alert, awake, no loss of bowel function , no post-ictal state. CT HD IMPRESSION: Vasogenic edema in the left posterior frontal/parietal high convexity with questionable poorly visualized lesion measuring 1.7 cm for which correlation with contrast-enhanced MRI of the brain is recommended MRI BRAIN IMPRESSION: Status post surgical resection of previously visualized left parietal high convexity enhancing mass lesion. There is irregular peripheral enhancement of the surgical bed mainly along its medial and inferior margin, cannot rule out residual tumor. Moderate surrounding vasogenic edema is again seen. Continued close follow-up is recommended FU : POD #4-- abscess of unknown etiology mild RUE drift no LUJAN or neck stiffness awaits pICC - History Source History Provided By: Patient, Medical Record - Alcohol/Substance Use Hx Alcohol Use: No - Smoking History Smoking history: Never smoked Have you smoked in the past 12 months: No Home Medications - Allergies Allergies/Adverse Reactions: Allergies Allergy/AdvReac Type Severity Reaction Status Date / Time No Known Allergies Allergy Verified 10/04/17 01:15 - Home Medications Home Medications: Ambulatory Orders Amlodipine Besylate/Benazepril [Lotrel 10-20 mg Capsule] 1 each PO DAILY Atorvastatin Ca [Lipitor] 80 mg PO HS 06/30/17 Hydrochlorothiazide [Hctz -] 12.5 mg PO DAILY 06/30/17 Physical Exam-Neuro Vital Signs: Vital Signs Temperature 98.3 F 10/11/17 06:00 Pulse Rate 62 10/11/17 06:00 Respiratory Rate 20 10/11/17 06:00 Blood Pressure 124/64 10/11/17 06:00 O2 Sat by Pulse Oximetry (%) 97 10/10/17 21:00 Constitutional: Yes: Well Nourished, No Distress Labs: CBCD WBC 6.3 K/mm3 (4.0-10.0) 10/11/17 07:00 RBC 4.53 M/mm3 (4.00-5.60) 10/11/17 07:00 Hgb 14.0 GM/dL (11.7-16.9) 10/11/17 07:00 Hct 39.6 % (35.4-49) 10/11/17 07:00 MCV 87.5 fl (80-96) 10/11/17 07:00 MCHC 35.3 g/dl (32.0-35.9) 10/11/17 07:00 RDW 12.8 % (11.9-15.9) 10/11/17 07:00 Plt Count 238 K/MM3 (134-434) 10/11/17 07:00 MPV 10.9 fl (7.5-11.1) 10/11/17 07:00 CMP Sodium 140 mmol/L (136-145) 10/11/17 07:00 Potassium 4.7 mmol/L (3.5-5.1) 10/11/17 07:00 Chloride 105 mmol/L (98-107) 10/11/17 07:00 Carbon Dioxide 27 mmol/L (21-32) 10/11/17 07:00 Anion Gap 8 (8-16) 10/11/17 07:00 BUN 16 mg/dL (7-18) 10/11/17 07:00 Creatinine 0.9 mg/dL (0.7-1.3) 10/11/17 07:00 Creat Clearance w eGFR > 60 (>60) 10/07/17 06:00 Calcium 9.0 mg/dL (8.5-10.1) 10/11/17 07:00 Total Bilirubin 0.7 mg/dL (0.2-1.0) D 10/07/17 06:00 AST 11 U/L (15-37) L 10/07/17 06:00 ALT 17 U/L (12-78) D 10/07/17 06:00 Alkaline Phosphatase 70 U/L (45-117) D 10/07/17 06:00 Total Protein 5.9 g/dl (6.4-8.2) L 10/07/17 06:00 Albumin 2.9 g/dl (3.4-5.0) L D 10/07/17 06:00 - Neuro Exam Level Of Consciousness: Yes: Alert, Oriented to Person (EOMI, VFF, no aphasia , no facial, motor 5/5 except RUE drift reflexes symmetric ) Imaging - Results Cat Scan: Report Reviewed, Image Reviewed Problem List - Problems (1) Mass of brain Code(s): G93.9 - DISORDER OF BRAIN, UNSPECIFIED (2) Seizure Code(s): R56.9 - UNSPECIFIED CONVULSIONS Assessment/Plan 62 yr old man with HTN, HLD, hx of colon ca(resection in 1994, recent colonoscopy 2-3 months ago without pathology) with new onset focal seizure found to have Left parietal brain lesion --abscess vs CA , abscess cx: (+) alpha hemolytic strep, possibly dental, ear, meningeal source ECHO (-) for vegetations on ABX , awaits PICC lung Biopsy outpt continue [facility] neuro stable DR OLSON Problem List - Problems (1) Mass of brain Code(s): G93.9 - DISORDER OF BRAIN, UNSPECIFIED (2) Seizure Code(s): R56.9 - UNSPECIFIED CONVULSIONS
[2017-10-11] MEDS ORDERED: PT OWN MED DRAWER 7, Y5N ONE (10:08)
[2017-10-11] MEDS ORDERED: DEXTROSE 5%-WATER 100 ML IVPB ONE (10:08)
[2017-10-11] MEDS: amLODIPine BESYLATE 5 MG TABLET (FP) PO SCH (10:13)
[2017-10-11] MEDS: CEFTRIAXONE 2 GM in DEXTROSE 5%-WATER 100 ML IVPB SCH (10:13)
[2017-10-11] MEDS: HYDROCHLOROTHIAZIDE 25 MG TABLET (FP) PO SCH (10:13)
[2017-10-11] MEDS: levETIRAcetam 500 MG TABLET (FP) PO SCH (10:13)
[2017-10-11] MEDS: PANTOPRAZOLE 40 MG TABLET (FP) PO SCH (10:13)
--- NOTE | 2017-10-11 12:19 | PN ---
Progress Note, Physician History of Present Illness: stable dong well wound looks good edmund look good - Current Medication List Current Medications: Active Medications Amlodipine Besylate (Norvasc -) 5 mg PO DAILY [facility] Last Admin: 10/11/17 10:13 Dose: 5 mg Heparin Sodium (Porcine) (Heparin -) 5,000 unit SQ TID [facility] Last Admin: 10/11/17 08:04 Dose: Not Given Hydrochlorothiazide (Hctz -) 12.5 mg PO DAILY [facility] Last Admin: 10/11/17 10:13 Dose: 12.5 mg IV Flush (Picc Line Flush) 8 ml IVPUSH PRN PRN PRN Reason: Protocol Ceftriaxone Sodium 2 gm/ (Dextrose) 100 mls @ 200 mls/hr IVPB DAILY [facility]; Protocol Last Admin: 10/11/17 10:13 Dose: 200 mls/hr Insulin Aspart (Novolog Vial Sliding Scale -) 1 vial SQ TIDAC [facility]; Protocol Last Admin: 10/11/17 11:16 Dose: 4 units Labetalol HCl (Normodyne Injection -) 10 mg IVPUSH [id number] PRN PRN Reason: HYPERTENSION Levetiracetam (Keppra -) 500 mg PO BID [facility] Last Admin: 10/11/17 10:13 Dose: 500 mg Pantoprazole Sodium (Protonix -) 40 mg PO DAILY [facility] Last Admin: 10/11/17 10:13 Dose: 40 mg - Objective Vital Signs: Vital Signs Temperature 98.3 F 10/11/17 06:00 Pulse Rate 62 10/11/17 06:00 Respiratory Rate 20 10/11/17 06:00 Blood Pressure 124/64 10/11/17 06:00 O2 Sat by Pulse Oximetry (%) 97 10/10/17 21:00 Constitutional: Yes: No Distress, Calm Cardiovascular: Yes: Regular Rate and Rhythm Respiratory: Yes: Regular, CTA Bilaterally Gastrointestinal: Yes: Normal Bowel Sounds, Soft Musculoskeletal: Yes: WNL Extremities: Yes: WNL Wound/Incision: Yes: Clean/Dry, Open to air Neurological: Yes: Alert, Oriented Psychiatric: Yes: Alert, Oriented Labs: CBC, BMP 10/11/17 07:00 10/11/17 07:00 INR, PTT INR 1.12 (0.82-1.09) 10/04/17 01:16 Assessment/Plan Seizure Brain Mass/Abscess Lung Nodule h/o Colon Ca HTN Hyperlipidemia plan continue ceftriaxone rest continue current mgmt 3 more weeks of iv abx wound care patient going for picc line
[2017-10-11 15:18] VITALS: BP 145/91; PULSE 91; TEMP 97.5
--- NOTE | 2017-10-11 17:54 | PN ---
Teaching Attending Note Name of Resident: Luanne Collazo ATTENDING PHYSICIAN STATEMENT I saw and evaluated the patient. I reviewed the resident's note and discussed the case with the resident. I agree with the resident's findings and plan as documented. SUBJECTIVE: OBJECTIVE: Vital Signs Period Temp Pulse Resp BP Sys/Gardiner Pulse Ox Last 24 Hr 97.5 F-98.5 F 60-91 20-20 122-145/61-91 97-100 Laboratory Results - last 24 hr 10/10/17 10/11/17 10/11/17 17:39 05:55 07:00 WBC 6.3 RBC 4.53 Hgb 14.0 Hct 39.6 MCV 87.5 MCH 30.9 MCHC 35.3 RDW 12.8 Plt Count 238 MPV 10.9 Neutrophils % 56.8 Lymphocytes % 31.4 Monocytes % 10.0 Eosinophils % 1.3 Basophils % 0.5 Nucleated RBC % 0 Sodium Potassium Chloride Carbon Dioxide Anion Gap BUN Creatinine POC Glucometer 175 127 Random Glucose Calcium Phosphorus Magnesium 10/11/17 10/11/17 07:00 11:14 WBC RBC Hgb Hct MCV MCH MCHC RDW Plt Count MPV Neutrophils % Lymphocytes % Monocytes % Eosinophils % Basophils % Nucleated RBC % Sodium 140 Potassium 4.7 Chloride 105 Carbon Dioxide 27 Anion Gap 8 BUN 16 Creatinine 0.9 POC Glucometer 225 Random Glucose 131 H Calcium 9.0 Phosphorus 3.6 Magnesium 2.2 ASSESSMENT AND PLAN:
--- NOTE | 2017-10-11 20:48 | DS ---
Physical Exam: SUBJECTIVE: Patient seen and examined at bedside. No acute events overnight. Today, pt states that he is feeling well and is ready to go home. Will have help at home with abx infusions. Denies LUJAN, new motor neuro deficits, blurred vision, chest pain, SOB, or changes in urinary or bowel function. OBJECTIVE: Vital Signs Period Temp Pulse Resp BP Sys/Gardiner Pulse Ox Last 24 Hr 97.5 F-98.5 F 60-91 20-20 122-145/61-91 97-100 PHYSICAL EXAM GENERAL: The patient is in good spirits. awake, alert, and fully oriented, in no acute distress. HEAD: +edmund intact, without drainage. No facial asymmetry EYES: PERRL, extraocular movements intact, sclera anicteric, conjunctiva clear. ENT: Ears normal, nares patent, oropharynx clear without exudates, moist mucous membranes. NECK: Trachea midline, supple. LUNGS: Breath sounds equal, clear to auscultation bilaterally, no wheezes, no crackles, no accessory muscle use. HEART: Regular rate and rhythm, S1, S2 without rub or gallop. +systolic murmur - apex ABDOMEN: Soft, nontender, nondistended, normoactive bowel sounds, no guarding, no rebound, no hepatosplenomegaly, no masses. EXTREMITIES: 2+ dp, pt pulses, warm, well-perfused, no edema. NEUROLOGICAL: Cranial nerves II through XII grossly intact. motor strength 5/5 in upper and lower extremities. uvula midline, no facial asymmetry. sensation intact throughout. 2+ patellar reflexes. PSYCH: Normal mood, normal affect. SKIN: Warm, dry, normal turgor LABS Laboratory Results 10/04/17 10/04/17 10/04/17 01:16 08:11 08:11 WBC 11.9 H Hemoglobin A1c % 6.6 H HIV 1&2 Antibody Screen Negative HIV P24 Antigen Negative 10/05/17 10/05/17 10/05/17 06:30 06:30 06:30 WBC 17.7 H D Random Glucose 227 H D LD Total 135 Carcinoembryonic Ag 3.3 10/06/17 10/06/17 10/07/17 05:30 05:30 06:00 WBC 15.7 H 10.1 H D Random Glucose 179 H D 10/10/17 10/10/17 07:00 07:30 WBC 7.3 Hgb 14.3 Hct 40.6 Plt Count 202 Sodium 139 Potassium 5.1 D Chloride 105 Carbon Dioxide 27 BUN 16 D Creatinine 1.1 D Random Glucose 131 H IMAGING 10/04/17: CXR: shallow inspiration. No evidence of widening of superior mediastinum. The heart is borderline enlarged. Normal contous of the thoracic aorta. Normal aeration of the right lung. The right diaphragm is slightly elevated. No pneumothorax, or large pleural effusion is seen. No evidence of CHF. 10/04/17: Head CT without contrast: vasogenic edema of the left posterior frontal /parietal high convexity with questionable poorly visualized lesion measuring 1.7cm for which correlation with contrast-enhanced MRI of the brain recommended 10/04/17: Abd/pelvis CT: peripheral LLL mass, can't exclude malignancy. need core biopsy, PET/CT. no pathology noted in chest, abdomen, pelvis. 10/05/17: Brain MRI: 2cm L posterior parietal sorto matter mass lesion- high signal intensity T1, infectious or metastatic with perifocal edema. 10/05/17: Repeat brain MRI after surgery: irregular peripheral enhancement medial , inferior margin. can't r/o residual tumor 10/06/17: ECHO: EF 63.4%, mild [place], [place], [place], without vegetations 10/06/17: Head CT non-con: subsequent to prior study s/p resection of L parietal lobe with post surgical changes seen at the craniotomy site and also anterior including edema and air and a single focus of increased density perhaps representing a focal intracerebral hemorrhage; less than 1cm in size. no evidence of midline shift 10/06/17: L-spine w/contrast: w/o epidural abscess . lishthesis with bilateral spondylolysis - severe b/l foraminal stenosis on L5 nerve roots, small L paracentral disc protrusion L4-L5 10/06/17: C-spine, T-spine w/contrast: no epidural abscess noted, 3.1cm opacity L lung PNA vs. neoplastic dz Microbiology 10/05/17 22:15 Blood - Arterial Blood Parasites Smear (ELIN) - Final 10/05/17 16:40 Blood - Peripheral Venous Blood Culture - Final NO GROWTH AFTER 5 DAYS INCUBATION 10/05/17 16:40 Blood - Peripheral Venous Blood Culture - Final NO GROWTH AFTER 5 DAYS INCUBATION 10/05/17 14:45 Abscess Gram Stain - Final 10/05/17 14:45 Abscess Anaerobic Culture - Final Streptococcus Constellatus NO ANAEROBES WERE ISOLATED 10/05/17 14:45 Abscess AFB Smear Concentration - Final 10/05/17 13:14 Head Gram Stain - Final 10/05/17 14:45 Abscess Mycobacterial Culture - Preliminary 10/05/17 14:45 Abscess ZULY Preparation - Preliminary 10/05/17 14:45 Abscess Fungal Culture - Preliminary HOSPITAL COURSE: Date of Admission:10/04/17 Date of Discharge: 10/11/17 Admit diagnosis: New onset seizure, due to the possible brain mass 62 y/o M with HTN, HLD, hx of colon ca(resection in 1994, recent colonoscopy 2- 3 months ago without pathology) BIBEMS for new onset seizure. Pt was in ED on day before presentation (10/03 4pm) for numbness in his lower right leg, however left before he was seen. At home, his son notes changes in his is ability to move as pt has difficulty standing, worsening right leg numbness that now extended to the right side of his torso. As pt was walked to the car, he began to stiffen and tremble, quickling involving his face, as his mouth was seen to have down turned corners. The episode lasted 2-3mins, and pt continued to have difficulty controlling this right side. He had a witnessed Jacksonian seizure in the ED. During both episodes pt was conversant, alert, awake, no loss of bowel function, no post-ictal state. Pt was admitted for new onset seizure due to possible brain mass. 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 -10/05/17: Suggestive Head Ct confirmed by Brain MRI: 2cm L posterior parietal sorto matter mass lesion- high signal intensity T1, infectious or metastatic with perifocal edema. -During surgery for mass (10/05/17), pt found to have abscess during procedure which grew +alpha hemolytic strep (strep constellatus) suggesting possible dental involvement -ECHO and KAYDEN performed, without any noted vegetations -Abx course: Pt completed vanco 1.25 g, zosyn 3.375 q8h IVPB qd x 2 days before he was changed to ceftriaxone 2gm IVPB qd. flagyl has been d/c. Pt will need 3 additional wks abx via PICC/tunneled cath. He will perform infusions at home. -Pt was followed by neurology, neurosurgery, infection, oncology and medicine teams -Earlier in his course, he was maintained on Dexamethasone 4mg PO q6h - has been d/c -His SBP goal was maintained at <130 -For pain control, he was on roxicodone 5mg q4 PRN, with 10mg q4 PRN for higher intensity - however had low requirement of pain meds. #New RUE stiffness-resolved -Noted few days after procedure, however stat Head CT revealed expected post-op changes: edema and air, single focus of increased density perhaps representing a focal intracerebral hemorrhage; less than 1 cm in size. no midline shift; this was discussed with neurosurgery team. no additional intervention needed -C, T, L-spine was performed - and r/o epidural abscess. #peripheral LLL mass, needs bx to determine if new 1' or mets -10/04/17: Abd/pelvis CT: peripheral LLL mass, can't exclude malignancy. need core biopsy, PET/CT. no pathology noted in chest, abdomen, pelvis. -will likely need outpatient CT guided lung bx, and prior will need PET scan. Pt given follow-up referrals for oncology and pulm #New onset seizure, likely 2/2 parietal lobe mass -Pt was maintained on Keppra 500mg PO BID for seizure prophylaxis, and this will continue on discharge #Hx colon CA (resected 1994) -June colonoscopy - WNL; results obtained from [facility] -CEA-WNL at our institution #HTN-controlled during hospitalization -Continue lisinopril 40 mg PO qd -amlodipine 10mg PO qd -started back on HCTZ 12.5 mg PO qd #New DM may be 2/2 steroids pt was receiving (dex) -A1c 6.6 -ISS ACHS, BGM in hospital -pt discharged on metformin 500mg PO qd #HLD -Continue lipitor 80 mg PO qHS Minutes to complete discharge: 50 Discharge Summary Reason For Visit: NEW ONSET SEIZURE,LESION OF LEFT PARITETAL LOBE OF Condition: Good - Instructions Diet, Activity, Other Instructions: You were in the hospital because you were found to have a brain abscess. An abscess is a confined pocket of contents that can collect in the tissues, organs , or spaces in the body. You had a surgery with Dr. Bryan to evacuate this abscess. While you were in the hospital you have had the following: -ECHO (picture of your heart) to see if there were any vegetations on your heart valves: this was negative -KAYDEN (another type of picture of the heart): also negative -Blood culture: your blood grew a bacteria called "streptococcus constellatus"; you have been on IV antibiotics for this. -Imaging of your spine: any abscess in your spine was ruled out -Head CT scan: this was used to follow-up the progress of your wound after surgery, you did not have significant new changes in your scan after surgery. -You have been followed by the neurosurgery, medicine, oncology, pulmonary, and infection teams. You may continue your home medications. We are sending you home on the antibiotic: Rocephin 2grams IV via PICC line daily. A PICC line is the line that will help us give you antibiotics after your discharge. You will have a PICC line placed before leaving the hospital. You will be taught by nursing services how to administer the antibiotics, or how your family members can. Make sure you do this once a day for the next three weeks. -You are also being continued on the following medicine: -Keppra 500mg tablet - twice day, every day: this is to prevent seizures. -you are being started on metformin 500mg daily for diabetes. -We would like you to follow up with your primary care doctor, an oncologist, and a lung doctor in 1 week to discuss your hospital visit. We are giving you referrals for the following doctors: -Primary care doctor - 1 week -Oncologist - Dr. Mai - 1 week -Pulmonary/lung doctor: Dr. Mejía - 1 week -Your neurosurgeon: Dr. Bryan - 1 week ; he will determine when your edmund are removed. -A neurologist, Dr. Duncan - 1 week -You will need a PET scan to determine if you have any other masses/or lesions in the body. You may also need a lung biopsy of the nodule that was found while you were in the hospital. If you develop new weakness in your arms or legs, or difficulty with movement, blurred vision, or chest pain, please go to the hospital. We hope you feel better soon. Referrals: Manuel York MD [Primary Care Provider] - 1 Week Carlos Bryan MD, FAANS [Staff Physician] - 1 Week Wallace Duncan DO [Staff Physician] - 1 Week Teetee Mai MD [Staff Physician] - 1 Week Sunil Mejía MD, MD [Staff Physician] - 1 Week Disposition: VNS/HOME HEALTH CARE - Home Medications Comprehensive Discharge Medication List: Ambulatory Orders Amlodipine Besylate/Benazepril [Lotrel 10-20 mg Capsule] 1 each PO DAILY Atorvastatin Ca [Lipitor] 80 mg PO HS 06/30/17 Hydrochlorothiazide [Hctz -] 12.5 mg PO DAILY 06/30/17 Ceftriaxone [Rocephin -] 2 gm IVPB DAILY #21 vial 10/11/17 Metformin HCl 500 mg PO DAILY #30 tablet 10/11/17 Picc Line Flush [Picc Line Flush -] 8 ml IVPUSH PRN PRN 30 Days ml 10/11/17 levETIRAcetam [Keppra -] 500 mg PO BID #60 tablet 10/11/17 This patient is new to me today: No Emergency Visit: No Critical Care patient: No - Discharge Referral Referred to [id number] No
== END 2017-10-11 16:18 | disposition home health service (06) | DRG 27 ==
LOC: JER 00:57 → JERBED 02:47 → OBSVTOIN 03:38 → J4W 04:36 → JICU 10-05 15:43 → J8W 10-06 20:32
PROVIDERS: ADMIT Internal Medicine; ATTEND Internal Medicine
PROC: 00970ZZ Drainage of Cerebral Hemisphere, Open Approach (ICD-10-PCS; principal; 2017-10-05 11:00)
DX: G93.9 Disorder of brain, unspecified (principal); G06.0 Intracranial abscess and granuloma; R56.9 Unspecified convulsions; D72.829 Elevated white blood cell count, unspecified; I10 Essential (primary) hypertension; E78.5 Hyperlipidemia, unspecified; R60.9 Edema, unspecified; R91.1 Solitary pulmonary nodule; E11.9 Type 2 diabetes mellitus without complications; Z85.038 Personal history of other malignant neoplasm of large intestine
CPT/HCPCS: 36415; 36569; 70450-TC; 70553-TC; 71045-TC-FY; 71260-TC; 72142-TC; 72147-TC; 72149-TC; 74177-TC; 77001-TC-FY; 80048; 80053; 81003; 82378; 82550; 82962; 83036; 83605; 83615; 83735; 84100; 84443; 84484; 84550; 85025; 85027; 85610; 85651; 86140; 86850; 86900; 86901; 87040; 87070; 87075; 87102; 87116; 87205; 87206; 87207; 87210; 87389; 93005; 93010; 93306-TC; 93312; 93325; 94760; 99284-25; C1751; C1887; G0378; G0480; J1644; J7030

== ENCOUNTER 2022-08-18 08:20 | Day surgery (SDC) | payer OTHER, BC ==
[2022-08-16 14:57] VITALS: BMI 27.7
[2022-08-18 08:40] VITALS: RESP 18
[2022-08-18 09:21] VITALS: TEMP 97.8
[2022-08-18 09:32] VITALS: BP 121/63; PULSE 78
== END 2022-08-18 09:51 | disposition home or self-care (01) ==
LOC: FASU-ENDO 08:20
PROVIDERS: ATTEND Internal Medicine Gastroenterology
PROC: 0DJD8ZZ Inspection of Lower Intestinal Tract, Via Natural or Artificial Opening Endoscopic (ICD-10-PCS; principal; 2022-08-18 08:53)
DX: Z12.11 Encounter for screening for malignant neoplasm of colon (principal); D12.2 Benign neoplasm of ascending colon; K63.5 Polyp of colon; Z98.0 Intestinal bypass and anastomosis status; Z86.010 Personal history of colon polyps; Z83.71 Family history of colonic polyps
CPT/HCPCS: 88305-TC